=== PATIENT | male | born 1960 | race Caucasian/White ===

== ENCOUNTER 2020-10-29 08:40 | Emergency (ER) | payer OTHER, SELFPAY ==
--- NOTE | 2020-10-29 10:22 | EDPHYS ---
Physician Documentation [facility] Name: Ander Jean Age: 60 yrs Sex: Male : 1960 Arrival Date: 10/29/2020 Time: 08:46 Bed Waiting Private MD: ED Physician Pablo Velasquez HPI: 10/29 10:15 This 60 yrs old Male presents to ER via Unassigned with complaints of Foot jr8 Pain. 10:15 The patient presents with pain, tenderness. The complaints affect the right ankle. jr8 Onset: The symptoms/episode began/occurred acutely, today. Associated signs and symptoms: The patient has no apparent associated signs or symptoms. Severity of symptoms: At their worst the symptoms were mild, in the emergency department the symptoms are unchanged. The patient has not experienced similar symptoms in the past. The patient has not recently seen a physician. 10:19 This is a 60-year-old patient that presented to the emergency room with right lateral jr8 malleoli or pain. Stated that it started acutely but does not remember doing anything. Denies past trauma to the region as well.. Historical: - Allergies: 10:28 Codeine; ca1 10:28 PENICILLINS; ca1 - PMHx: 10:28 Hypertension; ca1 - Immunization history:: Client reports receiving the 2nd dose of the Covid vaccine, Client reports receiving the 1st dose of the Covid vaccine. - Social history:: Smoking status: Patient denies any tobacco usage or history of. ROS: 10:19 Eyes: Negative for injury, pain, redness, and discharge, ENT: Negative for injury, jr8 pain, and discharge, Neck: Negative for injury, pain, and swelling, Cardiovascular: Negative for chest pain, palpitations, and edema, Respiratory: Negative for shortness of breath, cough, wheezing, and pleuritic chest pain, Abdomen/GI: Negative for abdominal pain, nausea, vomiting, diarrhea, and constipation, Back: Negative for injury and pain, Skin: Negative for injury, rash, and discoloration, Neuro: Negative for headache, weakness, numbness, tingling, and seizure. 10:19 MS/extremity: Positive for pain, tenderness, of the right ankle. Exam: 10:19 Constitutional: This is a well developed, well nourished patient who is awake, alert, jr8 and in no acute distress. Cardiovascular: Regular rate and rhythm with a normal S1 and S2. No gallops, murmurs, or rubs. Normal PMI, no JVD. No pulse deficits. Respiratory: Lungs have equal breath sounds bilaterally, clear to auscultation and percussion. No rales, rhonchi or wheezes noted. No increased work of breathing, no retractions or nasal flaring. Skin: Warm, dry with normal turgor. Normal color with no rashes, no lesions, and no evidence of cellulitis. Neuro: Awake and alert, GCS 15, oriented to person, place, time, and situation. Cranial nerves II-XII grossly intact. Motor strength 5/5 in all extremities. Sensory grossly intact. Cerebellar exam normal. Normal gait. 10:19 Musculoskeletal/extremity: Extremities: grossly normal except: noted in the right ankle: pain, tenderness, Mild swelling over the right lateral malleolus. No external signs of trauma, ROM: intact in all extremities, full active range of motion, full passive range of motion, Circulation is intact in all extremities. Sensation intact. Vital Signs: 10:26 Resp 16 S; Temp 97.6(TE); Pulse Ox 100% on R/A; Weight 154.22 kg (R); Pain 6/10; ca1 10:29 Pulse 63; ca1 10:30 BP 116 / 63; ca1 MDM: 08:59 Patient medically screened. jr8 10:19 Data reviewed: vital signs, nurses notes, radiologic studies, plain films. Data jr8 interpreted: Pulse oximetry: on room air is 100 %. Interpretation: normal. Counseling: I had a detailed discussion with the patient and/or guardian regarding: the historical points, exam findings, and any diagnostic results supporting the discharge/admit diagnosis, radiology results, the need for outpatient follow up, a family practitioner. 10/29 09:34 Order name: XRAY Foot RIGHT 3 View jr8 Administered Medications: No medications were administered Disposition: 19:11 Co-signature as Attending Physician, Pablo Velasquez MD I agree with the assessment and kdr plan of care. Disposition Summary: 10/29/20 10:21 Discharge Ordered Location: Home jr8 Problem: new jr8 Symptoms: have improved jr8 Condition: Stable jr8 Diagnosis - Pain in ankle and joints of foot jr8 Followup: jr8 - With: Private Physician - When: As needed - Reason: Recheck today's complaints, Continuance of care, Re-evaluation by your physician Discharge Instructions: - Discharge Summary Sheet jr8 - Ankle Pain jr8 Forms: - Medication Reconciliation Form jr8 - Thank You Letter jr8 - Antibiotic Education jr8 - Prescription Opioid Use jr8 Signatures: Dispatcher [employer] EDPablo Gandara MD MD kdr Roszak, Josh, PA PA jr8 Radha Davila RN RN ca1
--- NOTE | 2020-10-29 10:31 | ER ---
Nurse's Notes [facility] Name: Ander Jean Age: 60 yrs Sex: Male : 1960 Arrival Date: 10/29/2020 Time: 08:46 Bed Waiting Private MD: Diagnosis: Pain in ankle and joints of foot Presentation: 10/29 10:26 Chief complaint: Patient states: R foot pain, swelling x 3 days. Coronavirus screen: ca1 Client denies travel out of the [place] in the last 14 days. At this time, the client does not indicate any symptoms associated with coronavirus-19. Ebola Screen: Patient negative for fever greater than or equal to 101.5 degrees Fahrenheit, and additional compatible Ebola Virus Disease symptoms Patient denies exposure to infectious person. Patient denies travel to an Ebola-affected area in the 21 days before illness onset. No symptoms or risks identified at this time. Initial Sepsis Screen: Does the patient meet any 2 criteria? No. Patient's initial sepsis screen is negative. Does the patient have a suspected source of infection? No. Patient's initial sepsis screen is negative. Risk Assessment: Do you want to hurt yourself or someone else? Patient reports no desire to harm self or others. Onset of symptoms was October 29, 2020. 10:26 Method Of Arrival: Wheelchair ca1 10:26 Acuity: THANG 4 ca1 Historical: - Allergies: 10:28 Codeine; ca1 10:28 PENICILLINS; ca1 - PMHx: 10:28 Hypertension; ca1 - Immunization history:: Client reports receiving the 2nd dose of the Covid vaccine, Client reports receiving the 1st dose of the Covid vaccine. - Social history:: Smoking status: Patient denies any tobacco usage or history of. Screenin:29 Abuse screen: Denies threats or abuse. Denies injuries from another. Nutritional ca1 screening: No deficits noted. Tuberculosis screening: No symptoms or risk factors identified. Fall Risk None identified. Assessment: 10:29 General: Appears in no apparent distress. comfortable, Behavior is calm, cooperative, ca1 appropriate for age. Pain: Complains of pain in right ankle and dorsum of right foot Pain currently is 6 out of 10 on a pain scale. Neuro: Level of Consciousness is awake, alert, obeys commands, Oriented to person, place, time, situation. Derm: Skin is intact, is healthy with good turgor, Skin is pink, warm \T\ dry. Musculoskeletal: Circulation, motion, and sensation intact. Capillary refill < 3 seconds, Swelling present in right foot. Vital Signs: 10:26 Resp 16 S; Temp 97.6(TE); Pulse Ox 100% on R/A; Weight 154.22 kg (R); Pain 6/10; ca1 10:29 Pulse 63; ca1 10:30 BP 116 / 63; ca1 ED Course: 08:46 Patient arrived in ED. as 08:59 Wilfrido Mcfarlane PA is PHCP. jr8 08:59 Pablo Velasquez MD is Attending Physician. jr8 10:02 XRAY Foot RIGHT 3 View In Process Unspecified. EDMS 10:28 Triage completed. ca1 10:28 Arm band placed on right wrist. ca1 10:29 Patient has correct armband on for positive identification. ca1 10:29 No provider procedures requiring assistance completed. Patient did not have IV access ca1 during this emergency room visit. 10:30 Radha Davila RN is Primary Nurse. ca1 Administered Medications: No medications were administered Outcome: 10:21 Discharge ordered by . jr8 10:31 Discharged to home via wheelchair. ca1 10:31 Condition: stable 10:31 Discharge instructions given to patient, Instructed on discharge instructions, follow up and referral plans. Demonstrated understanding of instructions, follow-up care. 10:31 Patient left the ED. ca1 Signatures: Dispatcher [employer] EDMS Ana Segovia Josh, PA PA jr8 Radha Davila, RN RN ca1
[2020-10-29 11:00] VITALS: TEMP 97.6; O2SAT 100
[2020-10-29 11:08] VITALS: BP 116/63
--- NOTE | 2020-10-29 11:14 | RAD REPORT ---
EXAM DESCRIPTION: RAD - Foot Right 3 View - 10/29/2020 10:04 am CLINICAL HISTORY: Right foot pain FINDINGS: No fracture or dislocation is seen Large calcaneal spurs. Prominent spur dorsal aspect of the talonavicular joint
== END 2020-10-29 10:31 | disposition home or self-care (01) ==
LOC: ER 08:40
DX: M25.571 Pain in right ankle and joints of right foot (principal); I10 Essential (primary) hypertension; Z88.0 Allergy status to penicillin; Z88.5 Allergy status to narcotic agent
CPT/HCPCS: 99283

== ENCOUNTER 2023-07-20 17:18 | Inpatient (IN) | payer OTHER ==
--- OUTSIDE RECORDS SUMMARY | 2023-07-20 17:25 | XMS REPORT | Continuity of Care Document ---
Author Name Unknown Address [address] [place] [address] [facility] Address [address] [place] [address] Care Team Providers Care Quality Assurance Specialist Name Role Phone Judit Parker Primary Care Physician SID PRINCE Attending Clinician Unavailable ARLIN MIKE Attending Clinician Unavailab SANDY Hussein Attending Clinician Unav ailPALOMA Brown Attending Clinician Unava ilable LIDIA HALE Attending Clinician Unava ilable MALA GREEN Attending Clinician Unavailable MD LASHELL Attending Clinician Unavailab BATSHEVA Haas Attending Clinician Unavailable HIRAM MACK Attending Clinician Unavailable KATHY LOPEZ Attending Clinician Unavailable LAB90 Attending Clinician Unavailable PL, TECH 1 Attending Clinician Unavailable AZIZA ALEMAN Attending Clinician Unavailable DARIUSZ MATTHEWS Attending Clinician Unavailab GABRIELA Amaral Attending Clinician Unavailable [id number] Attending Clinician Unavailable DIANE WELSH Attending Clinician Unavailable KIM ARANA Attending Clinician Unav ailable Payers Payer Name Policy Type Policy Number Effective Date Expirati on Date Source AETMONET MARSHALL [facility] O SPECIAL PROCEDURES TECH 94 ON 9 [id number] 2023-04-26 00:00:00 Problems Condition Name Condition Details Condition Category Status Onset Date Resolution Date Last Treatment Date Treating Clinician Comments Source Type 2 diabetes mellitus Type 2 diabetes mellitus Disease Active 07-11 00:00: 00 Jessika espinoza HTN (hypertens ion) HTN (hypertens ion) Disease Active 07-11 00:00: 00 Jessika espinoza COPD (chronic obstructiv e pulmonary disease) COPD (chronic obstructiv e pulmonary disease) Disease Active 07-11 00:00: 00 Jessika espinoza Aortic arch aneurysm Aortic arch aneurysm Disease Active 07-11 00:00: 00 Jessika espinoza Hyperlipid emia Hyperlipid emia Disease Active 07-11 00:00: 00 Jessika espinoza Allergies, Adverse Reactions, Alerts Allergy Name Allergy Type Status Severity Reaction(s) Onset Date Inactive Date Treating Clinician Comments Source Penicill ins Propensi ty to adverse reaction s Active Nausea and Vomiting 07-10 00:00: 00 Jessika espinoza Penicill ins - CLASS Propensi ty to adverse reaction to drug Active 11-05 00:00: 00 Codeine Propensi ty to adverse reaction to drug Active 06-10 00:00: 00 Social History Social Habit Start Date Stop Date Quantity Comments Source Gender identity Sarah Georges - External Sexual orientation Tina adamelai Georges - External History of Social function 2022-07-11 00:00:00 2022-07-11 00:00:00 Jessika Georges - External Sex Assigned At 1960 00:00:00 1960 00:00:00 Jessika Georges - External Smoking Status Start Date Stop Date Source Never smoked tobacco Jessika Georges - External Medications Ordered Medication Name Filled Medication Name Start Date Stop Date Current Medication? Ordering Clinician Indication Dosage Frequency Signature (SIG) Comments Components Source Albuterol Sulfate 108 (90 Base) MCG/ACT inhalation AEROSOL POWDER, BREATH ACTIVATED 11-13 11:10: 22 11-13 00:00 :00 No Inhale into the lungs Jessika espinoza Montelukast (SINGULAIR) 10 MG oral Tablet tablet 11-13 11:10: 22 11-13 00:00 :00 No 10mg Take 1 tablet (10 mg total) by mouth nightly. Jessika espinoza Ascorbic Acid (VITAMIN C OR) 11-13 11:01: 46 Yes Take by mouth Jessika espinoza Glimepiride 2 MG oral Tablet 11-13 00:00: 00 Yes [id number] TAKE 1 TABLET (2 MG) BY MOUTH EVERY MORNING BEFORE BREAKFAST. Jessika espinoza LISINOPRIL- HCTZ 20-25 MG oral Tablet 11-13 00:00: 00 Yes [id number] 2{tbl} Take 2 tablets by mouth daily. Jessika espinoza Atorvastati n Calcium 10 MG oral Tablet 11-13 00:00: 00 Yes [id number] 10mg Take 1 tablet (10 mg total) by mouth nightly. Jessika espinoza Montelukast (SINGULAIR) 10 MG oral Tablet tablet 11-13 00:00: 00 Yes [id number] 10mg Take 1 tablet (10 mg total) by mouth nightly. Jessika espinoza Albuterol Sulfate 108 (90 Base) MCG/ACT inhalation AEROSOL POWDER, BREATH ACTIVATED 11-13 00:00: 00 Yes [id number] 1{inhal ation} Inhale 1 Inhalation into the lungs every 4 to 6 hours as needed. Jessika espinoza Albuterol-I pratropium 0.5-2.5 (3) MG/3ML inhalation Solution 11-13 00:00: 00 Yes [id number] 2.5mg Inhale 3 mL (2.5 mg total) into the lungs every 6 (six) hours. Jessika espinoza Fluticasone -Salmeterol 250-50 MCG/ACT inhalation AEROSOL POWDER, BREATH ACTIVATED 11-13 00:00: 00 Yes [id number] 1{puff} Inhale 1 puff into the lungs 2 times daily. Jessika espinoza Ipratropium (ATROVENT) 0.02 % inhalation Solution 11-13 00:00: 00 Yes [id number] 500ug Take 2.5 mL (500 mcg total) by nebulizati on 3 times daily. Jessika espinoza Trulicity 0.75 MG/0.5ML subcutaneou s Solution Pen-injecto r 11-13 00:00: 00 Yes [id number] .75mg Inject 0.75 mg into the skin once a week. Jessika espinoza Atorvastati n Calcium 10 MG oral Tablet 8-11 00:00: 00 11-13 00:00 :00 No [id number] 10mg Take 1 tablet (10 mg total) by mouth nightly Jessika espinoza Glimepiride 2 MG oral Tablet 07 00:00: 00 11-13 00:00 :00 No [id number] TAKE 1 TABLET (2 MG) BY MOUTH EVERY MORNING BEFORE BREAKFAST Jessika espinoza Carvedilol 3.125 MG oral Tablet 10-18 00:00: 00 Yes 3.125mg Take 1 tablet (3.125 mg total) by mouth in the morning and 1 tablet (3.125 mg total) in the evening. Take with meals. Jessika espinzoa Albuterol-I pratropium 0.5-2.5 (3) MG/3ML inhalation Solution 10-16 00:00: 00 11-13 00:00 :00 No [id number] 2.5mg Inhale 3 mL (2.5 mg total) into the lungs every 6 (six) hours Jessika espinoza Levocetiriz ine Dihydrochlo ride 5 MG oral Tablet 15 00:00: 00 Yes [id number] 5mg Take 1 tablet (5 mg total) by mouth every day at 5:00 PM Jessika espinoza Clonidine (CATAPRES) 0.2 MG oral Tablet 07-27 09:33: 42 Yes .4mg Take 2 tablets (0.4 mg total) by mouth daily Jessika espinoza Glimepiride 2 MG oral Tablet 07-27 00:00: 00 Yes [id number] 2mg Take 1 tablet (2 mg total) by mouth every morning (before breakfast) Jessika espinoza Ipratropium (ATROVENT) 0.02 % inhalation Solution 07-18 00:00: 00 11-13 00:00 :00 No Jessika espinoza Albuterol-I pratropium 0.5-2.5 (3) MG/3ML inhalation Solution 07-14 00:00: 00 Yes [id number] 2.5mg Inhale 3 mL (2.5 mg total) into the lungs every 6 (six) hours Jessika espinoza Carvedilol 25 MG oral Tablet 07-14 00:00: 00 Yes [id number] 25mg Take 1 tablet (25 mg total) by mouth in the morning and 1 tablet (25 mg total) in the evening. Take with meals. Jessika espinoza Fenofibrate 160 MG oral Tablet 07-14 00:00: 00 Yes [id number] 160mg Take 1 tablet (160 mg total) by mouth daily Jessika espinoza Metformin HCl 500 MG oral Tablet 07-14 00:00: 00 Yes [id number] 500mg Take 1 tablet (500 mg total) by mouth in the morning and 1 tablet (500 mg total) in the evening. Take with meals. Jessika espinoza Montelukast (SINGULAIR) 10 MG oral Tablet tablet 07-14 00:00: 00 Yes [id number] 10mg Take 1 tablet (10 mg total) by mouth nightly Jessika espinoza LISINOPRIL- HCTZ 20-25 MG oral Tablet 07-14 00:00: 00 11-13 00:00 :00 No [id number] 1{tbl} Take 1 tablet by mouth 2 times daily Jessika espinoza Metformin HCl 1000 MG oral Tablet 07-13 00:00: 00 Yes [id number] 1000mg Take 1 tablet (1,000 mg total) by mouth daily (with breakfast) . Jessika espinoza Albuterol (PROVENTIL) (2.5 MG/3ML) 0.083% inhalation Inhalant Solution 07-13 00:00: 00 Yes [id number] 2.5mg Take 2.5 mg by nebulizati on once for 1 dose Jessika espinoza Atorvastati n Calcium 10 MG oral Tablet 07-13 00:00: 00 Yes [id number] Jessika espinoza Lisinopril 10 MG oral Tablet 07-13 00:00: 00 Yes Jessika espinoza LISINOPRIL- HCTZ 20-25 MG oral Tablet 07-11 10:: 07-11 00:00 :00 No 1{tbl} Take 1 tablet by mouth 2 times daily Jessika espinoza Carvedilol 25 MG oral Tablet 07-11 10:07-11 00:00 :00 No 25mg Take 1 tablet (25 mg total) by mouth in the morning and 1 tablet (25 mg total) in the evening. Take with meals. Jessika espinoza Metformin HCl 500 MG oral Tablet 07-11 10:07-11 00:00 :00 No 500mg Take 1 tablet (500 mg total) by mouth in the morning and 1 tablet (500 mg total) in the evening. Take with meals. Jessika espinoza Montelukast (SINGULAIR) 10 MG oral Tablet tablet 07-11 10:: 07-11 00:00 :00 No 10mg Take 1 tablet (10 mg total) by mouth nightly Jessika espinoza Fenofibrate 160 MG oral Tablet 07-11 10:: 07-11 00:00 :00 No 160mg Take 1 tablet (160 mg total) by mouth daily Jessika espinoza Albuterol-I pratropium 0.5-2.5 (3) MG/3ML inhalation Solution 07-11 10:: 07-11 00:00 :00 No 2.5mg Inhale 3 mL (2.5 mg total) into the lungs every 6 (six) hours Jessika espinoza Albuterol Sulfate 108 (90 Base) MCG/ACT inhalation AEROSOL POWDER, BREATH ACTIVATED 07-11 09:37: 33 Yes Inhale into the lungs Jessika espinoza Ascorbic Acid (VITAMIN C OR) 07-11 09:37: 33 Yes Take by mouth Jessika espinoza Cetirizine HCl 10 MG oral Chewable Tablet 07-11 09:37: 33 Yes 10mg Take 1 tablet (10 mg total) by mouth daily Jessika espinoza Montelukast (SINGULAIR) 10 MG oral Tablet tablet 07-11 00:00: 00 Yes [id number] 10mg Take 1 tablet (10 mg total) by mouth nightly Jessika espinoza Metformin HCl 500 MG oral Tablet 07-11 00:00: 00 Yes [id number] 500mg Take 1 tablet (500 mg total) by mouth in the morning and 1 tablet (500 mg total) in the evening. Take with meals. Jessika espinoza LISINOPRIL- HCTZ 20-25 MG oral Tablet 07-11 00:00: 00 Yes [id number] 1{tbl} Take 1 tablet by mouth 2 times daily Jessika espinoza Fenofibrate 160 MG oral Tablet 07-11 00:00: 00 Yes [id number] 160mg Take 1 tablet (160 mg total) by mouth daily Jessika espinoza Carvedilol 25 MG oral Tablet 07-11 00:00: 00 Yes [id number] 25mg Take 1 tablet (25 mg total) by mouth in the morning and 1 tablet (25 mg total) in the evening. Take with meals. Jessika espinoza Albuterol-I pratropium 0.5-2.5 (3) MG/3ML inhalation Solution 07-11 00:00: 00 Yes [id number] 2.5mg Inhale 3 mL (2.5 mg total) into the lungs every 6 (six) hours Jessika espinoza Fluticasone -Salmeterol 250-50 MCG/ACT inhalation AEROSOL POWDER, BREATH ACTIVATED 07-10 00:00: 00 11-13 00:00 :00 No Jessika Seybold - Externa l lisinopril 20 mg-hydrochl orothiazide 25 mg tablet - 00:00: 00 No 2mg doxycycline hyclate 100 mg capsule - 00:00: 00 No 1mg Dose Unknown 08-29 00:00: 00 No doxycycline hyclate 100 mg capsule 08-29 00:00: 00 No 1mg ProAir HFA 90 mcg/actuati on aerosol inhaler 08-03 00:00: 00 No 12mcg/a ctuatio n Wixela Inhub 250 mcg-50 mcg/dose powder for inhalation 08-03 00:00: 00 No 1mcg/do se lisinopril 20 mg-hydrochl orothiazide 25 mg tablet 08-03 00:00: 00 No 2mg fenofibrate 160 mg tablet 08-03 00:00: 00 No 1mg levocetiriz ine 5 mg tablet 08-03 00:00: 00 No 1mg metformin 500 mg tablet 08-03 00:00: 00 No 1mg montelukast 10 mg tablet 08-03 00:00: 00 No 1mg carvedilol 25 mg tablet 08-03 00:00: 00 No 1mg albuterol sulfate 2.5 mg/3 mL (0.083 %) solution for nebulizatio n 08-03 00:00: 00 No 3/3 mL (0.083 %) ipratropium 0.5 mg-albutero l 3 mg (2.5 mg base)/3 mL nebulizatio n soln 08-03 00:00: 00 No 3mg base)/3 mL Dose Unknown 08-03 00:00: 00 No Dose Unknown 08-03 00:00: 00 No Dose Unknown 08-03 00:00: 00 No ProAir HFA 90 mcg/actuati on aerosol inhaler 08-03 00:00: 00 No 12mcg/a ctuatio n Wixela Inhub 250 mcg-50 mcg/dose powder for inhalation 0 - 00:00: 00 No 1mcg/do se lisinopril 20 mg-hydrochl orothiazide 25 mg tablet - 00:00: 00 No 2mg fenofibrate 160 mg tablet 08-03 00:00: 00 No 1mg Dose Unknown 08-03 00:00: 00 No metformin 500 mg tablet - 00:00: 00 No 1mg montelukast 10 mg tablet 08-03 00:00: 00 No 1mg carvedilol 25 mg tablet 08-03 00:00: 00 No 1mg albuterol sulfate 2.5 mg/3 mL (0.083 %) solution for nebulizatio n 08-03 00:00: 00 No 3/3 mL (0.083 %) ipratropium 0.5 mg-albutero l 3 mg (2.5 mg base)/3 mL nebulizatio n soln 08-03 00:00: 00 No 3mg base)/3 mL Dose Unknown 08-03 00:00: 00 No Dose Unknown 08-03 00:00: 00 No Dose Unknown 08-03 00:00: 00 No lisinopril 20 mg-hydrochl orothiazide 25 mg tablet 08-01 00:00: 00 No 2mg lisinopril 20 mg-hydrochl orothiazide 25 mg tablet 08-01 00:00: 00 No 2mg fenofibrate 160 mg tablet - 00:00: 00 No 1mg fenofibrate 160 mg tablet 05-07 00:00: 00 No 1mg ProAir HFA 90 mcg/actuati on aerosol inhaler - 00:00: 00 No 12mcg/a ctuatio n Wixela Inhub 250 mcg-50 mcg/dose powder for inhalation - 00:00: 00 No 1mcg/do se erythromyci n 5 mg/gram (0.5 %) eye ointment - 00:00: 00 No 1(0.5 %) levocetiriz ine 5 mg tablet 2- 00:00: 00 No 1mg montelukast 10 mg tablet - 00:00: 00 No 1mg lisinopril 20 mg-hydrochl orothiazide 25 mg tablet - 00:00: 00 No 2mg metformin 500 mg tablet - 00:00: 00 No 1mg ProAir HFA 90 mcg/actuati on aerosol inhaler - 00:00: 00 No 12mcg/a ctuatio n Wixela Inhub 250 mcg-50 mcg/dose powder for inhalation - 00:00: 00 No 1mcg/do se erythromyci n 5 mg/gram (0.5 %) eye ointment - 00:00: 00 No 1(0.5 %) levocetiriz ine 5 mg tablet - 00:00: 00 No 1mg montelukast 10 mg tablet - 00:00: 00 No 1mg lisinopril 20 mg-hydrochl orothiazide 25 mg tablet - 00:00: 00 No 2mg metformin 500 mg tablet - 00:00: 00 No 1mg Bromfed DM 2 mg-30 mg-10 mg/5 mL oral syrup - 00:00: 00 No 10mg/5 mL albuterol sulfate 2.5 mg/3 mL (0.083 %) solution for nebulizatio n - 00:00: 00 No 3/3 mL (0.083 %) ipratropium 0.5 mg-albutero l 3 mg (2.5 mg base)/3 mL nebulizatio n soln - 00:00: 00 No 3mg base)/3 mL Bromfed DM 2 mg-30 mg-10 mg/5 mL oral syrup 1-10 00:00: 00 No 10mg/5 mL albuterol sulfate 2.5 mg/3 mL (0.083 %) solution for nebulizatio n 04-04 00:00: 00 No 3/3 mL (0.083 %) ipratropium 0.5 mg-albutero l 3 mg (2.5 mg base)/3 mL nebulizatio n soln 04-04 00:00: 00 No 3mg base)/3 mL levocetiriz ine 5 mg tablet 2020-03 00:00: 00 No 1mg levocetiriz ine 5 mg tablet 2020-03 00:00: 00 No 1mg levocetiriz ine 5 mg tablet 2020-03 00:00: 00 No 1mg levocetiriz ine 5 mg tablet 2020-03 00:00: 00 No 1mg ProAir HFA 90 mcg/actuati on aerosol inhaler 2020-03 00:00: 00 No 12mcg/a ctuatio n Wixela Inhub 250 mcg-50 mcg/dose powder for inhalation 2020-03 00:00: 00 No 1mcg/do se metformin 500 mg tablet 2020-03 00:00: 00 No 1mg lisinopril 20 mg-hydrochl orothiazide 25 mg tablet 2020-03 00:00: 00 No 2mg montelukast 10 mg tablet 2020-03 00:00: 00 No 1mg carvedilol 25 mg tablet 2020-03 00:00: 00 No 1mg simvastatin 20 mg tablet 2020-03 00:00: 00 No 1mg albuterol sulfate 2.5 mg/3 mL (0.083 %) solution for nebulizatio n 2020-03 00:00: 00 No 3/3 mL (0.083 %) ipratropium 0.5 mg-albutero l 3 mg (2.5 mg base)/3 mL nebulizatio n soln 2020-03 00:00: 00 No 3mg base)/3 mL ProAir HFA 90 mcg/actuati on aerosol inhaler 2020-03 00:00: 00 No 12mcg/a ctuatio n Wixela Inhub 250 mcg-50 mcg/dose powder for inhalation 2020-03 00:00: 00 No 1mcg/do se metformin 500 mg tablet 2020-03 00:00: 00 No 1mg lisinopril 20 mg-hydrochl orothiazide 25 mg tablet 2020-03 00:00: 00 No 2mg montelukast 10 mg tablet 2020-03 00:00: 00 No 1mg carvedilol 25 mg tablet 2020-03 00:00: 00 No 1mg simvastatin 20 mg tablet 2020-03 00:00: 00 No 1mg albuterol sulfate 2.5 mg/3 mL (0.083 %) solution for nebulizatio n 2020-03 00:00: 00 No 3/3 mL (0.083 %) ipratropium 0.5 mg-albutero l 3 mg (2.5 mg base)/3 mL nebulizatio n soln 2020-03 00:00: 00 No 3mg base)/3 mL levocetiriz ine 5 mg tablet 10-29 00:00: 00 No 1mg levocetiriz ine 5 mg tablet 10-29 00:00: 00 No 1mg ProAir HFA 90 mcg/actuati on aerosol inhaler 10-27 00:00: 00 No 12mcg/a ctuatio n Wixela Inhub 250 mcg-50 mcg/dose powder for inhalation 10-27 00:00: 00 No 1mcg/do se montelukast 10 mg tablet 10-27 00:00: 00 No 1mg lisinopril 20 mg-hydrochl orothiazide 25 mg tablet 10-27 00:00: 00 No 2mg metformin 500 mg tablet 10-27 00:00: 00 No 1mg loratadine- pseudoephed rine ER 10 mg-240 mg tablet,exte nded [id number] 10-27 00:00: 00 No 1mg carvedilol 25 mg tablet 10-27 00:00: 00 No 1mg simvastatin 20 mg tablet 10-27 00:00: 00 No 1mg albuterol sulfate 2.5 mg/3 mL (0.083 %) solution for nebulizatio n 10-27 00:00: 00 No 3/3 mL (0.083 %) ipratropium 0.5 mg-albutero l 3 mg (2.5 mg base)/3 mL nebulizatio n soln 10-27 00:00: 00 No 3mg base)/3 mL ProAir HFA 90 mcg/actuati on aerosol inhaler 10-27 00:00: 00 No 12mcg/a ctuatio n Wixela Inhub 250 mcg-50 mcg/dose powder for inhalation 10-27 00:00: 00 No 1mcg/do se montelukast 10 mg tablet 10-27 00:00: 00 No 1mg lisinopril 20 mg-hydrochl orothiazide 25 mg tablet 10-27 00:00: 00 No 2mg metformin 500 mg tablet 10-27 00:00: 00 No 1mg loratadine- pseudoephed rine ER 10 mg-240 mg tablet,exte nded [id number] 10-27 00:00: 00 No 1mg carvedilol 25 mg tablet 10-27 00:00: 00 No 1mg simvastatin 20 mg tablet 10-27 00:00: 00 No 1mg albuterol sulfate 2.5 mg/3 mL (0.083 %) solution for nebulizatio n 10-27 00:00: 00 No 3/3 mL (0.083 %) ipratropium 0.5 mg-albutero l 3 mg (2.5 mg base)/3 mL nebulizatio n soln 10-27 00:00: 00 No 3mg base)/3 mL montelukast 10 mg tablet 10-01 00:00: 00 No 1mg montelukast 10 mg tablet 10-01 00:00: 00 No 1mg polymyxin B sulfate 10,000 unit-trimet hoprim 1 mg/mL eye drops 08-19 00:00: 00 No 11 mg/mL polymyxin B sulfate 10,000 unit-trimet hoprim 1 mg/mL eye drops 08-19 00:00: 00 No 11 mg/mL ProAir HFA 90 mcg/actuati on aerosol inhaler 07-13 00:00: 00 No 12mcg/a ctuatio n Wixela Inhub 250 mcg-50 mcg/dose powder for inhalation 07-13 00:00: 00 No 1mcg/do se metformin 500 mg tablet 07-13 00:00: 00 No 1mg lisinopril 20 mg-hydrochl orothiazide 25 mg tablet 07-13 00:00: 00 No 2mg montelukast 10 mg tablet 07-13 00:00: 00 No 1mg carvedilol 25 mg tablet 07-13 00:00: 00 No 1mg simvastatin 20 mg tablet 07-13 00:00: 00 No 1mg ipratropium 0.5 mg-albutero l 3 mg (2.5 mg base)/3 mL nebulizatio n soln 07-13 00:00: 00 No 3mg base)/3 mL ProAir HFA 90 mcg/actuati on aerosol inhaler 07-13 00:00: 00 No 12mcg/a ctuatio n Wixela Inhub 250 mcg-50 mcg/dose powder for inhalation 07-13 00:00: 00 No 1mcg/do se metformin 500 mg tablet 07-13 00:00: 00 No 1mg lisinopril 20 mg-hydrochl orothiazide 25 mg tablet 07-13 00:00: 00 No 2mg montelukast 10 mg tablet 07-13 00:00: 00 No 1mg carvedilol 25 mg tablet 07-13 00:00: 00 No 1mg simvastatin 20 mg tablet 07-13 00:00: 00 No 1mg ipratropium 0.5 mg-albutero l 3 mg (2.5 mg base)/3 mL nebulizatio n soln 2021-0 4-20 00:00: 00 No 3mg base)/3 mL ProAir HFA 90 mcg/actuati on aerosol inhaler 3-16 00:00: 00 No 12mcg/a ctuatio n ProAir HFA 90 mcg/actuati on aerosol inhaler 3-16 00:00: 00 No 12mcg/a ctuatio n lisinopril 20 mg-hydrochl orothiazide 25 mg tablet 1-20 00:00: 00 No 2mg montelukast 10 mg tablet 1-20 00:00: 00 No 1mg metformin 500 mg tablet 1-20 00:00: 00 No 1mg lisinopril 20 mg-hydrochl orothiazide 25 mg tablet -20 00:00: 00 No 2mg montelukast 10 mg tablet - 00:00: 00 No 1mg metformin 500 mg tablet 1- 00:00: 00 No 1mg ProAir HFA 90 mcg/actuati on aerosol inhaler 1-15 00:00: 00 No 12mcg/a ctuatio n ProAir HFA 90 mcg/actuati on aerosol inhaler 1-15 00:00: 00 No 12mcg/a ctuatio n lisinopril 20 mg-hydrochl orothiazide 25 mg tablet 2019-03 2-30 00:00: 00 No 2mg lisinopril 20 mg-hydrochl orothiazide 25 mg tablet 2019-03 2-30 00:00: 00 No 2mg metformin 500 mg tablet 2019-03 0-09 00:00: 00 No 1mg simvastatin 20 mg tablet 2019-03 0-09 00:00: 00 No 1mg metformin 500 mg tablet 2019-03 0-09 00:00: 00 No 1mg simvastatin 20 mg tablet 2019-03 0-09 00:00: 00 No 1mg ipratropium 0.5 mg-albutero l 3 mg (2.5 mg base)/3 mL nebulizatio n soln 2019-03 0-07 00:00: 00 No 3mg base)/3 mL ipratropium 0.5 mg-albutero l 3 mg (2.5 mg base)/3 mL nebulizatio n soln 2019-03 0-07 00:00: 00 No 3mg base)/3 mL carvedilol 25 mg tablet 0 12-19 00:00: 00 No 1mg lisinopril 20 mg-hydrochl orothiazide 25 mg tablet 12-19 00:00: 00 No 2mg montelukast 10 mg tablet 0 12-19 00:00: 00 No 1mg lisinopril 20 mg-hydrochl orothiazide 25 mg tablet 12-19 00:00: 00 No 2mg montelukast 10 mg tablet 12-19 00:00: 00 No 1mg carvedilol 25 mg tablet 12-19 00:00: 00 No 1mg metformin 500 mg tablet 0 10-04 00:00: 00 No 1mg metformin 500 mg tablet 10-04 00:00: 00 No 1mg lisinopril 20 mg-hydrochl orothiazide 25 mg tablet 09-28 00:00: 00 No 2mg carvedilol 25 mg tablet 09-28 00:00: 00 No 1mg lisinopril 20 mg-hydrochl orothiazide 25 mg tablet 09-28 00:00: 00 No 2mg carvedilol 25 mg tablet 09-28 00:00: 00 No 1mg ProAir HFA 90 mcg/actuati on aerosol inhaler 08-20 00:00: 00 No 12mcg/a ctuatio n ProAir HFA 90 mcg/actuati on aerosol inhaler 08-20 00:00: 00 No 12mcg/a ctuatio n ofloxacin 0.3 % ear drops 08-12 00:00: 00 No 3% ciprofloxac in 500 mg tablet 08-12 00:00: 00 No 1mg prednisone 20 mg tablet 08-12 00:00: 00 No mg ofloxacin 0.3 % ear drops 08-12 00:00: 00 No 3% ciprofloxac in 500 mg tablet 08-12 00:00: 00 No 1mg prednisone 20 mg tablet 08-12 00:00: 00 No mg simvastatin 10 mg tablet 07-17 00:00: 00 No 1mg simvastatin 10 mg tablet 07-17 00:00: 00 No 1mg neomycin-po lymyxin-hyd rocort 3.5 mg-10,000 unit/mL-1 % ear drops,susp 07-14 00:00: 00 No 3mg/mL- unit/mL -% ProAir HFA 90 mcg/actuati on aerosol inhaler 07-14 00:00: 00 No 12mcg/a ctuatio n Advair Diskus 250 mcg-50 mcg/dose powder for inhalation 07-14 00:00: 00 No 1mcg/do se metformin 500 mg tablet 07-14 00:00: 00 No 1mg lisinopril 20 mg-hydrochl orothiazide 25 mg tablet 07-14 00:00: 00 No 2mg montelukast 10 mg tablet 07-14 00:00: 00 No 1mg carvedilol 25 mg tablet 07-14 00:00: 00 No 1mg lovastatin 20 mg tablet 07-14 00:00: 00 No 1mg azithromyci n 250 mg tablet 07-14 00:00: 00 No mg neomycin-po lymyxin-hyd rocort 3.5 mg-10,000 unit/mL-1 % ear drops,susp 07-14 00:00: 00 No 3mg/mL- unit/mL -% ProAir HFA 90 mcg/actuati on aerosol inhaler 07-14 00:00: 00 No 12mcg/a ctuatio n Advair Diskus 250 mcg-50 mcg/dose powder for inhalation 07-14 00:00: 00 No 1mcg/do se metformin 500 mg tablet 07-14 00:00: 00 No 1mg lisinopril 20 mg-hydrochl orothiazide 25 mg tablet 07-14 00:00: 00 No 2mg montelukast 10 mg tablet 07-14 00:00: 00 No 1mg carvedilol 25 mg tablet 07-14 00:00: 00 No 1mg lovastatin 20 mg tablet 07-14 00:00: 00 No 1mg azithromyci n 250 mg tablet 07-14 00:00: 00 No mg ProAir HFA 90 mcg/actuati on aerosol inhaler 04-16 00:00: 00 No 12mcg/a ctuatio n Advair Diskus 250 mcg-50 mcg/dose powder for inhalation 04-16 00:00: 00 No 1mcg/do se metformin 500 mg tablet 04-16 00:00: 00 No 1mg lisinopril 20 mg-hydrochl orothiazide 25 mg tablet 04-16 00:00: 00 No 2mg montelukast 10 mg tablet 04-16 00:00: 00 No 1mg carvedilol 25 mg tablet 04-16 00:00: 00 No 1mg lovastatin 20 mg tablet 04-16 00:00: 00 No 1mg ProAir HFA 90 mcg/actuati on aerosol inhaler 04-16 00:00: 00 No 12mcg/a ctuatio n Advair Diskus 250 mcg-50 mcg/dose powder for inhalation 04-16 00:00: 00 No 1mcg/do se metformin 500 mg tablet 04-16 00:00: 00 No 1mg lisinopril 20 mg-hydrochl orothiazide 25 mg tablet 04-16 00:00: 00 No 2mg montelukast 10 mg tablet 04-16 00:00: 00 No 1mg carvedilol 25 mg tablet 04-16 00:00: 00 No 1mg lovastatin 20 mg tablet 04-16 00:00: 00 No 1mg ProAir HFA 90 mcg/actuati on aerosol inhaler 2018-03 00:00: 00 No 12mcg/a ctuatio n lisinopril 20 mg-hydrochl orothiazide 25 mg tablet 2018-03 00:00: 00 No 2mg metformin 500 mg tablet 2018-03 015 00:00: 00 No 1mg lovastatin 20 mg tablet 2018-03 0 00:00: 00 No 1mg ProAir HFA 90 mcg/actuati on aerosol inhaler 2018-03 00:00: 00 No 12mcg/a ctuatio n lisinopril 20 mg-hydrochl orothiazide 25 mg tablet 2018-03 00:00: 00 No 2mg metformin 500 mg tablet 2018-03 00:00: 00 No 1mg lovastatin 20 mg tablet 2018-03 00:00: 00 No 1mg carvedilol 25 mg tablet 2018-03 00:00: 00 No 1mg carvedilol 25 mg tablet 2018-03 00:00: 00 No 1mg lisinopril 20 mg-hydrochl orothiazide 25 mg tablet 12-11 00:00: 00 No 2mg lisinopril 20 mg-hydrochl orothiazide 25 mg tablet 12-11 00:00: 00 No 2mg lisinopril 20 mg-hydrochl orothiazide 25 mg tablet 09-04 00:00: 00 No 2mg metformin 500 mg tablet 09-04 00:00: 00 No 1mg levocetiriz ine 5 mg tablet 09-04 00:00: 00 No 1mg carvedilol 25 mg tablet 09-04 00:00: 00 No 1mg lovastatin 20 mg tablet 09-04 00:00: 00 No 1mg ipratropium 0.5 mg-albutero l 3 mg (2.5 mg base)/3 mL nebulizatio n soln 09-04 00:00: 00 No 3mg base)/3 mL lisinopril 20 mg-hydrochl orothiazide 25 mg tablet 09-04 00:00: 00 No 2mg metformin 500 mg tablet 09-04 00:00: 00 No 1mg levocetiriz ine 5 mg tablet 09-04 00:00: 00 No 1mg carvedilol 25 mg tablet 09-04 00:00: 00 No 1mg lovastatin 20 mg tablet 09-04 00:00: 00 No 1mg ipratropium 0.5 mg-albutero l 3 mg (2.5 mg base)/3 mL nebulizatio n soln 09-04 00:00: 00 No 3mg base)/3 mL clarithromy marietta 500 mg tablet 07-04 00:00: 00 No 1mg clarithromy marietta 500 mg tablet 07-04 00:00: 00 No 1mg neomycin-po lymyxin-hyd rocort 3.5 mg-10,000 unit/mL-1 % ear drops,susp 06-27 00:00: 00 No 3mg/mL- unit/mL -% neomycin-po lymyxin-hyd rocort 3.5 mg-10,000 unit/mL-1 % ear drops,susp 06-27 00:00: 00 No 3mg/mL- unit/mL -% prednisone 20 mg tablet 06-24 00:00: 00 No mg azithromyci n 250 mg tablet 06-24 00:00: 00 No mg prednisone 20 mg tablet 06-24 00:00: 00 No mg azithromyci n 250 mg tablet 06-24 00:00: 00 No mg lisinopril 20 mg-hydrochl orothiazide 25 mg tablet 06-13 00:00: 00 No 2mg carvedilol 25 mg tablet 3 00:00: 00 No 1mg lovastatin 20 mg tablet 3 00:00: 00 No 1mg lisinopril 20 mg-hydrochl orothiazide 25 mg tablet 3 00:00: 00 No 2mg carvedilol 25 mg tablet 3 00:00: 00 No 1mg lovastatin 20 mg tablet 3 00:00: 00 No 1mg metformin 500 mg tablet 2-20 00:00: 00 No 1mg metformin 500 mg tablet 220 00:00: 00 No 1mg ipratropium -albuterol 0.5 mg-3 mg(2.5 mg base)/3 mL nebulizatio n soln 19 00:00: 00 No 3mg base)/3 mL ipratropium -albuterol 0.5 mg-3 mg(2.5 mg base)/3 mL nebulizatio n soln 05-14 00:00: 00 No 3mg base)/3 mL Loratadine- D 10 mg-240 mg tablet,exte nded release 24 hr 04-24 00:00: 00 No 1mg prednisone 20 mg tablet 04-24 00:00: 00 No mg azithromyci n 250 mg tablet 04-24 00:00: 00 No mg promethazin e-DM 6.25 mg-15 mg/5 mL oral syrup 04-24 00:00: 00 No 10mg/5 mL Loratadine- D 10 mg-240 mg tablet,exte nded release 24 hr 04-24 00:00: 00 No 1mg prednisone 20 mg tablet 04-24 00:00: 00 No mg azithromyci n 250 mg tablet 04-24 00:00: 00 No mg promethazin e-DM 6.25 mg-15 mg/5 mL oral syrup 04-24 00:00: 00 No 10mg/5 mL ProAir HFA 90 mcg/actuati on aerosol inhaler 2017-03 00:00: 00 No 12mcg/a ctuatio n lisinopril 20 mg-hydrochl orothiazide 25 mg tablet 2017-03 00:00: 00 No 2mg carvedilol 25 mg tablet 2017-03 00:00: 00 No 1mg lovastatin 20 mg tablet 2017-03 00:00: 00 No 1mg ProAir HFA 90 mcg/actuati on aerosol inhaler 2017-03 00:00: 00 No 12mcg/a ctuatio n lisinopril 20 mg-hydrochl orothiazide 25 mg tablet 2017-03 00:00: 00 No 2mg carvedilol 25 mg tablet 2017-03 00:00: 00 No 1mg lovastatin 20 mg tablet 2017-03 00:00: 00 No 1mg lisinopril 20 mg-hydrochl orothiazide 25 mg tablet 2017-03 00:00: 00 No 2mg carvedilol 25 mg tablet 2017-03 00:00: 00 No 1mg lovastatin 20 mg tablet 2017-03 00:00: 00 No 1mg lisinopril 20 mg-hydrochl orothiazide 25 mg tablet 2017-03 00:00: 00 No 2mg carvedilol 25 mg tablet 2017-03 00:00: 00 No 1mg lovastatin 20 mg tablet 2017-03 00:00: 00 No 1mg lovastatin 20 mg tablet 11-01 00:00: 00 No 1mg lovastatin 20 mg tablet 11-01 00:00: 00 No 1mg lisinopril 20 mg-hydrochl orothiazide 25 mg tablet 10-31 00:00: 00 No 2mg carvedilol 25 mg tablet 10-31 00:00: 00 No 1mg prednisone 20 mg tablet 10-31 00:00: 00 No mg promethazin e-DM 6.25 mg-15 mg/5 mL syrup 10-31 00:00: 00 No 10mg/5 mL lisinopril 20 mg-hydrochl orothiazide 25 mg tablet 10-31 00:00: 00 No 2mg carvedilol 25 mg tablet 10-31 00:00: 00 No 1mg prednisone 20 mg tablet 10-31 00:00: 00 No mg promethazin e-DM 6.25 mg-15 mg/5 mL syrup 10-31 00:00: 00 No 10mg/5 mL prednisone 20 mg tablet 10-12 00:00: 00 No 1mg Singulair 10 mg tablet 10-12 00:00: 00 No 1mg azithromyci n 250 mg tablet 10-12 00:00: 00 No 1mg prednisone 20 mg tablet 10-12 00:00: 00 No 1mg Singulair 10 mg tablet 10-12 00:00: 00 No 1mg azithromyci n 250 mg tablet 10-12 00:00: 00 No 1mg lisinopril 20 mg-hydrochl orothiazide 25 mg tablet 10-01 00:00: 00 No 2mg carvedilol 25 mg tablet 10-01 00:00: 00 No 1mg lisinopril 20 mg-hydrochl orothiazide 25 mg tablet 10-01 00:00: 00 No 2mg carvedilol 25 mg tablet 10-01 00:00: 00 No 1mg lisinopril 20 mg-hydrochl orothiazide 25 mg tablet 08-21 00:00: 00 No 2mg carvedilol 25 mg tablet 08-21 00:00: 00 No 1mg lisinopril 20 mg-hydrochl orothiazide 25 mg tablet 08-21 00:00: 00 No 2mg carvedilol 25 mg tablet 08-21 00:00: 00 No 1mg hydrochloro thiazide 25 mg tablet 2014-03 00:00: 00 No 1mg lisinopril 40 mg tablet 2014-03 00:00: 00 No 1mg clonidine HCl 0.2 mg tablet 2014-03 00:00: 00 No 1mg hydrochloro thiazide 25 mg tablet 2014-03 00:00: 00 No 1mg lisinopril 40 mg tablet 2014-03 00:00: 00 No 1mg clonidine HCl 0.2 mg tablet 2014-03 00:00: 00 No 1mg lisinopril 40 mg tablet 09-21 00:00: 00 No 1mg hydrochloro thiazide 25 mg tablet 09-21 00:00: 00 No 1mg lisinopril 40 mg tablet 09-21 00:00: 00 No 1mg hydrochloro thiazide 25 mg tablet 09-21 00:00: 00 No 1mg lisinopril 20 mg tablet 07-21 00:00: 00 No 1mg amlodipine 10 mg tablet 07-21 00:00: 00 No 1mg hydrochloro thiazide 25 mg tablet 07-21 00:00: 00 No 1mg lisinopril 20 mg tablet 07-21 00:00: 00 No 1mg amlodipine 10 mg tablet 07-21 00:00: 00 No 1mg hydrochloro thiazide 25 mg tablet 07-21 00:00: 00 No 1mg lisinopril 20 mg tablet 06-11 00:00: 00 No 1mg amlodipine 10 mg tablet 06-11 00:00: 00 No 1mg hydrochloro thiazide 25 mg tablet 06-11 00:00: 00 No 1mg clonidine HCl 0.2 mg tablet 06-11 00:00: 00 No 1mg lisinopril 20 mg tablet 06-11 00:00: 00 No 1mg amlodipine 10 mg tablet 06-11 00:00: 00 No 1mg hydrochloro thiazide 25 mg tablet 06-11 00:00: 00 No 1mg clonidine HCl 0.2 mg tablet 06-11 00:00: 00 No 1mg amlodipine 10 mg tablet 05-14 00:00: 00 No mg clonidine HCl 0.2 mg tablet 05-14 00:00: 00 No mg amlodipine 10 mg tablet 05-14 00:00: 00 No mg clonidine HCl 0.2 mg tablet 05-14 00:00: 00 No mg hydrochloro thiazide 25 mg tablet 04-16 00:00: 00 No mg clonidine HCl 0.2 mg tablet 04-16 00:00: 00 No mg hydrochloro thiazide 25 mg tablet 04-16 00:00: 00 No mg clonidine HCl 0.2 mg tablet 04-16 00:00: 00 No mg amlodipine 5 mg tablet 03-30 00:00: 00 No mg amlodipine 5 mg tablet 03-30 00:00: 00 No mg clonidine HCl 0.2 mg tablet 2013-03 00:00: 00 No mg hydrochloro thiazide 25 mg tablet 2013-03 00:00: 00 No mg amlodipine 5 mg tablet 2013-03 00:00: 00 No mg clonidine HCl 0.2 mg tablet 2013-03 00:00: 00 No mg hydrochloro thiazide 25 mg tablet 2013-03 00:00: 00 No mg amlodipine 5 mg tablet 2013-03 00:00: 00 No mg Vital Signs Vital Name Observation Time Observation Value Comments S deric Systolic blood pressure 2022-11-13 15:55:00 142 mm[Hg] Jessika lr - External Diastolic blood pressure 2022-11-13 15:55:00 80 mm[Hg] Jessika lr - External Heart rate 2022-11-13 15:55:00 57 /min Alonse y Seybold - External Body temperature 2022-11-13 15:55:00 36.11 Mela Jessika Seybold - External Respiratory rate 2022-11-13 15:55:00 18 /min Jessika Seybold - External Body height 2022-11-13 15:55:00 190.5 cm Sarah ey Seybold - External Body weight 2022-11-13 15:55:00 158.759 kg Sarah ey Seybold - External BMI 2022-11-13 15:55:00 43.75 kg/m2 Sarah ey Seybold - External Oxygen saturation in Arterial blood by Pulse oximetry 2022-11-13 15:55:00 97 /min Jessika Songybo ld - External Systolic blood pressure 2022-07-11 14:30:00 134 mm[Hg] Jessika Seybo ld - External Diastolic blood pressure 2022-07-11 14:30:00 86 mm[Hg] Jessika Seybo ld - External Heart rate 2022-07-11 14:30:00 48 /min Alonse y Seybold - External Body temperature 2022-07-11 14:30:00 35.89 Mela Jessika Seybold - External Respiratory rate 2022-07-11 14:30:00 18 /min Jessika Seybold - External Body height 2022-07-11 14:30:00 190.5 cm Sarah ey Seybold - External Body weight 2022-07-11 14:30:00 160.664 kg Sarah ey Seybold - External BMI 2022-07-11 14:30:00 44.27 kg/m2 Sarah ey Seybold - External Oxygen saturation in Arterial blood by Pulse oximetry 2022-07-11 14:30:00 95 /min Jessika Songybo ld - External BP Systolic 2021-11-05 16:38:00 175 mm[Hg] BP Diastolic 2021-11-05 16:38:00 92 mm[Hg] Weight Measured 2021-11-05 16:38:00 345.60 pounds Height Measured 2021-11-05 16:38:00 75.00 inches Body Temperature 2021-11-05 16:38:00 98.40 degrees Heart Rate 2021-11-05 16:38:00 62.00 /min Respiratory Rate 2021-11-05 16:38:00 15.00 /min BP Systolic 2021-10-29 13:39:00 160 mm[Hg] BP Diastolic 2021-10-29 13:39:00 79 mm[Hg] Weight Measured 2021-10-29 13:39:00 344.20 pounds Height Measured 2021-10-29 13:39:00 75.00 inches Body Temperature 2021-10-29 13:39:00 98.00 degrees Heart Rate 2021-10-29 13:39:00 65.00 /min Respiratory Rate 2021-10-29 13:39:00 24.00 /min BP Systolic 2021-08-29 08:05:00 BP Diastolic 2021-08-29 08:05:00 Weight Measured 2021-08-29 08:05:00 340.00 pounds Height Measured 2021-08-29 08:05:00 75.00 inches Body Temperature 2021-08-29 08:05:00 Heart Rate 2021-08-29 08:05:00 Respiratory Rate 2021-08-29 08:05:00 BP Systolic 2021-04-27 09:28:00 142 mm[Hg] BP Diastolic 2021-04-27 09:28:00 90 mm[Hg] Weight Measured 2021-04-27 09:28:00 339.20 pounds Height Measured 2021-04-27 09:28:00 75.00 inches Body Temperature 2021-04-27 09:28:00 97.70 degrees Heart Rate 2021-04-27 09:28:00 73.00 /min Respiratory Rate 2021-04-27 09:28:00 16.00 /min BP Systolic 2021-01-26 11:28:00 151 mm[Hg] BP Diastolic 2021-01-26 11:28:00 77 mm[Hg] Weight Measured 2021-01-26 11:28:00 333.80 pounds Height Measured 2021-01-26 11:28:00 75.00 inches Body Temperature 2021-01-26 11:28:00 98.70 degrees Heart Rate 2021-01-26 11:28:00 68.00 /min Respiratory Rate 2021-01-26 11:28:00 BP Systolic 2020-08-19 09:13:00 145 mm[Hg] BP Diastolic 2020-08-19 09:13:00 84 mm[Hg] Weight Measured 2020-08-19 09:13:00 341.80 pounds Height Measured 2020-08-19 09:13:00 75.00 inches Body Temperature 2020-08-19 09:13:00 97.90 degrees Heart Rate 2020-08-19 09:13:00 79.00 /min Respiratory Rate 2020-08-19 09:13:00 18.00 /min BP Systolic 2020-07-13 11:18:00 175 mm[Hg] BP Diastolic 2020-07-13 11:18:00 97 mm[Hg] Weight Measured 2020-07-13 11:18:00 339.20 pounds Height Measured 2020-07-13 11:18:00 75.00 inches Body Temperature 2020-07-13 11:18:00 98.00 degrees Heart Rate 2020-07-13 11:18:00 76.00 /min Respiratory Rate 2020-07-13 11:18:00 18.00 /min BP Systolic 2020-04-14 08:15:00 141 mm[Hg] BP Diastolic 2020-04-14 08:15:00 89 mm[Hg] Weight Measured 2020-04-14 08:15:00 337.80 pounds Height Measured 2020-04-14 08:15:00 75.00 inches Body Temperature 2020-04-14 08:15:00 98.20 degrees Heart Rate 2020-04-14 08:15:00 73.00 /min Respiratory Rate 2020-04-14 08:15:00 17.00 /min BP Systolic 2019-08-13 16:45:00 154 mm[Hg] BP Diastolic 2019-08-13 16:45:00 91 mm[Hg] Weight Measured 2019-08-13 16:45:00 342.00 pounds Height Measured 2019-08-13 16:45:00 75.00 inches Body Temperature 2019-08-13 16:45:00 97.30 degrees Heart Rate 2019-08-13 16:45:00 74.00 /min Respiratory Rate 2019-08-13 16:45:00 BP Systolic 2019-07-15 11:00:00 136 mm[Hg] BP Diastolic 2019-07-15 11:00:00 88 mm[Hg] Weight Measured 2019-07-15 11:00:00 343.04 pounds Height Measured 2019-07-15 11:00:00 75.00 inches Body Temperature 2019-07-15 11:00:00 98.00 degrees Heart Rate 2019-07-15 11:00:00 73.00 /min Respiratory Rate 2019-07-15 11:00:00 BP Systolic 2019-04-16 11:10:00 137 mm[Hg] BP Diastolic 2019-04-16 11:10:00 84 mm[Hg] Weight Measured 2019-04-16 11:10:00 336.80 pounds Height Measured 2019-04-16 11:10:00 75.00 inches Body Temperature 2019-04-16 11:10:00 97.90 degrees Heart Rate 2019-04-16 11:10:00 69.00 /min Respiratory Rate 2019-04-16 11:10:00 16.00 /min Plan of Care Planned Activity Planned Date Details Comments Source Goal Plan of Care Note [code = 49389-1] Goal Plan of Care Note [code = 65990-0] Goal Plan of Care Note [code = 36738-9] Goal Plan of Care Note [code = 81540-9] Goal Plan of Care Note [code = 57972-5] Goal Plan of Care Note [code = 08059-3] Goal Plan of Care Note [code = 82983-9] Goal Plan of Care Note [code = 21276-4] Goal Plan of Care Note [code = 14274-6] Goal Plan of Care Note [code = 92697-6] Goal Plan of Care Note [code = 95610-0] Goal Plan of Care Note [code = 81731-1] Goal Plan of Care Note [code = 65552-0] Goal Plan of Care Note [code = 16740-5] Goal Plan of Care Note [code = 24745-1] Goal Plan of Care Note [code = 40686-2] Goal Plan of Care Note [code = 39153-1] Goal Plan of Care Note [code = 24812-2] Goal Plan of Care Note [code = 48693-8] Goal Plan of Care Note [code = 02064-1] Goal Plan of Care Note [code = 64404-8] Goal Plan of Care Note [code = 24570-6] Goal Plan of Care Note [code = 00801-0] Goal Plan of Care Note [code = 92948-8] Goal Plan of Care Note [code = 82521-4] Goal Plan of Care Note [code = 78776-6] Goal Plan of Care Note [code = 02863-3] Goal Plan of Care Note [code = 80970-7] Goal Plan of Care Note [code = 92964-1] Goal Plan of Care Note [code = 64352-6] Goal Plan of Care Note [code = 39139-0] Goal Plan of Care Note [code = 28547-6] Goal Plan of Care Note [code = 53256-7] Goal Plan of Care Note [code = 34775-4] Goal Plan of Care Note [code = 25455-6] Goal Plan of Care Note [code = 15126-9] Goal Plan of Care Note [code = 19812-0] Goal Plan of Care Note [code = 46196-4] Goal Plan of Care Note [code = 82705-4] Goal Plan of Care Note [code = 62984-7] Goal Plan of Care Note [code = 39861-8] Goal Plan of Care Note [code = 57940-5] Goal Plan of Care Note [code = 39793-7] Goal Plan of Care Note [code = 41469-1] Goal Plan of Care Note [code = 25013-9] Goal Plan of Care Note [code = 45813-4] Goal Plan of Care Note [code = 73386-3] Goal Plan of Care Note [code = 66495-9] Goal Plan of Care Note [code = 54207-7] Goal Plan of Care Note [code = 23721-7] Goal Plan of Care Note [code = 04361-9] Goal Plan of Care Note [code = 56819-5] Goal Plan of Care Note [code = 17901-4] Goal Plan of Care Note [code = 77291-1] Goal Plan of Care Note [code = 75586-9] Goal Plan of Care Note [code = 39023-0] Goal Plan of Care Note [code = 95675-7] Goal Plan of Care Note [code = 24337-2] Goal Plan of Care Note [code = 84570-2] Goal Plan of Care Note [code = 40242-2] Goal Plan of Care Note [code = 78669-4] Goal Plan of Care Note [code = 35961-2] Goal Plan of Care Note [code = 93824-5] Goal Plan of Care Note [code = 85386-4] Goal Plan of Care Note [code = 74728-5] Goal Plan of Care Note [code = 51881-9] Goal Plan of Care Note [code = 52946-0] Goal Plan of Care Note [code = 65796-7] Goal Plan of Care Note [code = 78706-1] Goal Plan of Care Note [code = 55164-9] Goal Plan of Care Note [code = 63570-1] Goal Plan of Care Note [code = 67225-1] Goal Plan of Care Note [code = 66077-8] Goal Plan of Care Note [code = 31577-5] Goal Plan of Care Note [code = 97845-2] Goal Plan of Care Note [code = 03386-8] Goal Plan of Care Note [code = 80909-3] Goal Plan of Care Note [code = 82046-6] Goal Plan of Care Note [code = 57849-8] Goal Plan of Care Note [code = 44323-9] Goal Plan of Care Note [code = 40076-4] Encounters Start Date/Time End Date/Time Encounter Type Admission Type Attending [facility] Care Department Encounter ID Source 2023-08-22 10:00:00 2023-08-22 10:00:00 Outpatient SID PRINCE [id number] Jessika erika 2023-07-20 15:00:00 2023-07-20 15:00:00 Outpatient ARLIN MIKE [id number] Jessika Georges 2023-06-28 00:00:00 2023-06-28 00:00:00 Outpatient SANDY DEVINE [id number] Jessika Georges 2023-05-30 00:00:00 2023-05-30 00:00:00 Outpatient SID PRINCE [id number] Jessika Georges 2023-04-28 00:00:00 2023-04-28 00:00:00 Outpatient SID PRINCESEY JESSIKA [id number] [facility] 2023-04-26 00:00:00 2023-04-26 00:00:00 Outpatient NIKI SID GEORGE [id number] [facility] 2023-04-26 00:00:00 2023-04-26 00:00:00 Outpatient SANDY DEVINE JESSIKA GEORGE [id number] [facility] 2023-03-28 00:00:00 2023-03-28 00:00:00 Outpatient PALOMA GONZALES [id number] [facility] 2023-03-07 00:00:00 2023-03-07 00:00:00 Outpatient PALOMA GONZALES [id number] [facility] 2023-03-07 00:00:00 2023-03-07 00:00:00 [id number]-21 15:00:00 2023-02-21 15:00:00 Outpatient LIDIA HALE [id number] [facility] 2023-01-29 00:00:00 2023-01-29 00:00:00 Outpatient MALA GREEN [id number] [facility] 2022-12-20 14:15:00 2022-12-20 14:15:00 [facility] [id number] [facility] 2022-12-15 00:00:00 2022-12-15 00:00:00 Outpatient ANKITAida SID GEORGE [id number] [facility] 2022-12-15 00:00:00 2022-12-15 00:00:00 Outpatient MD JESSIKA QUIGLEY [id number] [facility] 2022-12-11 13:30:00 2022-12-11 13:30:00 Outpatient SID PRINCE [id number] [facility] 2022-12-11 10:30:00 2022-12-11 10:30:00 Outpatient BATSHEVA GRIER [id number] [facility] 2022-12-06 08:30:00 2022-12-06 08:30:00 Outpatient HIRAM MACK JESSIKA GEORGE [id number] [facility] 2022-11-29 10:30:00 2022-11-29 10:30:00 Outpatient LIDIA HALE [id number] [facility] 2022-11-24 13:20:00 2022-11-24 13:20:00 Outpatient LOPEZKATHY Burger JESSIKA GEORGE [id number] [facility] 2022-11-23 00:00:00 2022-11-23 00:00:00 Outpatient PALOMA GONZALES [id number] [facility] 2022-11-22 08:05:00 2022-11-22 08:05:00 Outpatient PRATEEK GEORGE [id number] [facility] 2022-11-13 11:00:00 2022-11-13 11:00:00 Outpatient SID PRINCE [id number] [facility] 2022-11-10 13:00:00 2022-11-10 13:00:00 Outpatient LIDIA HALE [id number] [facility] 2022-11-08 16:30:00 2022-11-08 16:30:00 Outpatient LULU VELASCO [id number] [facility] 2022-11-03 00:00:00 2022-11-03 00:00:00 Outpatient PREZASMALA [id number] Jessika [facility] 2022-11-01 00:00:00 2022-11-01 00:00:00 Outpatient HUNDLSID [id number] [facility] 2022-10-30 00:00:00 2022-10-30 00:00:00 Outpatient PREZASMALA [id number] Jessika Sey[facility] 2022-10-24 13:45:00 2022-10-24 13:45:00 Outpatient LIDIA HALE [id number] Jessika Sey[facility] 2022-10-18 14:20:00 2022-10-18 14:20:00 Outpatient AZIZA ALEMAN JESSIKA GEORGE [id number] [facility] 2022-10-13 00:00:00 2022-10-13 00:00:00 Outpatient CHRISTIAN PALOMA JESSIKA GEORGE [id number] [facility] 2022-10-12 00:00:00 2022-10-12 00:00:00 Outpatient MD JESSIKA QUIGLEY [id number] [facility] 2022 00:00:00 2022 00:00:00 Outpatient SANDY DEVINE [id number] [facility] 2022-10-10 13:00:00 2022-10-10 13:00:00 Outpatient SID PRINCE [id number] [facility] 2022-10-10 09:00:00 2022-10-10 09:00:00 Outpatient SID PRINCE [id number] [facility] 2022-10-09 10:15:00 2022-10-09 10:15:00 Outpatient JESSIKA GEORGE [id number] [facility] 2022-09-22 00:00:00 2022-09-22 00:00:00 Outpatient MD JESSIKA QUIGLEY [id number] [facility] 2022-09-21 00:00:00 2022-09-21 00:00:00 Outpatient SANDY DEVINE [id number] [facility] 2022-09-21 00:00:00 2022-09-21 00:00:00 Outpatient JESSIKA GEORGE [id number] [facility] 2022-09-18 13:45:00 2022-09-18 13:45:00 Outpatient DARIUSZ MATTHEWS [id number] [facility] 2022-09-15 12:00:00 2022-09-15 12:00:00 Outpatient JESSIKA GEORGE [id number] [facility] 2022-09-15 00:00:00 2022-09-15 00:00:00 Outpatient GABRIELA SIMPSON JESSIKA GEORGE [id number] Jessika [facility] 2022-09-14 15:00:00 2022-09-14 15:00:00 Outpatient TREMartell7 JESSIKA GEORGE [id number] Jessika [facility] 2022-09-14 13:55:00 2022-09-14 13:55:00 Outpatient NILSONSANDY JESSIKA GEORGE [id number] [facility] 2022-09-14 00:00:00 2022-09-14 00:00:00 Outpatient NILSONSANDY JESSIKA GEORGE [id number] [facility] 2022-09-11 00:00:00 2022-09-11 00:00:00 Outpatient PALOMA GONZALES [id number] [facility] 2022-08-29 00:00:00 2022-08-29 00:00:00 Outpatient PREMALA GOODE [id number] [facility] 2022-08-25 08:50:00 2022-08-25 08:50:00 Outpatient LAB90 JESSIKA GEORGE [id number] [facility] 2022-08-24 00:00:00 2022-08-24 00:00:00 Outpatient DIANE WELSH [id number] [facility] 2022-08-16 11:00:00 2022-08-16 11:00:00 Outpatient SID PRINCE [id number] [facility] 2022-08-10 00:00:00 2022-08-10 00:00:00 Outpatient PALOMA GONZALES [id number] Jessika [facility] 2022-08-07 00:00:00 2022-08-07 00:00:00 Outpatient PREMALA GOODE [id number] Jessika Sey[facility] 2022-08-07 00:00:00 2022-08-07 00:00:00 Outpatient PREMALA GOODE [id number] Jessika Sey[facility] 2022-07-27 11:30:00 2022-07-27 11:30:00 Outpatient PREZAS, MALA JESSIKA GEORGE [id number] Jess[facility] 2022-07-27 10:00:00 2022-07-27 10:00:00 Outpatient DIANE WELSH JESSIKA GEORGE [id number] [facility] 2022-07-13 00:00:00 2022-07-13 00:00:00 Outpatient PALOMA GONZALES JESSIKA GEORGE [id number] Jess[facility] 2022-07-13 00:00:00 2022-07-13 00:00:00 Outpatient PALOMA GONZALES [id number] [facility] 10:25:00 2022-07-11 10:25:00 Outpatient PRATEEK JESSIKA GEORGE [id number] [facility] 2022-07-11 09:30:00 2022-07-11 09:30:00 Outpatient PALOMA GONZALES JESSIKA GEORGE [id number] [facility] 2022-07-05 09:30:00 2022-07-05 09:30:00 Outpatient KIM ARANA JESSIKA GEORGE [id number] [facility] 2022-07-05 09:30:00 2022-07-05 09:30:00 Outpatient PALOMA GONZALES JESSIKA GEORGE [id number] [facility] 2021-12-26 10:36:32 2021-12-26 10:36:32 Outpatient [facility] [id number] Javier [facility] 2021-12-26 00:00:00 2021-12-26 00:00:00 Outpatient Visit [id number] 2021-11-05 00:00:00 2021-11-05 00:00:00 Outpatient Visit [id number]-5 [id number] 2021-10-29 00:00:00 2021-10-29 00:00:00 Outpatient Visit [id number] Results Test Description Test Time Test Comments Results Result Co mments Source CULTURE, ANAEROBIC 2021-11-14 14:23:01 SPECIMEN NUMBER: [id number] CULTURE, ANAEROBIC SPECIMEN NUMBER: [id number] SPECIMEN COMMENT: WOUND L KNEE SOURCE: KNEE REPORT STATUS: FINAL DIRECT GRAM STAIN: NO WBCs SEEN NO BACTERIA SEEN FINAL REPORT: 11/14/2021 NO ANAEROBES RECOVERED AFTER 5 DAYS PRELIMINARY REPORT #2: 11/12/2021 NO ANAEROBES ISOLATED AT 3 DAYS PRELIMINARY ANAEROBE REPORT: 11/11/2021 NO ANAEROBES RECOVERED AFTER 48 HOURS UNLESS OTHERWISE INDICATED, ALL TESTING PERFORMED ATCLINICAL PATHOLOGY [email or web address] [address] [place] [address] BILINGUAL INTERPRETER: YOLETTE GUEVARA M.D. [place] NUMBER [id number] [place]. [id number] CULTURE, [id number] 00:00:00* Test Item Value Reference Range Interpretation Comme nts CULTURE, ANAEROBIC (test code = 39009) SPECIMEN NUMBER: [id number] HEMOGLOBIN [id number] 07:55:48* Test Item Value Reference Range Interpretation Comme [facility] HEMOGLOBIN A1c (test code = 58683) 7.5 % 4.2-5.6 H [employer] GUIDELINES FOR HGB A1C: PREDIABETES/INCREASED RISK . . . . . . . 5.7-6.4% DIAGNOSIS OF DIABETES . . . . . . . . . >=6.5% WITH CONFIRMATION OR APPROPRIATE SYMPTOMS NOTE: ASSAY MAY BE AFFECTED BY HEMOGLOBINOPATHIES (SICKLE CELL ANEMIA, S-C DISEASE, OTHERS) OR ARTIFICIALLY LOWERED BY DECREASED RED CELL SURVIVAL (HEMOLYTIC ANEMIAS, BLOOD LOSS, ETC.). CONSIDER ALTERNATE TESTING OR LABORATORY CONSULTATION. HEMOGLOBIN [id number] 00:00:00* Test Item Value Reference Range Interpretation Comme nts HEMOGLOBIN A1c (test code = 80332) 7.5 % HEMOGLOBIN [id number] 00:00:00* Test Item Value Reference Range Interpretation Comme nts HEMOGLOBIN A1c (test code = 94519) 7.5 % HEMOGLOBIN [id number] 00:00:00* Test Item Value Reference Range Interpretation Comme nts HEMOGLOBIN A1c (test code = 77134) 7.5 % COMPREHENSIVE METABOLIC [id number] 05:02:43* Test Item Value Reference Range Interpretation Comme nts GLUCOSE (test code = 2216) 118 MG/DL 70-99 H BUN (test code = 2207) 13 MG/DL 8-23 CREATININE (test code = 2213) 0.82 MG/DL 0.80-1.40 eGFR (2020 CKD-EPI) (test code = 39387) 100 ML/MIN/1.73 >60 CALC BUN/CREAT (test code = 2234) 16 RATIO 6-28 SODIUM (test code = 2230) 139 MEQ/L 133-146 POTASSIUM (test code = 2227) 3.9 MEQ/L 3.5-5.4 CHLORIDE (test code = 2214) 100 MEQ/L 95-107 CARBON DIOXIDE (test code = 2205) 26 MEQ/L 19-31 CALCIUM (test code = 2208) 10.0 MG/DL 8.5-10.5 PROTEIN, TOTAL (test code = 2228) 7.2 G/DL 6.1-8.3 ALBUMIN (test code = 2200) 4.5 G/DL 3.5-5.2 CALC GLOBULIN (test code = 2240) 2.7 G/DL 1.9-3.7 CALC A/G RATIO (test code = 2233) 1.7 RATIO 1.0-2.6 BILIRUBIN, TOTAL (test code = 2206) 0.5 MG/DL See_Comment [Automated me ssage] The system which generated this result transmitted reference range: <=1.2. The reference range was not used to interpret this result as normal/abnormal. ALKALINE PHOSPHATASE (test code = 2203) 71 U/L 40-123 AST (test code = 8) 26 U/L 9-50 ALT (test code = 2218) 42 U/L 5-50 LIPID [id number] 05:02:43* Test Item Value Reference Range Interpretation Comme nts CHOLESTEROL (test code = 0) 248 MG/DL <200 H TRIGLYCERIDES (test code = 2231) 156 MG/DL <150 H HDL CHOLESTEROL (test code = 2219) 41 MG/DL >39 CALC LDL CHOL (test code = 2237) 177 MG/DL <100 H NOTE: CALCULATED LDL IS BASED ON JOHN-GOLDMAN METHOD WHICHINCLUDES ADJUSTABLE TRIGLYCERIDE:VLDL CHOLESTEROL RATIO.THIS FACTOR VARIES BY MEASURED TRIGLYCERIDE AND NON-HDLCHOLESTEROL CONCENTRATIONS WITH INCREASED CALCULATED LDL SEENIN HIGHER TRIGLYCERIDE OR LOWER NON-HDL SPECIMENS. FOR MOREINFORMATION, SEE CLIENT ANNOUNCEMENT AT [email or web address] RISK RATIO LDL/HDL (test code = 2238) 4.32 RATIO <3.55 H UNLESS OTHERW ISE INDICATED, ALL TESTING PERFORMED [email or web address] [address] [place] [address] BILINGUAL INTERPRETER: YOLETTE GUEVARA M.D. CLIA NUMBER [id number] [facility] [place]. [id number] COMPREHENSIVE METABOLIC [id number] 00:00:00* Test Item Value Reference Range Interpretation Comme nts GLUCOSE (test code = 2217) 118 MG/DL BUN (test code = 2208) 13 MG/DL CREATININE (test code = 2214) 0.82 MG/DL eGFR (2020 CKD-EPI) (test code = 75970) 100 ML/MIN/1.73 CALC BUN/CREAT (test code = 2235) 16 RATIO SODIUM (test code = 2231) 139 MEQ/L POTASSIUM (test code = 2228) 3.9 MEQ/L CHLORIDE (test code = 2215) 100 MEQ/L CARBON DIOXIDE (test code = 2206) 26 MEQ/L CALCIUM (test code = 2209) 10.0 MG/DL PROTEIN, TOTAL (test code = 2229) 7.2 G/DL ALBUMIN (test code = 2201) 4.5 G/DL CALC GLOBULIN (test code = 2240) 2.7 G/DL CALC A/G RATIO (test code = 2234) 1.7 RATIO BILIRUBIN, TOTAL (test code = 2207) 0.5 MG/DL ALKALINE PHOSPHATASE (test code = 2204) 71 U/L AST (test code = 2218) 26 U/L ALT (test code = 2219) 42 U/L COMPREHENSIVE METABOLIC [id number] 00:00:00* Test Item Value Reference Range Interpretation Comme nts GLUCOSE (test code = 2217) 118 MG/DL BUN (test code = 2208) 13 MG/DL CREATININE (test code = 2214) 0.82 MG/DL eGFR (2020 CKD-EPI) (test code = 27702) 100 ML/MIN/1.73 CALC BUN/CREAT (test code = 2235) 16 RATIO SODIUM (test code = 2231) 139 MEQ/L POTASSIUM (test code = 2228) 3.9 MEQ/L CHLORIDE (test code = 2215) 100 MEQ/L CARBON DIOXIDE (test code = 2206) 26 MEQ/L CALCIUM (test code = 2209) 10.0 MG/DL PROTEIN, TOTAL (test code = 2229) 7.2 G/DL ALBUMIN (test code = 2201) 4.5 G/DL CALC GLOBULIN (test code = 2240) 2.7 G/DL CALC A/G RATIO (test code = 2234) 1.7 RATIO BILIRUBIN, TOTAL (test code = 220) 0.5 MG/DL ALKALINE PHOSPHATASE (test code = 2204) 71 U/L AST (test code = 2218) 26 U/L ALT (test code = 2219) 42 U/L LIPID [id number] 00:00:00* Test Item Value Reference Range Interpretation Comme nts CHOLESTEROL (test code = 2210) 248 MG/DL TRIGLYCERIDES (test code = 2232) 156 MG/DL HDL CHOLESTEROL (test code = 2220) 41 MG/DL CALC LDL CHOL (test code = 2237) 177 MG/DL RISK RATIO LDL/HDL (test cod e = 2238) 4.32 RATIO LIPID [id number] 00:00:00* Test Item Value Reference Range Interpretation Comme nts CHOLESTEROL (test code = 2210) 248 MG/DL TRIGLYCERIDES (test code = 2232) 156 MG/DL HDL CHOLESTEROL (test code = 2220) 41 MG/DL CALC LDL CHOL (test code = 2237) 177 MG/DL RISK RATIO LDL/HDL (test cod e = 2238) 4.32 RATIO LIPID [id number] 03:48:15* Test Item Value Reference Range Interpretation Comme nts CHOLESTEROL (test code = 2210) 246 MG/DL <200 H TRIGLYCERIDES (test code = 2232) 118 MG/DL <150 HDL CHOLESTEROL (test code = 2220) 35 MG/DL >39 L CALC LDL CHOL (test code = 2237) 186 MG/DL <100 H NOTE: CALCULATED LDL IS BASED ON JOHN-GOLDMAN METHOD WHICHINCLUDES ADJUSTABLE TRIGLYCERIDE:VLDL CHOLESTEROL RATIO.THIS FACTOR VARIES BY MEASURED TRIGLYCERIDE AND NON-HDLCHOLESTEROL CONCENTRATIONS WITH INCREASED CALCULATED LDL SEENIN HIGHER TRIGLYCERIDE OR LOWER NON-HDL SPECIMENS. FOR MOREINFORMATION, SEE CLIENT ANNOUNCEMENT AT [email or web address] RISK RATIO LDL/HDL (test code = 2237) 5.31 RATIO <3.55 H COMPREHENSIVE METABOLIC [id number] 03:48:15* Test Item Value Reference Range Interpretation Comme nts GLUCOSE (test code = 2216) 132 MG/DL 70-99 H BUN (test code = 2207) 9 MG/DL 8-23 CREATININE (test code = 2213) 0.74 MG/DL 0.80-1.40 L eGFR (2020 CKD-EPI) (test code = 89903) 104 ML/MIN/1.73 >60 CALC BUN/CREAT (test code = 2235) 12 RATIO 6-28 SODIUM (test code = 2230) 140 MEQ/L 133-146 POTASSIUM (test code = 2228) 3.9 MEQ/L 3.5-5.4 CHLORIDE (test code = 2215) 100 MEQ/L 95-107 CARBON DIOXIDE (test code = 2206) 28 MEQ/L 19-31 CALCIUM (test code = 2209) 9.8 MG/DL 8.5-10.5 PROTEIN, TOTAL (test code = 222) 7.2 G/DL 6.1-8.3 ALBUMIN (test code = 2200) 4.4 G/DL 3.5-5.2 CALC GLOBULIN (test code = 2240) 2.8 G/DL 1.9-3.7 CALC A/G RATIO (test code = 223) 1.6 RATIO 1.0-2.6 BILIRUBIN, TOTAL (test code = 2206) 0.7 MG/DL See_Comment [Automated me ssage] The system which generated this result transmitted reference range: <=1.2. The reference range was not used to interpret this result as normal/abnormal. ALKALINE PHOSPHATASE (test code = 4) 72 U/L 40-123 AST (test code = 2218) 25 U/L 9-50 ALT (test code = 2219) 39 U/L 5-50 UNLESS OTHERWISE INDICATED, ALL TESTING PERFORMED [facility] [address] [place] [address] BILINGUAL INTERPRETER: YOLETTE GUEVARA M.D. IA NUMBER [id number] [facility] [place]. [id number] HEMOGLOBIN [id number] 03:27:52* Test Item Value Reference Range Interpretation Comme nts HEMOGLOBIN A1c (test code = 56777) 7.7 % 4.2-5.6 H [employer] GUIDELINES FOR HGB A1C: PREDIABETES/INCREASED RISK . . . . . . . 5.7-6.4% DIAGNOSIS OF DIABETES . . . . . . . . . >=6.5% WITH CONFIRMATION OR APPROPRIATE SYMPTOMS NOTE: ASSAY MAY BE AFFECTED BY HEMOGLOBINOPATHIES (SICKLE CELL ANEMIA, S-C DISEASE, OTHERS) OR ARTIFICIALLY LOWERED BY DECREASED RED CELL SURVIVAL (HEMOLYTIC ANEMIAS, BLOOD LOSS, ETC.). CONSIDER ALTERNATE TESTING OR LABORATORY CONSULTATION. LIPID [id number] 00:00:00* Test Item Value Reference Range Interpretation Comme nts CHOLESTEROL (test code = 2210) 246 MG/DL TRIGLYCERIDES (test code = 2232) 118 MG/DL HDL CHOLESTEROL (test code = 2220) 35 MG/DL CALC LDL CHOL (test code = 2237) 186 MG/DL RISK RATIO LDL/HDL (test cod e = 2238) 5.31 RATIO HEMOGLOBIN [id number] 00:00:00* Test Item Value Reference Range Interpretation Comme nts HEMOGLOBIN A1c (test code = 76312) 7.7 % HEMOGLOBIN [id number] 00:00:00* Test Item Value Reference Range Interpretation Comme nts HEMOGLOBIN A1c (test code = 89328) 7.7 % COMPREHENSIVE METABOLIC [id number] 00:00:00* Test Item Value Reference Range Interpretation Comme nts GLUCOSE (test code = 2217) 132 MG/DL BUN (test code = 2208) 9 MG/DL CREATININE (test code = 2214) 0.74 MG/DL eGFR (2020 CKD-EPI) (test code = 52081) 104 ML/MIN/1.73 CALC BUN/CREAT (test code = 2235) 12 RATIO SODIUM (test code = 2231) 140 MEQ/L POTASSIUM (test code = 2228) 3.9 MEQ/L CHLORIDE (test code = 2215) 100 MEQ/L CARBON DIOXIDE (test code = 2206) 28 MEQ/L CALCIUM (test code = 2209) 9.8 MG/DL PROTEIN, TOTAL (test code = 2229) 7.2 G/DL ALBUMIN (test code = 2201) 4.4 G/DL CALC GLOBULIN (test code = 2240) 2.8 G/DL CALC A/G RATIO (test code = 2234) 1.6 RATIO BILIRUBIN, TOTAL (test code = 2207) 0.7 MG/DL ALKALINE PHOSPHATASE (test code = 2204) 72 U/L AST (test code = 2218) 25 U/L ALT (test code = 2219) 39 U/L LIPID [id number] 00:00:00* Test Item Value Reference Range Interpretation Comme nts CHOLESTEROL (test code = 2210) 246 MG/DL TRIGLYCERIDES (test code = 2232) 118 MG/DL HDL CHOLESTEROL (test code = 2220) 35 MG/DL CALC LDL CHOL (test code = 2237) 186 MG/DL RISK RATIO LDL/HDL (test cod e = 2238) 5.31 RATIO LIPID [id number] 00:00:00* Test Item Value Reference Range Interpretation Comme nts CHOLESTEROL (test code = 2210) 246 MG/DL TRIGLYCERIDES (test code = 2232) 118 MG/DL HDL CHOLESTEROL (test code = 2220) 35 MG/DL CALC LDL CHOL (test code = 2237) 186 MG/DL RISK RATIO LDL/HDL (test cod e = 2238) 5.31 RATIO HEMOGLOBIN [id number] 00:00:00* Test Item Value Reference Range Interpretation Comme nts HEMOGLOBIN A1c (test code = 74154) 7.7 % HEMOGLOBIN [id number] 00:00:00* Test Item Value Reference Range Interpretation Comme nts HEMOGLOBIN A1c (test code = 73540) 7.7 % HEMOGLOBIN [id number] 00:00:00* Test Item Value Reference Range Interpretation Comme nts HEMOGLOBIN A1c (test code = 40677) 7.7 % COMPREHENSIVE METABOLIC [id number] 00:00:00* Test Item Value Reference Range Interpretation Comme nts GLUCOSE (test code = 7) 132 MG/DL BUN (test code = 8) 9 MG/DL CREATININE (test code = 2214) 0.74 MG/DL eGFR (2020 CKD-EPI) (test code = 15769) 104 ML/MIN/1.73 CALC BUN/CREAT (test code = 2235) 12 RATIO SODIUM (test code = 2231) 140 MEQ/L POTASSIUM (test code = 2228) 3.9 MEQ/L CHLORIDE (test code = 2215) 100 MEQ/L CARBON DIOXIDE (test code = 2206) 28 MEQ/L CALCIUM (test code = 2209) 9.8 MG/DL PROTEIN, TOTAL (test code = 2229) 7.2 G/DL ALBUMIN (test code = 2201) 4.4 G/DL CALC GLOBULIN (test code = 2240) 2.8 G/DL CALC A/G RATIO (test code = 2234) 1.6 RATIO BILIRUBIN, TOTAL (test code = 2207) 0.7 MG/DL ALKALINE PHOSPHATASE (test code = 2204) 72 U/L AST (test code = 2218) 25 U/L ALT (test code = 2219) 39 U/L COMPREHENSIVE METABOLIC [id number] 00:00:00* Test Item Value Reference Range Interpretation Comme nts GLUCOSE (test code = 2217) 132 MG/DL BUN (test code = 2208) 9 MG/DL CREATININE (test code = 2214) 0.74 MG/DL eGFR (2020 CKD-EPI) (test code = 85571) 104 ML/MIN/1.73 CALC BUN/CREAT (test code = 2235) 12 RATIO SODIUM (test code = 2231) 140 MEQ/L POTASSIUM (test code = 2228) 3.9 MEQ/L CHLORIDE (test code = 2215) 100 MEQ/L CARBON DIOXIDE (test code = 2206) 28 MEQ/L CALCIUM (test code = 2209) 9.8 MG/DL PROTEIN, TOTAL (test code = 2229) 7.2 G/DL ALBUMIN (test code = 2201) 4.4 G/DL CALC GLOBULIN (test code = 2240) 2.8 G/DL CALC A/G RATIO (test code = 2234) 1.6 RATIO BILIRUBIN, TOTAL (test code = 2207) 0.7 MG/DL ALKALINE PHOSPHATASE (test code = 2204) 72 U/L AST (test code = 2218) 25 U/L ALT (test code = 2219) 39 U/L LIPID [id number] 00:00:00* Test Item Value Reference Range Interpretation Comme nts CHOLESTEROL (test code = 2210) 246 MG/DL TRIGLYCERIDES (test code = 2232) 118 MG/DL HDL CHOLESTEROL (test code = 2220) 35 MG/DL CALC LDL CHOL (test code = 2237) 186 MG/DL RISK RATIO LDL/HDL (test cod e = 2238) 5.31 RATIO LIPID [id number] 00:00:00* Test Item Value Reference Range Interpretation Comme nts CHOLESTEROL (test code = 2210) 246 MG/DL TRIGLYCERIDES (test code = 2232) 118 MG/DL HDL CHOLESTEROL (test code = 2220) 35 MG/DL CALC LDL CHOL (test code = 2237) 186 MG/DL RISK RATIO LDL/HDL (test cod e = 2238) 5.31 RATIO HEMOGLOBIN [id number] 00:00:00* Test Item Value Reference Range Interpretation Comme nts HEMOGLOBIN A1c (test code = 10814) 7.7 % HEMOGLOBIN [id number] 00:00:00* Test Item Value Reference Range Interpretation Comme nts HEMOGLOBIN A1c (test code = 25148) 7.7 % HEMOGLOBIN [id number] 00:00:00* Test Item Value Reference Range Interpretation Comme nts HEMOGLOBIN A1c (test code = 16394) 7.7 % COMPREHENSIVE METABOLIC [id number] 00:00:00* Test Item Value Reference Range Interpretation Comme nts GLUCOSE (test code = 2217) 132 MG/DL BUN (test code = 2208) 9 MG/DL CREATININE (test code = 2214) 0.74 MG/DL eGFR (2020 CKD-EPI) (test code = 16953) 104 ML/MIN/1.73 CALC BUN/CREAT (test code = 2235) 12 RATIO SODIUM (test code = 2231) 140 MEQ/L POTASSIUM (test code = 2228) 3.9 MEQ/L CHLORIDE (test code = 2215) 100 MEQ/L CARBON DIOXIDE (test code = 2206) 28 MEQ/L CALCIUM (test code = 2209) 9.8 MG/DL PROTEIN, TOTAL (test code = 2229) 7.2 G/DL ALBUMIN (test code = 2201) 4.4 G/DL CALC GLOBULIN (test code = 2240) 2.8 G/DL CALC A/G RATIO (test code = 2234) 1.6 RATIO BILIRUBIN, TOTAL (test code = 2207) 0.7 MG/DL ALKALINE PHOSPHATASE (test code = 2204) 72 U/L AST (test code = 2218) 25 U/L ALT (test code = 2219) 39 U/L COMPREHENSIVE METABOLIC [id number] 00:00:00* Test Item Value Reference Range Interpretation Comme nts GLUCOSE (test code = 2217) 132 MG/DL BUN (test code = 2208) 9 MG/DL CREATININE (test code = 2214) 0.74 MG/DL eGFR (2020 CKD-EPI) (test code = 45570) 104 ML/MIN/1.73 CALC BUN/CREAT (test code = 2235) 12 RATIO SODIUM (test code = 2231) 140 MEQ/L POTASSIUM (test code = 2228) 3.9 MEQ/L CHLORIDE (test code = 2215) 100 MEQ/L CARBON DIOXIDE (test code = 2206) 28 MEQ/L CALCIUM (test code = 2209) 9.8 MG/DL PROTEIN, TOTAL (test code = 2229) 7.2 G/DL ALBUMIN (test code = 2201) 4.4 G/DL CALC GLOBULIN (test code = 2240) 2.8 G/DL CALC A/G RATIO (test code = 2234) 1.6 RATIO BILIRUBIN, TOTAL (test code = 2207) 0.7 MG/DL ALKALINE PHOSPHATASE (test code = 2204) 72 U/L AST (test code = 2218) 25 U/L ALT (test code = 2219) 39 U/L HEMOGLOBIN [id number] 00:00:00* Test Item Value Reference Range Interpretation Comme nts HEMOGLOBIN A1c (test code = 26095) 7.2 % HEMOGLOBIN [id number] 00:00:00* Test Item Value Reference Range Interpretation Comme nts HEMOGLOBIN A1c (test code = 68556) 7.2 % LIPID [id number] 00:00:00* Test Item Value Reference Range Interpretation Comme nts CHOLESTEROL (test code = 2210) 234 MG/DL TRIGLYCERIDES (test code = 2232) 130 MG/DL HDL CHOLESTEROL (test code = 2220) 39 MG/DL CALC LDL CHOL (test code = 2237) 168 MG/DL RISK RATIO LDL/HDL (test cod e = 2238) 4.31 RATIO COMPREHENSIVE METABOLIC [id number] 00:00:00* Test Item Value Reference Range Interpretation Comme nts GLUCOSE (test code = 2217) 152 MG/DL BUN (test code = 2208) 11 MG/DL CREATININE (test code = 2214) 0.72 MG/DL eGFR AMER. (test cod e = ) 118 ML/MIN/1.73 eGFR NON- AMER. (test code = 98615) 102 ML/MIN/1.73 CALC BUN/CREAT (test code = 2235) 15 RATIO SODIUM (test code = 2231) 136 MEQ/L POTASSIUM (test code = 2228) 4.5 MEQ/L CHLORIDE (test code = 2215) 99 MEQ/L CARBON DIOXIDE (test code = 2206) 26 MEQ/L CALCIUM (test code = 2209) 9.5 MG/DL PROTEIN, TOTAL (test code = 2229) 6.9 G/DL ALBUMIN (test code = 2201) 4.5 G/DL CALC GLOBULIN (test code = 2240) 2.4 G/DL CALC A/G RATIO (test code = 2234) 1.9 RATIO BILIRUBIN, TOTAL (test code = 2207) 0.5 MG/DL ALKALINE PHOSPHATASE (test code = 2204) 70 U/L AST (test code = 2218) 36 U/L ALT (test code = 2219) 65 U/L HEMOGLOBIN [id number] 00:00:00* Test Item Value Reference Range Interpretation Comme nts HEMOGLOBIN A1c (test code = 09211) 7.2 % HEMOGLOBIN [id number] 00:00:00* Test Item Value Reference Range Interpretation Comme nts HEMOGLOBIN A1c (test code = 74322) 7.2 % HEMOGLOBIN [id number] 00:00:00* Test Item Value Reference Range Interpretation Comme nts HEMOGLOBIN A1c (test code = 88284) 7.2 % LIPID [id number] 00:00:00* Test Item Value Reference Range Interpretation Comme nts CHOLESTEROL (test code = 2210) 234 MG/DL TRIGLYCERIDES (test code = 2232) 130 MG/DL HDL CHOLESTEROL (test code = 2220) 39 MG/DL CALC LDL CHOL (test code = 2237) 168 MG/DL RISK RATIO LDL/HDL (test cod e = 2238) 4.31 RATIO LIPID [id number] 00:00:00* Test Item Value Reference Range Interpretation Comme nts CHOLESTEROL (test code = 2210) 234 MG/DL TRIGLYCERIDES (test code = 2232) 130 MG/DL HDL CHOLESTEROL (test code = 2220) 39 MG/DL CALC LDL CHOL (test code = 2237) 168 MG/DL RISK RATIO LDL/HDL (test cod e = 2238) 4.31 RATIO COMPREHENSIVE METABOLIC [id number] 00:00:00* Test Item Value Reference Range Interpretation Comme nts GLUCOSE (test code = 2217) 152 MG/DL BUN (test code = 2208) 11 MG/DL CREATININE (test code = 2214) 0.72 MG/DL eGFR AMER. (test cod e = 49684) 118 ML/MIN/1.73 eGFR NON- AMER. (test code = 61777) 102 ML/MIN/1.73 CALC BUN/CREAT (test code = 2235) 15 RATIO SODIUM (test code = 2231) 136 MEQ/L POTASSIUM (test code = 2228) 4.5 MEQ/L CHLORIDE (test code = 2215) 99 MEQ/L CARBON DIOXIDE (test code = 2206) 26 MEQ/L CALCIUM (test code = 2209) 9.5 MG/DL PROTEIN, TOTAL (test code = 2229) 6.9 G/DL ALBUMIN (test code = 2201) 4.5 G/DL CALC GLOBULIN (test code = 2240) 2.4 G/DL CALC A/G RATIO (test code = 2234) 1.9 RATIO BILIRUBIN, TOTAL (test code = 2207) 0.5 MG/DL ALKALINE PHOSPHATASE (test code = 2204) 70 U/L AST (test code = 2218) 36 U/L ALT (test code = 2219) 65 U/L COMPREHENSIVE METABOLIC [id number] 00:00:00* Test Item Value Reference Range Interpretation Comme nts GLUCOSE (test code = 2217) 152 MG/DL BUN (test code = 2208) 11 MG/DL CREATININE (test code = 2214) 0.72 MG/DL eGFR AMER. (test cod e = 24756) 118 ML/MIN/1.73 eGFR NON- AMER. (test code = 79844) 102 ML/MIN/1.73 CALC BUN/CREAT (test code = 2235) 15 RATIO SODIUM (test code = 2231) 136 MEQ/L POTASSIUM (test code = 2228) 4.5 MEQ/L CHLORIDE (test code = 2215) 99 MEQ/L CARBON DIOXIDE (test code = 2206) 26 MEQ/L CALCIUM (test code = 2209) 9.5 MG/DL PROTEIN, TOTAL (test code = 2229) 6.9 G/DL ALBUMIN (test code = 2201) 4.5 G/DL CALC GLOBULIN (test code = 2240) 2.4 G/DL CALC A/G RATIO (test code = 2234) 1.9 RATIO BILIRUBIN, TOTAL (test code = 2207) 0.5 MG/DL ALKALINE PHOSPHATASE (test code = 2204) 70 U/L AST (test code = 221) 36 U/L ALT (test code = 2219) 65 U/L HEMOGLOBIN [id number] 00:00:00* Test Item Value Reference Range Interpretation Comme nts HEMOGLOBIN A1c (test code = 92740) 7.2 % HEMOGLOBIN [id number] 00:00:00* Test Item Value Reference Range Interpretation Comme nts HEMOGLOBIN A1c (test code = 24653) 7.2 % HEMOGLOBIN [id number] 00:00:00* Test Item Value Reference Range Interpretation Comme nts HEMOGLOBIN A1c (test code = 40846) 7.2 % LIPID [id number] 00:00:00* Test Item Value Reference Range Interpretation Comme nts CHOLESTEROL (test code = 2210) 234 MG/DL TRIGLYCERIDES (test code = 2232) 130 MG/DL HDL CHOLESTEROL (test code = 2220) 39 MG/DL CALC LDL CHOL (test code = 2237) 168 MG/DL RISK RATIO LDL/HDL (test cod e = 2238) 4.31 RATIO LIPID [id number] 00:00:00* Test Item Value Reference Range Interpretation Comme nts CHOLESTEROL (test code = 2210) 234 MG/DL TRIGLYCERIDES (test code = 2232) 130 MG/DL HDL CHOLESTEROL (test code = 2220) 39 MG/DL CALC LDL CHOL (test code = 2237) 168 MG/DL RISK RATIO LDL/HDL (test cod e = 2238) 4.31 RATIO COMPREHENSIVE METABOLIC [id number] 00:00:00* Test Item Value Reference Range Interpretation Comme nts GLUCOSE (test code = 2217) 152 MG/DL BUN (test code = 2208) 11 MG/DL CREATININE (test code = 2214) 0.72 MG/DL eGFR AMER. (test cod e = 01829) 118 ML/MIN/1.73 eGFR NON- AMER. (test code = 60211) 102 ML/MIN/1.73 CALC BUN/CREAT (test code = 2235) 15 RATIO SODIUM (test code = 2231) 136 MEQ/L POTASSIUM (test code = 2228) 4.5 MEQ/L CHLORIDE (test code = 2215) 99 MEQ/L CARBON DIOXIDE (test code = 2206) 26 MEQ/L CALCIUM (test code = 2209) 9.5 MG/DL PROTEIN, TOTAL (test code = 2229) 6.9 G/DL ALBUMIN (test code = 2201) 4.5 G/DL CALC GLOBULIN (test code = 2240) 2.4 G/DL CALC A/G RATIO (test code = 2234) 1.9 RATIO BILIRUBIN, TOTAL (test code = 2207) 0.5 MG/DL ALKALINE PHOSPHATASE (test code = 2204) 70 U/L AST (test code = 2218) 36 U/L ALT (test code = 2219) 65 U/L COMPREHENSIVE METABOLIC [id number] 00:00:00* Test Item Value Reference Range Interpretation Comme nts GLUCOSE (test code = 2217) 152 MG/DL BUN (test code = 2208) 11 MG/DL CREATININE (test code = 2214) 0.72 MG/DL eGFR AMER. (test cod e = 89737) 118 ML/MIN/1.73 eGFR NON- AMER. (test code = 24233) 102 ML/MIN/1.73 CALC BUN/CREAT (test code = 2235) 15 RATIO SODIUM (test code = 2231) 136 MEQ/L POTASSIUM (test code = 2228) 4.5 MEQ/L CHLORIDE (test code = 2215) 99 MEQ/L CARBON DIOXIDE (test code = 2206) 26 MEQ/L CALCIUM (test code = 2209) 9.5 MG/DL PROTEIN, TOTAL (test code = 2229) 6.9 G/DL ALBUMIN (test code = 2201) 4.5 G/DL CALC GLOBULIN (test code = 2240) 2.4 G/DL CALC A/G RATIO (test code = 2234) 1.9 RATIO BILIRUBIN, TOTAL (test code = 2207) 0.5 MG/DL ALKALINE PHOSPHATASE (test code = 2204) 70 U/L AST (test code = 2218) 36 U/L ALT (test code = 2219) 65 U/L HEMOGLOBIN [id number] 00:00:00* Test Item Value Reference Range Interpretation Comme nts HEMOGLOBIN A1c (test code = 86258) 7.0 % HEMOGLOBIN [id number] 00:00:00* Test Item Value Reference Range Interpretation Comme nts HEMOGLOBIN A1c (test code = 74671) 7.0 % LIPID [id number] 00:00:00* Test Item Value Reference Range Interpretation Comme nts CHOLESTEROL (test code = 2210) 228 MG/DL TRIGLYCERIDES (test code = 2232) 172 MG/DL HDL CHOLESTEROL (test code = 2220) 34 MG/DL CALC LDL CHOL (test code = 2237) 162 MG/DL RISK RATIO LDL/HDL (test cod e = 2238) 4.76 RATIO COMPREHENSIVE METABOLIC [id number] 00:00:00* Test Item Value Reference Range Interpretation Comme nts GLUCOSE (test code = 2217) 162 MG/DL BUN (test code = 2208) 16 MG/DL CREATININE (test code = 2214) 0.81 MG/DL eGFR AMER. (test cod e = 31906) 113 ML/MIN/1.73 eGFR NON- AMER. (test code = 80528) 97 ML/MIN/1.73 CALC BUN/CREAT (test code = 2235) 20 RATIO SODIUM (test code = 2231) 137 MEQ/L POTASSIUM (test code = 2228) 4.5 MEQ/L CHLORIDE (test code = 2215) 99 MEQ/L CARBON DIOXIDE (test code = 2206) 27 MEQ/L CALCIUM (test code = 2209) 9.7 MG/DL PROTEIN, TOTAL (test code = 2229) 7.3 G/DL ALBUMIN (test code = 2201) 4.4 G/DL CALC GLOBULIN (test code = 2240) 2.9 G/DL CALC A/G RATIO (test code = 2234) 1.5 RATIO BILIRUBIN, TOTAL (test code = 2207) 0.6 MG/DL ALKALINE PHOSPHATASE (test code = 2204) 67 U/L AST (test code = 2218) 32 U/L ALT (test code = 2219) 53 U/L HEMOGLOBIN [id number] 00:00:00* Test Item Value Reference Range Interpretation Comme nts HEMOGLOBIN A1c (test code = 44026) 7.0 % HEMOGLOBIN [id number] 00:00:00* Test Item Value Reference Range Interpretation Comme nts HEMOGLOBIN A1c (test code = 29263) 7.0 % HEMOGLOBIN [id number] 00:00:00* Test Item Value Reference Range Interpretation Comme nts HEMOGLOBIN A1c (test code = 82833) 7.0 % LIPID [id number] 00:00:00* Test Item Value Reference Range Interpretation Comme nts CHOLESTEROL (test code = 2210) 228 MG/DL TRIGLYCERIDES (test code = 2232) 172 MG/DL HDL CHOLESTEROL (test code = 2220) 34 MG/DL CALC LDL CHOL (test code = 2237) 162 MG/DL RISK RATIO LDL/HDL (test cod e = 2238) 4.76 RATIO LIPID [id number] 00:00:00* Test Item Value Reference Range Interpretation Comme nts CHOLESTEROL (test code = 2210) 228 MG/DL TRIGLYCERIDES (test code = 2232) 172 MG/DL HDL CHOLESTEROL (test code = 2220) 34 MG/DL CALC LDL CHOL (test code = 2237) 162 MG/DL RISK RATIO LDL/HDL (test cod e = 2238) 4.76 RATIO COMPREHENSIVE METABOLIC [id number] 00:00:00* Test Item Value Reference Range Interpretation Comme nts GLUCOSE (test code = 2217) 162 MG/DL BUN (test code = 2208) 16 MG/DL CREATININE (test code = 2214) 0.81 MG/DL eGFR AMER. (test cod e = 79663) 113 ML/MIN/1.73 eGFR NON- AMER. (test code = 33737) 97 ML/MIN/1.73 CALC BUN/CREAT (test code = 2235) 20 RATIO SODIUM (test code = 2231) 137 MEQ/L POTASSIUM (test code = 2228) 4.5 MEQ/L CHLORIDE (test code = 2215) 99 MEQ/L CARBON DIOXIDE (test code = 2206) 27 MEQ/L CALCIUM (test code = 2209) 9.7 MG/DL PROTEIN, TOTAL (test code = 2229) 7.3 G/DL ALBUMIN (test code = 2201) 4.4 G/DL CALC GLOBULIN (test code = 2240) 2.9 G/DL CALC A/G RATIO (test code = 2234) 1.5 RATIO BILIRUBIN, TOTAL (test code = 2207) 0.6 MG/DL ALKALINE PHOSPHATASE (test code = 2204) 67 U/L AST (test code = 2218) 32 U/L ALT (test code = 2219) 53 U/L COMPREHENSIVE METABOLIC [id number] 00:00:00* Test Item Value Reference Range Interpretation Comme nts GLUCOSE (test code = 2217) 162 MG/DL BUN (test code = 2208) 16 MG/DL CREATININE (test code = 2214) 0.81 MG/DL eGFR AMER. (test cod e = 53972) 113 ML/MIN/1.73 eGFR NON- AMER. (test code = 48181) 97 ML/MIN/1.73 CALC BUN/CREAT (test code = 2235) 20 RATIO SODIUM (test code = 2231) 137 MEQ/L POTASSIUM (test code = 2228) 4.5 MEQ/L CHLORIDE (test code = 2215) 99 MEQ/L CARBON DIOXIDE (test code = 2206) 27 MEQ/L CALCIUM (test code = 2209) 9.7 MG/DL PROTEIN, TOTAL (test code = 2229) 7.3 G/DL ALBUMIN (test code = 2201) 4.4 G/DL CALC GLOBULIN (test code = 2240) 2.9 G/DL CALC A/G RATIO (test code = 2234) 1.5 RATIO BILIRUBIN, TOTAL (test code = 2207) 0.6 MG/DL ALKALINE PHOSPHATASE (test code = 2204) 67 U/L AST (test code = 2218) 32 U/L ALT (test code = 2219) 53 U/L HEMOGLOBIN [id number] 00:00:00* Test Item Value Reference Range Interpretation Comme nts HEMOGLOBIN A1c (test code = 00605) 7.0 % HEMOGLOBIN [id number] 00:00:00* Test Item Value Reference Range Interpretation Comme nts HEMOGLOBIN A1c (test code = 19692) 7.0 % HEMOGLOBIN [id number] 00:00:00* Test Item Value Reference Range Interpretation Comme nts HEMOGLOBIN A1c (test code = 48423) 7.0 % LIPID [id number] 00:00:00* Test Item Value Reference Range Interpretation Comme nts CHOLESTEROL (test code = 2210) 228 MG/DL TRIGLYCERIDES (test code = 2232) 172 MG/DL HDL CHOLESTEROL (test code = 2220) 34 MG/DL CALC LDL CHOL (test code = 2237) 162 MG/DL RISK RATIO LDL/HDL (test cod e = 2238) 4.76 RATIO LIPID [id number] 00:00:00* Test Item Value Reference Range Interpretation Comme nts CHOLESTEROL (test code = 2210) 228 MG/DL TRIGLYCERIDES (test code = 2232) 172 MG/DL HDL CHOLESTEROL (test code = 2220) 34 MG/DL CALC LDL CHOL (test code = 2237) 162 MG/DL RISK RATIO LDL/HDL (test cod e = 2238) 4.76 RATIO COMPREHENSIVE METABOLIC [id number] 00:00:00* Test Item Value Reference Range Interpretation Comme nts GLUCOSE (test code = 2217) 162 MG/DL BUN (test code = 2208) 16 MG/DL CREATININE (test code = 2214) 0.81 MG/DL eGFR AMER. (test cod e = 82082) 113 ML/MIN/1.73 eGFR NON- AMER. (test code = 56980) 97 ML/MIN/1.73 CALC BUN/CREAT (test code = 2235) 20 RATIO SODIUM (test code = 2231) 137 MEQ/L POTASSIUM (test code = 2228) 4.5 MEQ/L CHLORIDE (test code = 2215) 99 MEQ/L CARBON DIOXIDE (test code = 2206) 27 MEQ/L CALCIUM (test code = 2209) 9.7 MG/DL PROTEIN, TOTAL (test code = 2229) 7.3 G/DL ALBUMIN (test code = 2201) 4.4 G/DL CALC GLOBULIN (test code = 2240) 2.9 G/DL CALC A/G RATIO (test code = 2234) 1.5 RATIO BILIRUBIN, TOTAL (test code = 2207) 0.6 MG/DL ALKALINE PHOSPHATASE (test code = 2204) 67 U/L AST (test code = 2218) 32 U/L ALT (test code = 2219) 53 U/L COMPREHENSIVE METABOLIC [id number] 00:00:00* Test Item Value Reference Range Interpretation Comme nts GLUCOSE (test code = 2217) 162 MG/DL BUN (test code = 2208) 16 MG/DL CREATININE (test code = 2214) 0.81 MG/DL eGFR AMER. (test cod e = 40117) 113 ML/MIN/1.73 eGFR NON- AMER. (test code = 04294) 97 ML/MIN/1.73 CALC BUN/CREAT (test code = 2235) 20 RATIO SODIUM (test code = 2231) 137 MEQ/L POTASSIUM (test code = 2228) 4.5 MEQ/L CHLORIDE (test code = 2215) 99 MEQ/L CARBON DIOXIDE (test code = 2206) 27 MEQ/L CALCIUM (test code = 2209) 9.7 MG/DL PROTEIN, TOTAL (test code = 2229) 7.3 G/DL ALBUMIN (test code = 2201) 4.4 G/DL CALC GLOBULIN (test code = 2240) 2.9 G/DL CALC A/G RATIO (test code = 2234) 1.5 RATIO BILIRUBIN, TOTAL (test code = 2207) 0.6 MG/DL ALKALINE PHOSPHATASE (test code = 2204) 67 U/L AST (test code = 2218) 32 U/L ALT (test code = 2219) 53 U/L LIPID [id number] 00:00:00* Test Item Value Reference Range Interpretation Comme nts CHOLESTEROL (test code = 2210) 243 MG/DL TRIGLYCERIDES (test code = 2232) 133 MG/DL HDL CHOLESTEROL (test code = 2220) 44 MG/DL CALC LDL CHOL (test code = 2237) 172 MG/DL RISK RATIO LDL/HDL (test cod e = 2238) 3.91 RATIO HEMOGLOBIN [id number] 00:00:00* Test Item Value Reference Range Interpretation Comme nts HEMOGLOBIN A1c (test code = 72828) 6.8 % HEMOGLOBIN [id number] 00:00:00* Test Item Value Reference Range Interpretation Comme nts HEMOGLOBIN A1c (test code = 84674) 6.8 % LIPID [id number] 00:00:00* Test Item Value Reference Range Interpretation Comme nts CHOLESTEROL (test code = 2210) 243 MG/DL TRIGLYCERIDES (test code = 2232) 133 MG/DL HDL CHOLESTEROL (test code = 2220) 44 MG/DL CALC LDL CHOL (test code = 2237) 172 MG/DL RISK RATIO LDL/HDL (test cod e = 2238) 3.91 RATIO LIPID [id number] 00:00:00* Test Item Value Reference Range Interpretation Comme nts CHOLESTEROL (test code = 2210) 243 MG/DL TRIGLYCERIDES (test code = 2232) 133 MG/DL HDL CHOLESTEROL (test code = 2220) 44 MG/DL CALC LDL CHOL (test code = 2237) 172 MG/DL RISK RATIO LDL/HDL (test cod e = 2238) 3.91 RATIO HEMOGLOBIN [id number] 00:00:00* Test Item Value Reference Range Interpretation Comme nts HEMOGLOBIN A1c (test code = 76276) 6.8 % HEMOGLOBIN [id number] 00:00:00* Test Item Value Reference Range Interpretation Comme nts HEMOGLOBIN A1c (test code = 48976) 6.8 % HEMOGLOBIN [id number] 00:00:00* Test Item Value Reference Range Interpretation Comme nts HEMOGLOBIN A1c (test code = 07111) 6.8 % LIPID [id number] 00:00:00* Test Item Value Reference Range Interpretation Comme nts CHOLESTEROL (test code = 2210) 243 MG/DL TRIGLYCERIDES (test code = 2232) 133 MG/DL HDL CHOLESTEROL (test code = 2220) 44 MG/DL CALC LDL CHOL (test code = 2237) 172 MG/DL RISK RATIO LDL/HDL (test cod e = 2238) 3.91 RATIO LIPID [id number] 00:00:00* Test Item Value Reference Range Interpretation Comme nts CHOLESTEROL (test code = 2210) 243 MG/DL TRIGLYCERIDES (test code = 2232) 133 MG/DL HDL CHOLESTEROL (test code = 2220) 44 MG/DL CALC LDL CHOL (test code = 2237) 172 MG/DL RISK RATIO LDL/HDL (test cod e = 2238) 3.91 RATIO HEMOGLOBIN [id number] 00:00:00* Test Item Value Reference Range Interpretation Comme nts HEMOGLOBIN A1c (test code = 54070) 6.8 % HEMOGLOBIN [id number] 00:00:00* Test Item Value Reference Range Interpretation Comme nts HEMOGLOBIN A1c (test code = 30287) 6.8 % HEMOGLOBIN [id number] 00:00:00* Test Item Value Reference Range Interpretation Comme nts HEMOGLOBIN A1c (test code = 32928) 6.8 % HEMOGLOBIN [id number] 00:00:00* Test Item Value Reference Range Interpretation Comme nts HEMOGLOBIN A1c (test code = 81916) 6.4 % HEMOGLOBIN [id number] 00:00:00* Test Item Value Reference Range Interpretation Comme nts HEMOGLOBIN A1c (test code = 49290) 6.4 % HEMOGLOBIN [id number] 00:00:00* Test Item Value Reference Range Interpretation Comme nts HEMOGLOBIN A1c (test code = 01318) 6.4 % HEMOGLOBIN [id number] 00:00:00* Test Item Value Reference Range Interpretation Comme nts HEMOGLOBIN A1c (test code = 23205) 6.4 % HEMOGLOBIN [id number] 00:00:00* Test Item Value Reference Range Interpretation Comme nts HEMOGLOBIN A1c (test code = 38985) 6.4 % HEMOGLOBIN [id number] 00:00:00* Test Item Value Reference Range Interpretation Comme nts HEMOGLOBIN A1c (test code = 52472) 6.4 % HEMOGLOBIN [id number] 00:00:00* Test Item Value Reference Range Interpretation Comme nts HEMOGLOBIN A1c (test code = 65093) 6.4 % HEMOGLOBIN [id number] 00:00:00* Test Item Value Reference Range Interpretation Comme nts HEMOGLOBIN A1c (test code = 44803) 6.4 % COMPREHENSIVE METABOLIC [id number] 00:00:00* Test Item Value Reference Range Interpretation Comme nts GLUCOSE (test code = 2217) 136 MG/DL BUN (test code = 2208) 12 MG/DL CREATININE (test code = 2214) 0.86 MG/DL eGFR AMER. (test cod e = 82077) 112 ML/MIN/1.73 eGFR NON- AMER. (test code = 92246) 96 ML/MIN/1.73 CALC BUN/CREAT (test code = 2235) 14 RATIO SODIUM (test code = 2231) 136 MEQ/L POTASSIUM (test code = 2228) 4.0 MEQ/L CHLORIDE (test code = 2215) 97 MEQ/L CARBON DIOXIDE (test code = 2206) 28 MEQ/L CALCIUM (test code = 2209) 9.6 MG/DL PROTEIN, TOTAL (test code = 2229) 6.7 G/DL ALBUMIN (test code = 2201) 4.3 G/DL CALC GLOBULIN (test code = 2240) 2.4 G/DL CALC A/G RATIO (test code = 2234) 1.8 RATIO BILIRUBIN, TOTAL (test code = 2207) 0.5 MG/DL ALKALINE PHOSPHATASE (test code = 2204) 59 U/L AST (test code = 2218) 22 U/L ALT (test code = 2219) 38 U/L LIPID [id number] 00:00:00* Test Item Value Reference Range Interpretation Comme nts CHOLESTEROL (test code = 2210) 160 MG/DL TRIGLYCERIDES (test code = 2232) 91 MG/DL HDL CHOLESTEROL (test code = 2220) 36 MG/DL CALC LDL CHOL (test code = 2237) 106 MG/DL RISK RATIO LDL/HDL (test cod e = 2238) 2.94 RATIO HEMOGLOBIN [id number] 00:00:00* Test Item Value Reference Range Interpretation Comme nts HEMOGLOBIN A1c (test code = 72266) 6.9 % HEMOGLOBIN [id number] 00:00:00* Test Item Value Reference Range Interpretation Comme nts HEMOGLOBIN A1c (test code = 99921) 6.9 % COMPREHENSIVE METABOLIC [id number] 00:00:00* Test Item Value Reference Range Interpretation Comme nts GLUCOSE (test code = 2217) 136 MG/DL BUN (test code = 8) 12 MG/DL CREATININE (test code = 2214) 0.86 MG/DL eGFR AMER. (test cod e = 28481) 112 ML/MIN/1.73 eGFR NON- AMER. (test code = 83754) 96 ML/MIN/1.73 CALC BUN/CREAT (test code = 2235) 14 RATIO SODIUM (test code = 2231) 136 MEQ/L POTASSIUM (test code = 2228) 4.0 MEQ/L CHLORIDE (test code = 2215) 97 MEQ/L CARBON DIOXIDE (test code = 2206) 28 MEQ/L CALCIUM (test code = 2209) 9.6 MG/DL PROTEIN, TOTAL (test code = 2229) 6.7 G/DL ALBUMIN (test code = 2201) 4.3 G/DL CALC GLOBULIN (test code = 2240) 2.4 G/DL CALC A/G RATIO (test code = 2234) 1.8 RATIO BILIRUBIN, TOTAL (test code = 2207) 0.5 MG/DL ALKALINE PHOSPHATASE (test code = 2204) 59 U/L AST (test code = 2218) 22 U/L ALT (test code = 2219) 38 U/L COMPREHENSIVE METABOLIC [id number] 00:00:00* Test Item Value Reference Range Interpretation Comme nts GLUCOSE (test code = 2217) 136 MG/DL BUN (test code = 2208) 12 MG/DL CREATININE (test code = 2214) 0.86 MG/DL eGFR AMER. (test cod e = 55596) 112 ML/MIN/1.73 eGFR NON- AMER. (test code = 64710) 96 ML/MIN/1.73 CALC BUN/CREAT (test code = 2235) 14 RATIO SODIUM (test code = 2231) 136 MEQ/L POTASSIUM (test code = 2228) 4.0 MEQ/L CHLORIDE (test code = 2215) 97 MEQ/L CARBON DIOXIDE (test code = 2206) 28 MEQ/L CALCIUM (test code = 2209) 9.6 MG/DL PROTEIN, TOTAL (test code = 2229) 6.7 G/DL ALBUMIN (test code = 2201) 4.3 G/DL CALC GLOBULIN (test code = 2240) 2.4 G/DL CALC A/G RATIO (test code = 2234) 1.8 RATIO BILIRUBIN, TOTAL (test code = 2207) 0.5 MG/DL ALKALINE PHOSPHATASE (test code = 2204) 59 U/L AST (test code = 2218) 22 U/L ALT (test code = 2219) 38 U/L LIPID [id number] 00:00:00* Test Item Value Reference Range Interpretation Comme nts CHOLESTEROL (test code = 2210) 160 MG/DL TRIGLYCERIDES (test code = 2232) 91 MG/DL HDL CHOLESTEROL (test code = 2220) 36 MG/DL CALC LDL CHOL (test code = 2237) 106 MG/DL RISK RATIO LDL/HDL (test cod e = 2238) 2.94 RATIO LIPID [id number] 00:00:00* Test Item Value Reference Range Interpretation Comme nts CHOLESTEROL (test code = 2210) 160 MG/DL TRIGLYCERIDES (test code = 2232) 91 MG/DL HDL CHOLESTEROL (test code = 2220) 36 MG/DL CALC LDL CHOL (test code = 2237) 106 MG/DL RISK RATIO LDL/HDL (test cod e = 2238) 2.94 RATIO HEMOGLOBIN [id number] 00:00:00* Test Item Value Reference Range Interpretation Comme nts HEMOGLOBIN A1c (test code = 45315) 6.9 % HEMOGLOBIN [id number] 00:00:00* Test Item Value Reference Range Interpretation Comme nts HEMOGLOBIN A1c (test code = 07001) 6.9 % HEMOGLOBIN [id number] 00:00:00* Test Item Value Reference Range Interpretation Comme nts HEMOGLOBIN A1c (test code = 98281) 6.9 % COMPREHENSIVE METABOLIC [id number] 00:00:00* Test Item Value Reference Range Interpretation Comme nts GLUCOSE (test code = 2216) 136 MG/DL BUN (test code = 8) 12 MG/DL CREATININE (test code = 2214) 0.86 MG/DL eGFR AMER. (test cod e = 76387) 112 ML/MIN/1.73 eGFR NON- AMER. (test code = 36126) 96 ML/MIN/1.73 CALC BUN/CREAT (test code = 2235) 14 RATIO SODIUM (test code = 2231) 136 MEQ/L POTASSIUM (test code = 2228) 4.0 MEQ/L CHLORIDE (test code = 2215) 97 MEQ/L CARBON DIOXIDE (test code = 2206) 28 MEQ/L CALCIUM (test code = 2209) 9.6 MG/DL PROTEIN, TOTAL (test code = 2229) 6.7 G/DL ALBUMIN (test code = 2201) 4.3 G/DL CALC GLOBULIN (test code = 2240) 2.4 G/DL CALC A/G RATIO (test code = 2234) 1.8 RATIO BILIRUBIN, TOTAL (test code = 2207) 0.5 MG/DL ALKALINE PHOSPHATASE (test code = 2204) 59 U/L AST (test code = 2218) 22 U/L ALT (test code = 2219) 38 U/L COMPREHENSIVE METABOLIC [id number] 00:00:00* Test Item Value Reference Range Interpretation Comme nts GLUCOSE (test code = 2217) 136 MG/DL BUN (test code = 2208) 12 MG/DL CREATININE (test code = 2214) 0.86 MG/DL eGFR AMER. (test cod e = 94695) 112 ML/MIN/1.73 eGFR NON- AMER. (test code = 91076) 96 ML/MIN/1.73 CALC BUN/CREAT (test code = 2235) 14 RATIO SODIUM (test code = 2231) 136 MEQ/L POTASSIUM (test code = 2228) 4.0 MEQ/L CHLORIDE (test code = 2215) 97 MEQ/L CARBON DIOXIDE (test code = 2206) 28 MEQ/L CALCIUM (test code = 2209) 9.6 MG/DL PROTEIN, TOTAL (test code = 222) 6.7 G/DL ALBUMIN (test code = 2201) 4.3 G/DL CALC GLOBULIN (test code = 2240) 2.4 G/DL CALC A/G RATIO (test code = 2234) 1.8 RATIO BILIRUBIN, TOTAL (test code = 2207) 0.5 MG/DL ALKALINE PHOSPHATASE (test code = 2204) 59 U/L AST (test code = 2218) 22 U/L ALT (test code = 2219) 38 U/L LIPID [id number] 00:00:00* Test Item Value Reference Range Interpretation Comme nts CHOLESTEROL (test code = 2210) 160 MG/DL TRIGLYCERIDES (test code = 2232) 91 MG/DL HDL CHOLESTEROL (test code = 2220) 36 MG/DL CALC LDL CHOL (test code = 2237) 106 MG/DL RISK RATIO LDL/HDL (test cod e = 2238) 2.94 RATIO LIPID [id number] 00:00:00* Test Item Value Reference Range Interpretation Comme nts CHOLESTEROL (test code = 2210) 160 MG/DL TRIGLYCERIDES (test code = 2232) 91 MG/DL HDL CHOLESTEROL (test code = 2220) 36 MG/DL CALC LDL CHOL (test code = 2237) 106 MG/DL RISK RATIO LDL/HDL (test cod e = 2238) 2.94 RATIO HEMOGLOBIN [id number] 00:00:00* Test Item Value Reference Range Interpretation Comme nts HEMOGLOBIN A1c (test code = 77332) 6.9 % HEMOGLOBIN [id number] 00:00:00* Test Item Value Reference Range Interpretation Comme nts HEMOGLOBIN A1c (test code = 97680) 6.9 % HEMOGLOBIN [id number] 00:00:00* Test Item Value Reference Range Interpretation Comme nts HEMOGLOBIN A1c (test code = 77464) 6.9 % HEMOGLOBIN [id number] 00:00:00* Test Item Value Reference Range Interpretation Comme nts HEMOGLOBIN A1c (test code = 19857) 6.4 % HEMOGLOBIN [id number] 00:00:00* Test Item Value Reference Range Interpretation Comme nts HEMOGLOBIN A1c (test code = 51660) 6.4 % CBC W/AUTO [id number] 00:00:00* Test Item Value Reference Range Interpretation Comme nts WBC (test code = 1001) 8.2 K/UL RBC (test code = 1002) 4.94 M/UL HEMOGLOBIN (test code = 1003) 15.7 G/DL HEMATOCRIT (test code = 1004) 45.1 % MCV (test code = 1005) 91.3 fL MCH (test code = 1006) 31.8 PG MCHC (test code = 1007) 34.8 G/DL RDW (test code = 1038) 12.3 % NEUTROPHILS (test code = 1008) 61.0 % LYMPHOCYTES (test code = 1010) 27.3 % MONOCYTES (test code = 1011) 7.9 % EOSINOPHILS (test code = 1012) 2.9 % BASOPHILS (test code = 1013) 0.9 % PLATELET COUNT (test code = 1015) 217 K/UL CBC W/AUTO [id number] 00:00:00* Test Item Value Reference Range Interpretation Comme nts WBC (test code = 1001) 8.2 K/UL RBC (test code = 1002) 4.94 M/UL HEMOGLOBIN (test code = 1003) 15.7 G/DL HEMATOCRIT (test code = 1004) 45.1 % MCV (test code = 1005) 91.3 fL MCH (test code = 1006) 31.8 PG MCHC (test code = 1007) 34.8 G/DL RDW (test code = 1038) 12.3 % NEUTROPHILS (test code = 1008) 61.0 % LYMPHOCYTES (test code = 1010) 27.3 % MONOCYTES (test code = 1011) 7.9 % EOSINOPHILS (test code = 1012) 2.9 % BASOPHILS (test code = 1013) 0.9 % PLATELET COUNT (test code = 1015) 217 K/UL COMPREHENSIVE METABOLIC [id number] 00:00:00* Test Item Value Reference Range Interpretation Comme nts GLUCOSE (test code = 2217) 142 MG/DL BUN (test code = 2208) 15 MG/DL CREATININE (test code = 2214) 0.83 MG/DL eGFR AMER. (test cod e = 83827) 113 ML/MIN/1.73 eGFR NON- AMER. (test code = 68256) 98 ML/MIN/1.73 CALC BUN/CREAT (test code = 2235) 18 RATIO SODIUM (test code = 2231) 140 MEQ/L POTASSIUM (test code = 2228) 4.5 MEQ/L CHLORIDE (test code = 2215) 101 MEQ/L CARBON DIOXIDE (test code = 2206) 28 MEQ/L CALCIUM (test code = 2209) 9.6 MG/DL PROTEIN, TOTAL (test code = 2229) 7.5 G/DL ALBUMIN (test code = 2201) 4.7 G/DL CALC GLOBULIN (test code = 2240) 2.8 G/DL CALC A/G RATIO (test code = 2234) 1.7 RATIO BILIRUBIN, TOTAL (test code = 2207) 0.5 MG/DL ALKALINE PHOSPHATASE (test code = 2204) 61 U/L AST (test code = 2218) 26 U/L ALT (test code = 2219) 45 U/L LIPID [id number] 00:00:00* Test Item Value Reference Range Interpretation Comme nts CHOLESTEROL (test code = 2210) 224 MG/DL TRIGLYCERIDES (test code = 2232) 104 MG/DL HDL CHOLESTEROL (test code = 2220) 40 MG/DL CALC LDL CHOL (test code = 2237) 163 MG/DL RISK RATIO LDL/HDL (test cod e = 2238) 4.08 RATIO PSA, [id number] 00:00:00* Test Item Value Reference Range Interpretation Comme nts PSA, TOTAL (test code = 2606) 0.51 NG/ML PSA, [id number] 00:00:00* Test Item Value Reference Range Interpretation Comme nts PSA, TOTAL (test code = 2606) 0.51 NG/ML [id number] 00:00:00* Test Item Value Reference Range Interpretation Comme nts TSH, THIRD GENERATION (test code = 2821) 1.250 UIU/ML [id number] 00:00:00* Test Item Value Reference Range Interpretation Comme nts TSH, THIRD GENERATION (test code = 2821) 1.250 UIU/ML HEMOGLOBIN [id number] 00:00:00* Test Item Value Reference Range Interpretation Comme nts HEMOGLOBIN A1c (test code = 60722) 6.4 % HEMOGLOBIN [id number] 00:00:00* Test Item Value Reference Range Interpretation Comme nts HEMOGLOBIN A1c (test code = 75573) 6.4 % HEMOGLOBIN [id number] 00:00:00* Test Item Value Reference Range Interpretation Comme nts HEMOGLOBIN A1c (test code = 91766) 6.4 % CBC W/AUTO [id number] 00:00:00* Test Item Value Reference Range Interpretation Comme nts WBC (test code = 1001) 8.2 K/UL RBC (test code = 1002) 4.94 M/UL HEMOGLOBIN (test code = 1003) 15.7 G/DL HEMATOCRIT (test code = 1004) 45.1 % MCV (test code = 1005) 91.3 fL MCH (test code = 1006) 31.8 PG MCHC (test code = 1007) 34.8 G/DL RDW (test code = 1038) 12.3 % NEUTROPHILS (test code = 1008) 61.0 % LYMPHOCYTES (test code = 1010) 27.3 % MONOCYTES (test code = 1011) 7.9 % EOSINOPHILS (test code = 1012) 2.9 % BASOPHILS (test code = 1013) 0.9 % PLATELET COUNT (test code = 1015) 217 K/UL CBC W/AUTO [id number] 00:00:00* Test Item Value Reference Range Interpretation Comme nts WBC (test code = 1001) 8.2 K/UL RBC (test code = 1002) 4.94 M/UL HEMOGLOBIN (test code = 1003) 15.7 G/DL HEMATOCRIT (test code = 1004) 45.1 % MCV (test code = 1005) 91.3 fL MCH (test code = 1006) 31.8 PG MCHC (test code = 1007) 34.8 G/DL RDW (test code = 1038) 12.3 % NEUTROPHILS (test code = 1008) 61.0 % LYMPHOCYTES (test code = 1010) 27.3 % MONOCYTES (test code = 1011) 7.9 % EOSINOPHILS (test code = 1012) 2.9 % BASOPHILS (test code = 1013) 0.9 % PLATELET COUNT (test code = 1015) 217 K/UL CBC W/AUTO [id number] 00:00:00* Test Item Value Reference Range Interpretation Comme nts WBC (test code = 1001) 8.2 K/UL RBC (test code = 1002) 4.94 M/UL HEMOGLOBIN (test code = 1003) 15.7 G/DL HEMATOCRIT (test code = 1004) 45.1 % MCV (test code = 1005) 91.3 fL MCH (test code = 1006) 31.8 PG MCHC (test code = 1007) 34.8 G/DL RDW (test code = 1038) 12.3 % NEUTROPHILS (test code = 1008) 61.0 % LYMPHOCYTES (test code = 1010) 27.3 % MONOCYTES (test code = 1011) 7.9 % EOSINOPHILS (test code = 1012) 2.9 % BASOPHILS (test code = 1013) 0.9 % PLATELET COUNT (test code = 1015) 217 K/UL COMPREHENSIVE METABOLIC [id number] 00:00:00* Test Item Value Reference Range Interpretation Comme nts GLUCOSE (test code = 2217) 142 MG/DL BUN (test code = 2208) 15 MG/DL CREATININE (test code = 2214) 0.83 MG/DL eGFR AMER. (test cod e = 01808) 113 ML/MIN/1.73 eGFR NON- AMER. (test code = 29856) 98 ML/MIN/1.73 CALC BUN/CREAT (test code = 2235) 18 RATIO SODIUM (test code = 2231) 140 MEQ/L POTASSIUM (test code = 2228) 4.5 MEQ/L CHLORIDE (test code = 2215) 101 MEQ/L CARBON DIOXIDE (test code = 2206) 28 MEQ/L CALCIUM (test code = 2209) 9.6 MG/DL PROTEIN, TOTAL (test code = 2229) 7.5 G/DL ALBUMIN (test code = 2201) 4.7 G/DL CALC GLOBULIN (test code = 2240) 2.8 G/DL CALC A/G RATIO (test code = 2234) 1.7 RATIO BILIRUBIN, TOTAL (test code = 2207) 0.5 MG/DL ALKALINE PHOSPHATASE (test code = 2204) 61 U/L AST (test code = 2218) 26 U/L ALT (test code = 2219) 45 U/L COMPREHENSIVE METABOLIC [id number] 00:00:00* Test Item Value Reference Range Interpretation Comme nts GLUCOSE (test code = 2217) 142 MG/DL BUN (test code = 2208) 15 MG/DL CREATININE (test code = 2214) 0.83 MG/DL eGFR AMER. (test cod e = 71605) 113 ML/MIN/1.73 eGFR NON- AMER. (test code = 86806) 98 ML/MIN/1.73 CALC BUN/CREAT (test code = 2235) 18 RATIO SODIUM (test code = 2231) 140 MEQ/L POTASSIUM (test code = 2228) 4.5 MEQ/L CHLORIDE (test code = 2215) 101 MEQ/L CARBON DIOXIDE (test code = 2206) 28 MEQ/L CALCIUM (test code = 2209) 9.6 MG/DL PROTEIN, TOTAL (test code = 2229) 7.5 G/DL ALBUMIN (test code = 2201) 4.7 G/DL CALC GLOBULIN (test code = 2240) 2.8 G/DL CALC A/G RATIO (test code = 2234) 1.7 RATIO BILIRUBIN, TOTAL (test code = 2207) 0.5 MG/DL ALKALINE PHOSPHATASE (test code = 2204) 61 U/L AST (test code = 2218) 26 U/L ALT (test code = 2219) 45 U/L LIPID [id number] 00:00:00* Test Item Value Reference Range Interpretation Comme nts CHOLESTEROL (test code = 2210) 224 MG/DL TRIGLYCERIDES (test code = 2232) 104 MG/DL HDL CHOLESTEROL (test code = 2220) 40 MG/DL CALC LDL CHOL (test code = 2237) 163 MG/DL RISK RATIO LDL/HDL (test cod e = 2238) 4.08 RATIO LIPID [id number] 00:00:00* Test Item Value Reference Range Interpretation Comme nts CHOLESTEROL (test code = 2210) 224 MG/DL TRIGLYCERIDES (test code = 2232) 104 MG/DL HDL CHOLESTEROL (test code = 2220) 40 MG/DL CALC LDL CHOL (test code = 2237) 163 MG/DL RISK RATIO LDL/HDL (test cod e = 2238) 4.08 RATIO PSA, [id number] 00:00:00* Test Item Value Reference Range Interpretation Comme nts PSA, TOTAL (test code = 2606) 0.51 NG/ML PSA, [id number] 00:00:00* Test Item Value Reference Range Interpretation Comme nts PSA, TOTAL (test code = 2606) 0.51 NG/ML PSA, [id number] 00:00:00* Test Item Value Reference Range Interpretation Comme nts PSA, TOTAL (test code = 2606) 0.51 NG/ML [id number] 00:00:00* Test Item Value Reference Range Interpretation Comme nts TSH, THIRD GENERATION (test code = 2821) 1.250 UIU/ML [id number] 00:00:00* Test Item Value Reference Range Interpretation Comme nts TSH, THIRD GENERATION (test code = 2821) 1.250 UIU/ML [id number] 00:00:00* Test Item Value Reference Range Interpretation Comme nts TSH, THIRD GENERATION (test code = 2821) 1.250 UIU/ML HEMOGLOBIN [id number] 00:00:00* Test Item Value Reference Range Interpretation Comme nts HEMOGLOBIN A1c (test code = 87635) 6.4 % HEMOGLOBIN [id number] 00:00:00* Test Item Value Reference Range Interpretation Comme nts HEMOGLOBIN A1c (test code = 16063) 6.4 % HEMOGLOBIN [id number] 00:00:00* Test Item Value Reference Range Interpretation Comme nts HEMOGLOBIN A1c (test code = 24378) 6.4 % CBC W/AUTO [id number] 00:00:00* Test Item Value Reference Range Interpretation Comme nts WBC (test code = 1001) 8.2 K/UL RBC (test code = 1002) 4.94 M/UL HEMOGLOBIN (test code = 1003) 15.7 G/DL HEMATOCRIT (test code = 1004) 45.1 % MCV (test code = 1005) 91.3 fL MCH (test code = 1006) 31.8 PG MCHC (test code = 1007) 34.8 G/DL RDW (test code = 1038) 12.3 % NEUTROPHILS (test code = 1008) 61.0 % LYMPHOCYTES (test code = 1010) 27.3 % MONOCYTES (test code = 1011) 7.9 % EOSINOPHILS (test code = 1012) 2.9 % BASOPHILS (test code = 1013) 0.9 % PLATELET COUNT (test code = 1015) 217 K/UL CBC W/AUTO [id number] 00:00:00* Test Item Value Reference Range Interpretation Comme nts WBC (test code = 1001) 8.2 K/UL RBC (test code = 1002) 4.94 M/UL HEMOGLOBIN (test code = 1003) 15.7 G/DL HEMATOCRIT (test code = 1004) 45.1 % MCV (test code = 1005) 91.3 fL MCH (test code = 1006) 31.8 PG MCHC (test code = 1007) 34.8 G/DL RDW (test code = 1038) 12.3 % NEUTROPHILS (test code = 1008) 61.0 % LYMPHOCYTES (test code = 1010) 27.3 % MONOCYTES (test code = 1011) 7.9 % EOSINOPHILS (test code = 1012) 2.9 % BASOPHILS (test code = 1013) 0.9 % PLATELET COUNT (test code = 1015) 217 K/UL CBC W/AUTO [id number] 00:00:00* Test Item Value Reference Range Interpretation Comme nts WBC (test code = 1001) 8.2 K/UL RBC (test code = 1002) 4.94 M/UL HEMOGLOBIN (test code = 1003) 15.7 G/DL HEMATOCRIT (test code = 1004) 45.1 % MCV (test code = 1005) 91.3 fL MCH (test code = 1006) 31.8 PG MCHC (test code = 1007) 34.8 G/DL RDW (test code = 1038) 12.3 % NEUTROPHILS (test code = 1008) 61.0 % LYMPHOCYTES (test code = 1010) 27.3 % MONOCYTES (test code = 1011) 7.9 % EOSINOPHILS (test code = 1012) 2.9 % BASOPHILS (test code = 1013) 0.9 % PLATELET COUNT (test code = 1015) 217 K/UL COMPREHENSIVE METABOLIC [id number] 00:00:00* Test Item Value Reference Range Interpretation Comme nts GLUCOSE (test code = 2217) 142 MG/DL BUN (test code = 2208) 15 MG/DL CREATININE (test code = 2214) 0.83 MG/DL eGFR AMER. (test cod e = 44435) 113 ML/MIN/1.73 eGFR NON- AMER. (test code = 11206) 98 ML/MIN/1.73 CALC BUN/CREAT (test code = 2235) 18 RATIO SODIUM (test code = 2231) 140 MEQ/L POTASSIUM (test code = 2228) 4.5 MEQ/L CHLORIDE (test code = 2215) 101 MEQ/L CARBON DIOXIDE (test code = 2206) 28 MEQ/L CALCIUM (test code = 2209) 9.6 MG/DL PROTEIN, TOTAL (test code = 2229) 7.5 G/DL ALBUMIN (test code = 2201) 4.7 G/DL CALC GLOBULIN (test code = 2240) 2.8 G/DL CALC A/G RATIO (test code = 2234) 1.7 RATIO BILIRUBIN, TOTAL (test code = 2207) 0.5 MG/DL ALKALINE PHOSPHATASE (test code = 2204) 61 U/L AST (test code = 2218) 26 U/L ALT (test code = 2219) 45 U/L COMPREHENSIVE METABOLIC [id number] 00:00:00* Test Item Value Reference Range Interpretation Comme nts GLUCOSE (test code = 2217) 142 MG/DL BUN (test code = 2208) 15 MG/DL CREATININE (test code = 2214) 0.83 MG/DL eGFR AMER. (test cod e = 28066) 113 ML/MIN/1.73 eGFR NON- AMER. (test code = 04958) 98 ML/MIN/1.73 CALC BUN/CREAT (test code = 2235) 18 RATIO SODIUM (test code = 2231) 140 MEQ/L POTASSIUM (test code = 2228) 4.5 MEQ/L CHLORIDE (test code = 2215) 101 MEQ/L CARBON DIOXIDE (test code = 2206) 28 MEQ/L CALCIUM (test code = 2209) 9.6 MG/DL PROTEIN, TOTAL (test code = 2229) 7.5 G/DL ALBUMIN (test code = 2201) 4.7 G/DL CALC GLOBULIN (test code = 2240) 2.8 G/DL CALC A/G RATIO (test code = 2234) 1.7 RATIO BILIRUBIN, TOTAL (test code = 2207) 0.5 MG/DL ALKALINE PHOSPHATASE (test code = 2204) 61 U/L AST (test code = 2218) 26 U/L ALT (test code = 2219) 45 U/L LIPID [id number] 00:00:00* Test Item Value Reference Range Interpretation Comme nts CHOLESTEROL (test code = 2210) 224 MG/DL TRIGLYCERIDES (test code = 2232) 104 MG/DL HDL CHOLESTEROL (test code = 2220) 40 MG/DL CALC LDL CHOL (test code = 2237) 163 MG/DL RISK RATIO LDL/HDL (test cod e = 2238) 4.08 RATIO LIPID [id number] 00:00:00* Test Item Value Reference Range Interpretation Comme nts CHOLESTEROL (test code = 2210) 224 MG/DL TRIGLYCERIDES (test code = 2232) 104 MG/DL HDL CHOLESTEROL (test code = 2220) 40 MG/DL CALC LDL CHOL (test code = 2237) 163 MG/DL RISK RATIO LDL/HDL (test cod e = 2238) 4.08 RATIO PSA, [id number] 00:00:00* Test Item Value Reference Range Interpretation Comme nts PSA, TOTAL (test code = 2606) 0.51 NG/ML PSA, [id number] 00:00:00* Test Item Value Reference Range Interpretation Comme nts PSA, TOTAL (test code = 2606) 0.51 NG/ML PSA, [id number] 00:00:00* Test Item Value Reference Range Interpretation Comme nts PSA, TOTAL (test code = 2606) 0.51 NG/ML [id number] 00:00:00* Test Item Value Reference Range Interpretation Comme nts TSH, THIRD GENERATION (test code = 2821) 1.250 UIU/ML [id number] 00:00:00* Test Item Value Reference Range Interpretation Comme nts TSH, THIRD GENERATION (test code = 2821) 1.250 UIU/ML [id number] 00:00:00* Test Item Value Reference Range Interpretation Comme nts TSH, THIRD GENERATION (test code = 2821) 1.250 UIU/ML THYROID II PROFILE (T3U, T4, T7, TSH)2014-07-22 00:00:00* Test Item Value Reference Range Interpretation Comme nts T3 UPTAKE (test code = 2817) 27.8 % T4 (THYROXINE) (test code = 2819) 5.6 UG/DL CALCULATED T7 (FTI) (test co de = 2820) 1.56 TSH (test code = 2821) 1.1 UIU/ML LIPID [id number] 00:00:00* Test Item Value Reference Range Interpretation Comme nts CHOLESTEROL (test code = 2210) 234 MG/DL TRIGLYCERIDES (test code = 2232) 92 MG/DL HDL CHOLESTEROL (test code = 2220) 42 MG/DL CALCULATED LDL CHOL (test co de = 2237) 174 MG/DL RISK RATIO LDL/HDL (test cod e = 2238) 4.13 RATIO CBC W/AUTO [id number] 00:00:00* Test Item Value Reference Range Interpretation Comme nts WBC (test code = 1001) 7.7 K/UL RBC (test code = 1002) 4.90 M/UL HEMOGLOBIN (test code = 1003) 15.3 G/DL HEMATOCRIT (test code = 1004) 44.9 % MCV (test code = 1005) 91.6 fL MCH (test code = 1006) 31.2 PG MCHC (test code = 1007) 34.1 G/DL RDW (test code = 1038) 13.4 % NEUTROPHILS (test code = 1008) 69 % LYMPHOCYTES (test code = 1010) 23 % MONOCYTES (test code = 1011) 5 % EOSINOPHILS (test code = 1012) 2 % BASOPHILS (test code = 1013) 1 % PLATELET COUNT (test code = 1015) 206 K/UL CBC W/AUTO [id number] 00:00:00* Test Item Value Reference Range Interpretation Comme nts WBC (test code = 1001) 7.7 K/UL RBC (test code = 1002) 4.90 M/UL HEMOGLOBIN (test code = 1003) 15.3 G/DL HEMATOCRIT (test code = 1004) 44.9 % MCV (test code = 1005) 91.6 fL MCH (test code = 1006) 31.2 PG MCHC (test code = 1007) 34.1 G/DL RDW (test code = 1038) 13.4 % NEUTROPHILS (test code = 1008) 69 % LYMPHOCYTES (test code = 1010) 23 % MONOCYTES (test code = 1011) 5 % EOSINOPHILS (test code = 1012) 2 % BASOPHILS (test code = 1013) 1 % PLATELET COUNT (test code = 1015) 206 K/UL COMPREHENSIVE METABOLIC [id number] 00:00:00* Test Item Value Reference Range Interpretation Comme nts GLUCOSE (test code = 2217) 100 MG/DL BUN (test code = 2208) 12 MG/DL CREATININE (test code = 2214) 0.8 MG/DL eGFR AMER. (test cod e = 31272) 122 ML/MIN/1.73 eGFR NON- AMER. (test code = 35674) 101 ML/MIN/1.73 CALCULATED BUN/CREAT (test code = 2235) 15 RATIO SODIUM (test code = 2231) 137 MEQ/L POTASSIUM (test code = 2228) 4.4 MEQ/L CHLORIDE (test code = 2215) 103 MEQ/L CARBON DIOXIDE (test code = 2206) 25 MEQ/L CALCIUM (test code = 2209) 10.1 MG/DL PROTEIN, TOTAL (test code = 2229) 7.1 G/DL ALBUMIN (test code = 2201) 4.5 G/DL CALCULATED GLOBULIN (test code = 2240) 2.6 G/DL CALCULATED A/G RATIO (test code = 2234) 1.7 RATIO BILIRUBIN, TOTAL (test code = 2207) 0.4 MG/DL ALKALINE PHOSPHATASE (test code = 2204) 57 U/L SGOT (AST) (test code = 2218) 18 U/L SGPT (ALT) (test code = 2219) 23 U/L HEMOGLOBIN [id number] 00:00:00* Test Item Value Reference Range Interpretation Comme [facility] HEMOGLOBIN A1c (test code = 14569) 5.9 % HEMOGLOBIN [id number] 00:00:00* Test Item Value Reference Range Interpretation Comme [facility] HEMOGLOBIN A1c (test code = 10839) 5.9 % THYROID II PROFILE (T3U, T4, T7, TSH)2014-07-22 00:00:00* Test Item Value Reference Range Interpretation Comme nts T3 UPTAKE (test code = 2817) 27.8 % T4 (THYROXINE) (test code = 2819) 5.6 UG/DL CALCULATED T7 (FTI) (test co de = 2820) 1.56 TSH (test code = 2821) 1.1 UIU/ML THYROID II PROFILE (T3U, T4, T7, TSH)2014-07-22 00:00:00* Test Item Value Reference Range Interpretation Comme nts T3 UPTAKE (test code = 2817) 27.8 % T4 (THYROXINE) (test code = 2819) 5.6 UG/DL CALCULATED T7 (FTI) (test co de = 2820) 1.56 TSH (test code = 2821) 1.1 UIU/ML LIPID [id number] 00:00:00* Test Item Value Reference Range Interpretation Comme nts CHOLESTEROL (test code = 2210) 234 MG/DL TRIGLYCERIDES (test code = 2232) 92 MG/DL HDL CHOLESTEROL (test code = 2220) 42 MG/DL CALCULATED LDL CHOL (test co de = 2237) 174 MG/DL RISK RATIO LDL/HDL (test cod e = 2238) 4.13 RATIO LIPID [id number] 00:00:00* Test Item Value Reference Range Interpretation Comme nts CHOLESTEROL (test code = 2210) 234 MG/DL TRIGLYCERIDES (test code = 2232) 92 MG/DL HDL CHOLESTEROL (test code = 2220) 42 MG/DL CALCULATED LDL CHOL (test co de = 2237) 174 MG/DL RISK RATIO LDL/HDL (test cod e = 2238) 4.13 RATIO CBC W/AUTO [id number] 00:00:00* Test Item Value Reference Range Interpretation Comme nts WBC (test code = 1001) 7.7 K/UL RBC (test code = 1002) 4.90 M/UL HEMOGLOBIN (test code = 1003) 15.3 G/DL HEMATOCRIT (test code = 1004) 44.9 % MCV (test code = 1005) 91.6 fL MCH (test code = 1006) 31.2 PG MCHC (test code = 1007) 34.1 G/DL RDW (test code = 1038) 13.4 % NEUTROPHILS (test code = 1008) 69 % LYMPHOCYTES (test code = 1010) 23 % MONOCYTES (test code = 1011) 5 % EOSINOPHILS (test code = 1012) 2 % BASOPHILS (test code = 1013) 1 % PLATELET COUNT (test code = 1015) 206 K/UL CBC W/AUTO [id number] 00:00:00* Test Item Value Reference Range Interpretation Comme nts WBC (test code = 1001) 7.7 K/UL RBC (test code = 1002) 4.90 M/UL HEMOGLOBIN (test code = 1003) 15.3 G/DL HEMATOCRIT (test code = 1004) 44.9 % MCV (test code = 1005) 91.6 fL MCH (test code = 1006) 31.2 PG MCHC (test code = 1007) 34.1 G/DL RDW (test code = 1038) 13.4 % NEUTROPHILS (test code = 1008) 69 % LYMPHOCYTES (test code = 1010) 23 % MONOCYTES (test code = 1011) 5 % EOSINOPHILS (test code = 1012) 2 % BASOPHILS (test code = 1013) 1 % PLATELET COUNT (test code = 1015) 206 K/UL CBC W/AUTO [id number] 00:00:00* Test Item Value Reference Range Interpretation Comme nts WBC (test code = 1001) 7.7 K/UL RBC (test code = 1002) 4.90 M/UL HEMOGLOBIN (test code = 1003) 15.3 G/DL HEMATOCRIT (test code = 1004) 44.9 % MCV (test code = 1005) 91.6 fL MCH (test code = 1006) 31.2 PG MCHC (test code = 1007) 34.1 G/DL RDW (test code = 1038) 13.4 % NEUTROPHILS (test code = 1008) 69 % LYMPHOCYTES (test code = 1010) 23 % MONOCYTES (test code = 1011) 5 % EOSINOPHILS (test code = 1012) 2 % BASOPHILS (test code = 1013) 1 % PLATELET COUNT (test code = 1015) 206 K/UL COMPREHENSIVE METABOLIC [id number] 00:00:00* Test Item Value Reference Range Interpretation Comme nts GLUCOSE (test code = 2217) 100 MG/DL BUN (test code = 2208) 12 MG/DL CREATININE (test code = 2214) 0.8 MG/DL eGFR AMER. (test cod e = 51141) 122 ML/MIN/1.73 eGFR NON- AMER. (test code = 64467) 101 ML/MIN/1.73 CALCULATED BUN/CREAT (test code = 2235) 15 RATIO SODIUM (test code = 2231) 137 MEQ/L POTASSIUM (test code = 2228) 4.4 MEQ/L CHLORIDE (test code = 2215) 103 MEQ/L CARBON DIOXIDE (test code = 2206) 25 MEQ/L CALCIUM (test code = 2209) 10.1 MG/DL PROTEIN, TOTAL (test code = 2229) 7.1 G/DL ALBUMIN (test code = 2201) 4.5 G/DL CALCULATED GLOBULIN (test code = 2240) 2.6 G/DL CALCULATED A/G RATIO (test code = 2234) 1.7 RATIO BILIRUBIN, TOTAL (test code = 2207) 0.4 MG/DL ALKALINE PHOSPHATASE (test code = 2204) 57 U/L SGOT (AST) (test code = 2218) 18 U/L SGPT (ALT) (test code = 2219) 23 U/L COMPREHENSIVE METABOLIC [id number] 00:00:00* Test Item Value Reference Range Interpretation Comme nts GLUCOSE (test code = 2217) 100 MG/DL BUN (test code = 2208) 12 MG/DL CREATININE (test code = 2214) 0.8 MG/DL eGFR AMER. (test cod e = 28564) 122 ML/MIN/1.73 eGFR NON- AMER. (test code = 20996) 101 ML/MIN/1.73 CALCULATED BUN/CREAT (test code = 2235) 15 RATIO SODIUM (test code = 2231) 137 MEQ/L POTASSIUM (test code = 2228) 4.4 MEQ/L CHLORIDE (test code = 2215) 103 MEQ/L CARBON DIOXIDE (test code = 2206) 25 MEQ/L CALCIUM (test code = 2209) 10.1 MG/DL PROTEIN, TOTAL (test code = 2229) 7.1 G/DL ALBUMIN (test code = 2201) 4.5 G/DL CALCULATED GLOBULIN (test code = 2240) 2.6 G/DL CALCULATED A/G RATIO (test code = 2234) 1.7 RATIO BILIRUBIN, TOTAL (test code = 2207) 0.4 MG/DL ALKALINE PHOSPHATASE (test code = 2204) 57 U/L SGOT (AST) (test code = 2218) 18 U/L SGPT (ALT) (test code = 2219) 23 U/L HEMOGLOBIN [id number] 00:00:00* Test Item Value Reference Range Interpretation Comme nts HEMOGLOBIN A1c (test code = 18826) 5.9 % HEMOGLOBIN [id number] 00:00:00* Test Item Value Reference Range Interpretation Comme nts HEMOGLOBIN A1c (test code = 89258) 5.9 % HEMOGLOBIN [id number] 00:00:00* Test Item Value Reference Range Interpretation Comme nts HEMOGLOBIN A1c (test code = 00544) 5.9 % THYROID II PROFILE (T3U, T4, T7, TSH)2014-07-22 00:00:00* Test Item Value Reference Range Interpretation Comme nts T3 UPTAKE (test code = 2817) 27.8 % T4 (THYROXINE) (test code = 2819) 5.6 UG/DL CALCULATED T7 (FTI) (test co de = 2820) 1.56 TSH (test code = 2821) 1.1 UIU/ML THYROID II PROFILE (T3U, T4, T7, TSH)2014-07-22 00:00:00* Test Item Value Reference Range Interpretation Comme nts T3 UPTAKE (test code = 2817) 27.8 % T4 (THYROXINE) (test code = 2819) 5.6 UG/DL CALCULATED T7 (FTI) (test co de = 2820) 1.56 TSH (test code = 2821) 1.1 UIU/ML LIPID [id number] 00:00:00* Test Item Value Reference Range Interpretation Comme nts CHOLESTEROL (test code = 2210) 234 MG/DL TRIGLYCERIDES (test code = 2232) 92 MG/DL HDL CHOLESTEROL (test code = 2220) 42 MG/DL CALCULATED LDL CHOL (test co de = 2237) 174 MG/DL RISK RATIO LDL/HDL (test cod e = 2238) 4.13 RATIO LIPID [id number] 00:00:00* Test Item Value Reference Range Interpretation Comme nts CHOLESTEROL (test code = 2210) 234 MG/DL TRIGLYCERIDES (test code = 2232) 92 MG/DL HDL CHOLESTEROL (test code = 2220) 42 MG/DL CALCULATED LDL CHOL (test co de = 2237) 174 MG/DL RISK RATIO LDL/HDL (test cod e = 2238) 4.13 RATIO CBC W/AUTO [id number] 00:00:00* Test Item Value Reference Range Interpretation Comme nts WBC (test code = 1001) 7.7 K/UL RBC (test code = 1002) 4.90 M/UL HEMOGLOBIN (test code = 1003) 15.3 G/DL HEMATOCRIT (test code = 1004) 44.9 % MCV (test code = 1005) 91.6 fL MCH (test code = 1006) 31.2 PG MCHC (test code = 1007) 34.1 G/DL RDW (test code = 1038) 13.4 % NEUTROPHILS (test code = 1008) 69 % LYMPHOCYTES (test code = 1010) 23 % MONOCYTES (test code = 1011) 5 % EOSINOPHILS (test code = 1012) 2 % BASOPHILS (test code = 1013) 1 % PLATELET COUNT (test code = 1015) 206 K/UL CBC W/AUTO [id number] 00:00:00* Test Item Value Reference Range Interpretation Comme nts WBC (test code = 1001) 7.7 K/UL RBC (test code = 1002) 4.90 M/UL HEMOGLOBIN (test code = 1003) 15.3 G/DL HEMATOCRIT (test code = 1004) 44.9 % MCV (test code = 1005) 91.6 fL MCH (test code = 1006) 31.2 PG MCHC (test code = 1007) 34.1 G/DL RDW (test code = 1038) 13.4 % NEUTROPHILS (test code = 1008) 69 % LYMPHOCYTES (test code = 1010) 23 % MONOCYTES (test code = 1011) 5 % EOSINOPHILS (test code = 1012) 2 % BASOPHILS (test code = 1013) 1 % PLATELET COUNT (test code = 1015) 206 K/UL CBC W/AUTO [id number] 00:00:00* Test Item Value Reference Range Interpretation Comme nts WBC (test code = 1001) 7.7 K/UL RBC (test code = 1002) 4.90 M/UL HEMOGLOBIN (test code = 1003) 15.3 G/DL HEMATOCRIT (test code = 1004) 44.9 % MCV (test code = 1005) 91.6 fL MCH (test code = 1006) 31.2 PG MCHC (test code = 1007) 34.1 G/DL RDW (test code = 1038) 13.4 % NEUTROPHILS (test code = 1008) 69 % LYMPHOCYTES (test code = 1010) 23 % MONOCYTES (test code = 1011) 5 % EOSINOPHILS (test code = 1012) 2 % BASOPHILS (test code = 1013) 1 % PLATELET COUNT (test code = 1015) 206 K/UL COMPREHENSIVE METABOLIC [id number] 00:00:00* Test Item Value Reference Range Interpretation Comme nts GLUCOSE (test code = 2217) 100 MG/DL BUN (test code = 2208) 12 MG/DL CREATININE (test code = 2214) 0.8 MG/DL eGFR AMER. (test cod e = 43652) 122 ML/MIN/1.73 eGFR NON- AMER. (test code = 80404) 101 ML/MIN/1.73 CALCULATED BUN/CREAT (test code = 2235) 15 RATIO SODIUM (test code = 2231) 137 MEQ/L POTASSIUM (test code = 2228) 4.4 MEQ/L CHLORIDE (test code = 2215) 103 MEQ/L CARBON DIOXIDE (test code = 2206) 25 MEQ/L CALCIUM (test code = 2209) 10.1 MG/DL PROTEIN, TOTAL (test code = 2229) 7.1 G/DL ALBUMIN (test code = 2201) 4.5 G/DL CALCULATED GLOBULIN (test code = 2240) 2.6 G/DL CALCULATED A/G RATIO (test code = 2234) 1.7 RATIO BILIRUBIN, TOTAL (test code = 2207) 0.4 MG/DL ALKALINE PHOSPHATASE (test code = 2204) 57 U/L SGOT (AST) (test code = 2218) 18 U/L SGPT (ALT) (test code = 2219) 23 U/L COMPREHENSIVE METABOLIC [id number] 00:00:00* Test Item Value Reference Range Interpretation Comme nts GLUCOSE (test code = 2217) 100 MG/DL BUN (test code = 2208) 12 MG/DL CREATININE (test code = 2214) 0.8 MG/DL eGFR AMER. (test cod e = 36821) 122 ML/MIN/1.73 eGFR NON- AMER. (test code = 66544) 101 ML/MIN/1.73 CALCULATED BUN/CREAT (test code = 2235) 15 RATIO SODIUM (test code = 2231) 137 MEQ/L POTASSIUM (test code = 2228) 4.4 MEQ/L CHLORIDE (test code = 2215) 103 MEQ/L CARBON DIOXIDE (test code = 2206) 25 MEQ/L CALCIUM (test code = 2209) 10.1 MG/DL PROTEIN, TOTAL (test code = 2229) 7.1 G/DL ALBUMIN (test code = 2201) 4.5 G/DL CALCULATED GLOBULIN (test code = 2240) 2.6 G/DL CALCULATED A/G RATIO (test code = 2234) 1.7 RATIO BILIRUBIN, TOTAL (test code = 2207) 0.4 MG/DL ALKALINE PHOSPHATASE (test code = 2203) 57 U/L SGOT (AST) (test code = 221) 18 U/L SGPT (ALT) (test code = 2218) 23 U/L HEMOGLOBIN [id number] 00:00:00* Test Item Value Reference Range Interpretation Comme nts HEMOGLOBIN A1c (test code = 26804) 5.9 % HEMOGLOBIN [id number] 00:00:00* Test Item Value Reference Range Interpretation Comme nts HEMOGLOBIN A1c (test code = 34090) 5.9 % HEMOGLOBIN [id number] 00:00:00* Test Item Value Reference Range Interpretation Comme nts HEMOGLOBIN A1c (test code = 28358) 5.9 % Notes Date/Time Note Provider Source 2022-11-13 11:01:48 [id number] [id number] 1fnoQ3yDQinXq/RJFwrBKdJCiYDlAE [id number]:01:48Formatt ing of this note might be different from the original.Patient is here for 3 month f/u for diabetes and requesting medication refills, BP 140/80, Hr 57, medications reconciled. 71096-9Atkdi AnadYE3704-61-36R75:02:31Nurse [id number] .[id number] [facility] [id number] [id number] [facility] [place].[id number]:02:311.2. [id number]|1.2.840.1 [id number] Mala Pagan [facility]"
[2023-07-20 18:02] LABS: Absolute Eosinophils 0.3 K/uL (0-0.5); Absolute Lymphocytes (CBC) 2.7 K/uL (0.7-4.9); Absolute Monocytes 0.9 K/uL (0.1-1.3); Absolute Neutrophil 6.6 K/uL (1.8-8.0); Basophils % 0.3 % (0-1.3); Eosinophils % 3.2 % (0-4.4); Hematocrit 43.2 % (39.6-49.0); Lymphocytes % 25.4 % (15.3-44.8); MCH 33.1 pg (27.0-35.0); MCHC 34.6 g/dL (32.0-36.0); MCV 95.5 fL (80-100); MPV 6.9 fL (7.6-11.3); Monocytes % 8.3 % (3.3-12.3); Neutrophils % 62.8 % (41.7-73.7); Nucleated Red Blood Cells % 0.1 % (0-0); Platelets 194 thou/uL (152-406); RBC Red Blood Cell Count 4.52 M/uL (4.33-5.43); Red Cell Distribution Width 13.5 % (12.1-15.2)
[2023-07-20 18:08] LABS: PT Prothrombin Time 12.8 SECONDS (9.5-12.5); Protime INR 1.17
[2023-07-20 18:21] LABS: Anion Gap 6.9 mEq/L (5.0-15.0); Magnesium 1.9 mg/dL (1.6-2.4); Potassium 3.9 mEq/L (3.5-5.1)
--- NOTE | 2023-07-20 19:11 | RAD REPORT ---
EXAM DESCRIPTION: CT - Angio Aorta For Dissection - 07/20/2023 6:43 pm CLINICAL HISTORY: . Chest and abd pain COMPARISON: 2017 CT chest TECHNIQUE: Computed tomography angiography of the chest, abdomen pelvis were obtained. 100 cc Isovue 370 was administered intravenously. Coronal and sagittal reconstruction were performed. MIP 3D reconstruction was performed All CT scans are performed using dose optimization technique as appropriate and may include automated exposure control or mA/KV adjustment according to patient size. FINDINGS: An aortic dissection is not seen. 4.5 centimeter ascending thoracic aortic aneurysm uncha nged The celiac, SMA, renal arteries and ANTON are patent . 3.7 centimeter ground-glass opacity right middle lobe. . A pericardial effusion is not seen. A pleura l effusion is not noted. Fatty liver The spleen, pancreas,adrenals and kidneys demonstrate no significant abnormality. There no evidence diverticulitis. Small inguinal hernias IMPRESSION: Negative for an aortic dissection. Stable 4.5 centimeter ascending thoracic aortic aneurysm 3.7 centimeter ground-glass opacity right lung may be inflammatory
--- NOTE | 2023-07-20 19:12 | RAD REPORT ---
EXAM DESCRIPTION: [facility] Single View07/20/2023 6:13 pm CLINICAL HISTORY: Chest pain COMPARISON: 2021 FINDINGS: Mid right lung is mildly hazy. The heart is mildly to moderately enlarged IMPRESSION: Mid right lung is mildly hazy which may indicate inflammation or pneumonia
--- NOTE | 2023-07-20 20:22 | P.HP ---
Certification for Inpatient Patient admitted to: Inpatient With expected LOS: <2 Midnights Patient will require the following post-hospital care: None Practitioner: I am a practitioner with admitting privileges, knowledge of patient current condition, hospital course, and medical plan of care. Services: Services provided to patient in accordance with Admission requirements found in Title 42 Section 412.3 of the Code of Federal Regulations Patient History Date of Service: 07/20/23 Reason for admission: Chest pain History of Present Illness: 62-year-old male with past medical history of Hypertension, DM, aortic aneurysm, Atrial fibrillation , never previously on anticoagulation, COPD, Aortic aneurysm previously followed with cardiology at [place], reports not adherent with follow-up since the last several months due to financial issues; developed substernal chest pain radiating to both sides of the chest since earlier this morning(over 10 hours), aching, not associated with palpitation. Patient admitted to shortness of breath worse on exertion. He denies any history of cardiac arrest event. He states he has been unable to follow-up with his splunk architect but has been compliant with his medication. He states he is taking his lisinopril HCTZ religiously. He has gained a lot of weight in the last 3 months due to some job-related stress. His blood pressure at home has been running in the 160s systolic breath over the last 3 days blood pressure has been mainly in the 190s to 200s. He was previously on Coreg but was taken off due to his intermittent bradycardia. He states his splunk architect has previously talked about anticoagulation but decided to hold off He came to the emergency room today because of uncontrolled blood pressure as well as new chest pain and exertional dyspnea labs work shows normal troponin , EKG shows atrial fib with HR 40-60s . CT shows 3.7cm right patchy pneumonia as well as 4.5 cm thoracic aortic aneurysm , wbc is normal with no shoft , BMP was unremarkable . He has been admitted for complicated right pneumonia Allergies codeine Allergy (Verified 03/16/17 15:37) vomiting morphine Allergy (Verified 03/16/17 15:37) vomiting Penicillins Allergy (Verified 11/29/13 02:02) unknown sour cream Allergy (Uncoded 11/29/13 02:02) unknown Home Medications: Lisinopril/Hydrochlorothiazide [Zestoretic 20-25 mg Tablet] 2 tab PO DAILY 03/15/17 carvediloL [Coreg*] 6.25 mg PO BID 03/16/17 Albuterol Neb [Proventil 0.083% Neb Soln] 2.5 mg NEB Q4HP PRN #60 amp 03/17/17 Arformoterol Tartrate [Brovana] 15 mcg NEB BIDRESP #60 vial.neb 03/17/17 Azithromycin Tab [Zithromax*] 250 mg PO DAILY #4 tab 03/17/17 Cefuroxime Axetil [Cefuroxime] 500 mg PO BID #14 tab 03/17/17 Nicotine [Nicoderm*] 21 mg TD DAILY #30 patch.td24 03/17/17 predniSONE [Deltasone] 40 mg PO DAILY #5 tab 03/17/17 - Past Medical/Surgical History Diabetic: No -: HTN -: Cirrhosis -: Hepatitis C -: Inguinal Hernia -: Anxiety -: Sinus Problems -: COPD -: sinus sx -: hernia repair - Social History Smoking Status: Former smoker Alcohol use: No CD- Drugs: No Caffeine use: Yes Place of Residence: Home Review of Systems 10-point ROS is otherwise unremarkable Respiratory: SOB with Excertion Cardiovascular: Chest Pain Physical Examination - Physical Exam General: Alert, In no apparent distress, Oriented x3, Obese HEENT: Atraumatic, Normocephalic, PERRLA Neck: 2+ carotid pulse no bruit, JVD not distended Respiratory: Clear to auscultation bilaterally, Normal air movement Cardiovascular: Normal pulses, Regular rate/rhythm, Normal S1 S2 Gastrointestinal: Normal bowel sounds, Soft and benign, Non-distended Musculoskeletal: No clubbing, No swelling Integumentary: No rashes, No breakdown Neurological: Normal speech, Normal strength at 5/5 x4 extr, Normal tone, Sensation intact - Studies Laboratory Data (last 24 hrs) 07/20/23 07/20/23 07/20/23 17:53 17:53 17:53 WBC 10.60 Hgb 15.0 Hct 43.2 Plt Count 194 PT 12.8 H INR 1.17 Sodium 136 Potassium 3.9 BUN 14 Creatinine 0.89 Glucose 83 Magnesium 1.9 Assessment and Plan - Plan Impression Atypical chest pain Right pneumoniacommunity-acquired History of atrial fibrillation with intermittent bradycardia Hypertensionuncontrolled History of COPD History of hepatitis C Thoracic aortic aneurysmstable Plan Will admit patient to inpatient status Start empirical antibiotics with cefepime Blood culture x 2 Start guaifenesin/as needed nebulizer/Tessalon as needed for cough Continue lisinopril-HCTZ, add isosorbide for BP control Place in telemetry Cardiology consult in a.m. Need for anticoagulation discussed with him Follow serial sets of cardiac enzymes x 3 Lovenox therapeutic dose every 12 hour for now may need start Eliquis if able to afford Case management to help with outpatient medications - Advance Directives Does patient have a Living Will: No Does patient have a Durable POA for Healthcare: No
--- NOTE | 2023-07-20 20:26 | EDPHYS ---
Physician Documentation [facility] Name: Ander Jean Age: 62 yrs Sex: Male : 1960 Arrival Date: 07/20/2023 Time: 17:18 Bed 17 Private MD: ED Physician Jonah Falk HPI: 07/19 17:27 This 62 yrs old Male presents to ER via Unassigned with complaints of Chest Pressure, kb Shortness Of Breath, High Blood Pressure. 17:27 Pt is a 62 year old male who presents for hypertension that started 2-3 weeks ago. kb States he has an aneurysm so his BP is not supposed to be high. Reports chest tightness and shortness of breath that has been worse than normal and he woke up with stabbing pain to the chest last night. . Historical: - Allergies: 17:29 Codeine; aa5 17:29 PENICILLINS; aa5 - PMHx: 17:29 Aneurysm; COPD; diabetes mellitus; Hypertension; aa5 - Immunization history:: Adult Immunizations unknown. - Infectious Disease History:: Denies. - Social history:: Smoking status: Patient denies any tobacco usage or history of. ROS: 19:01 Constitutional: As per HPI kb Exam: 19:01 Constitutional: This is a well developed, well nourished patient who is awake, alert, kb and in no acute distress. Head/Face: Normocephalic, atraumatic. ENT: Moist Mucous membranes Cardiovascular: Regular rate Respiratory: Respirations even and unlabored. No increased work of breathing. Talking in full sentences Abdomen/GI: Soft, non-tender. No distention Skin: Warm, dry with normal turgor. Normal color. MS/ Extremity: Pulses equal, no cyanosis. Neurovascular intact. Full, normal range of motion. Neuro: Awake and alert, GCS 15, oriented to person, place, time, and situation. Moves all extremities. Normal gait. 20:29 ECG was reviewed by the Attending Physician. Vital Signs: 17:29 BP 191 / 88; Pulse 58; Resp 20 S; Temp 97.9(TE); Pulse Ox 96% on R/A; Weight 154.22 kg aa5 (R); Height 6 ft. 3 in. (R); 18:00 BP 151 / 85; Pulse 56; Resp 18; Pulse Ox 100% ; cp4 19:00 BP 169 / 82; Pulse 56; Resp 18; Pulse Ox 97% ; cp4 20:00 BP 156 / 80; Pulse 60; Resp 18; Pulse Ox 97% ; cp4 23:06 BP 162 / 84; Pulse 65; Resp 17 S; Temp 97.4; Pulse Ox 98% on R/A; lg3 17:29 Body Mass Index 42.50 (154.22 kg, 190.5 cm) aa5 MDM: 17:24 Patient medically screened. kb 19:25 Data reviewed: vital signs, nurses notes. kb 20:28 Differential diagnosis: abnormal EKG, acute myocardial infarction, coronary artery kb disease congestive heart failure pneumonia. Consideration of Admission/Observation Patient was admitted/placed on observation. Escalation of care including admission/observation considered. Management of patient was discussed with the following: Hospitalist: Dr Alicia accepts pt for admission. Counseling: I had a detailed discussion with the patient and/or guardian regarding the historical points, exam findings, and any diagnostic results supporting the discharge/admit diagnosis, lab results, radiology results, the need for further work-up and treatment in the hospital. 07/19 17:34 Order name: Basic Metabolic Panel; Complete Time: 18:35 kb 07/19 17:34 Order name: CBC with Diff; Complete Time: 18:05 kb 07/19 17:34 Order name: Magnesium; Complete Time: 18:35 kb 07/19 17:34 Order name: NT PRO-BNP; Complete Time: 18:35 kb 07/19 17:34 Order name: PT-INR; Complete Time: 18:16 kb 07/19 17:34 Order name: Troponin HS; Complete Time: 18:35 kb 07/19 20:33 Order name: CBC with Automated Diff EDMS 07/19 20:33 Order name: CBC with Automated Diff EDMS 07/19 20:33 Order name: Comprehensive Metabolic Panel EDMS 07/19 20:33 Order name: Comprehensive Metabolic Panel EDWY 07/19 20:33 Order name: Lipid Profile EDMS 07/19 20:33 Order name: Lipid Profile EDMS 07/19 20:33 Order name: Troponin High Sensitivity EDMS 07/19 20:33 Order name: Troponin High Sensitivity EDMS 07/19 20:33 Order name: Troponin High Sensitivity EDMS 07/19 20:33 Order name: Troponin High Sensitivity EDMS 07/19 17:34 Order name: XRAY Chest (1 view); Complete Time: 19:24 kb 07/19 17:35 Order name: CT Aorta for Dissection; Complete Time: 19:12 kb 07/19 17:34 Order name: Cardiac monitoring; Complete Time: 17:35 kb 07/19 17:34 Order name: EKG - Nurse/Tech; Complete Time: 17:42 kb 07/19 17:34 Order name: IV Saline Lock; Complete Time: 17:58 kb 07/19 17:34 Order name: Labs collected and sent; Complete Time: 17:36 kb 07/19 17:34 Order name: O2 Per Protocol; Complete Time: 17:36 kb 07/19 17:34 Order name: O2 Sat Monitoring; Complete Time: 17:36 kb EC:29 Rate is 62 beats/min. Rhythm is irregularly irregular. QRS [place] is Normal. QRS interval kb is normal at 82 msec. QT interval is normal at 375 msec. Administered Medications: 20:44 Drug: Zithromax IVPB 500 mg IVPB once over 1 hrs; mix in 250 mL NS Route: IVPB; Infused cp4 Over: 1 hrs; Site: right antecubital; Disposition Summary: 07/20/23 20:26 Hospitalization Ordered Notes: Hospitalization Status: Observation kb Provider: Claudy Alicia [facility] kb Condition: Stable kb Problem: new kb Symptoms: are unchanged kb Bed/Room Type: [facility] Room Assignment: [facility](07/20/23 22:29) Diagnosis - Chest pain, unspecified kb - Pneumonia, unspecified organism kb Forms: - Medication Reconciliation Form kb - SBAR form kb - Leadership Thank You Letter kb Signatures: Dispatcher [employer] EDRowan Donnelly, PAPER AND PULP MILL WORKER-C PAPER AND PULP MILL WORKER-Alondra Garcia RN RN aa5 Lorrie Dukes RN RN Becka Quezada cp4 Corrections: (The following items were deleted from the chart) 17:35 17:35 BASIC METABOLIC PANEL+C.LAB.BRZ ordered. EDMS EDMS 17:35 17:35 CBC+H.LAB.BRZ ordered. EDMS EDMS 17:35 17:35 MAGNESIUM+C.LAB.BRZ ordered. EDMS EDMS 17:35 17:35 PROBNP+C.LAB.BRZ ordered. EDMS EDMS 17:35 17:35 PROTIME (+INR)+COAG.LAB.BRZ ordered. EDMS EDMS 17:35 17:35 Troponin High Sensitivity+C.LAB.BRZ ordered. EDMS EDMS 17:35 17:35 Chest Single View+RAD.RAD.BRZ ordered. EDMS EDMS 22:29 20:26 kb cg
--- NOTE | 2023-07-20 20:26 | ER ---
Nurse's Notes [facility] Name: Ander Jean Age: 62 yrs Sex: Male : 1960 Arrival Date: 07/20/2023 Time: 17:18 Bed 17 Private MD: Diagnosis: Chest pain, unspecified;Pneumonia, unspecified organism Presentation: 07/19 17:29 Chief complaint: Patient states: high blood pressure x 3 weeks, pt states "I am only aa5 taking lisinopril, they took me off carvedilol because my heart rate was low". Reports chest tightness and SOB. 17:29 Acuity: THANG 2 aa5 17:29 Coronavirus screen: At this time, the client does not indicate any symptoms associated aa5 with coronavirus-19. Ebola Screen: Patient denies travel to an Ebola-affected area in the 21 days before illness onset. Initial Sepsis Screen: Does the patient meet any 2 criteria? No. Patient's initial sepsis screen is negative. Does the patient have a suspected source of infection? No. Patient's initial sepsis screen is negative. Risk Assessment: Do you want to hurt yourself or someone else? Patient reports no desire to harm self or others. 17:29 Method Of Arrival: Ambulatory aa5 17:29 Onset of symptoms was June 2023. aa5 Triage Assessment: 19:38 General: Appears uncomfortable, Behavior is calm, cooperative, appropriate for age. cp4 Pain: Complains of pain in chest. Cardiovascular: Reports chest pain. Historical: - Allergies: 17:29 Codeine; aa5 17:29 PENICILLINS; aa5 - PMHx: 17:29 Aneurysm; COPD; diabetes mellitus; Hypertension; aa5 - Immunization history:: Adult Immunizations unknown. - Infectious Disease History:: Denies. - Social history:: Smoking status: Patient denies any tobacco usage or history of. Screenin:00 [facility] ED Fall Risk Assessment (Adult) History of falling in the last 3 months, cp4 including since admission No falls in past 3 months (0 pts) Confusion or Disorientation No (0 pts) Intoxicated or Sedated No (0 pts) Impaired Gait No (0 pts) Mobility Assist Device Used No (0 pt) Altered Elimination No (0 pt) Score/Fall Risk Level 0 - 2 = Low Risk Oriented to surroundings, Maintained a safe environment, Assessed \\T\\ reinforced patient's understanding of fall precautions, Hourly rounding (assess needs \\T\\ fall precautionary measures) done. Abuse screen: Denies threats or abuse. Nutritional screening: No deficits noted. Tuberculosis screening: No symptoms or risk factors identified. Assessment: 18:00 General: Appears uncomfortable, Behavior is calm, cooperative, appropriate for age. cp4 Pain: Pain does not radiate. Pain began gradually. Cardiovascular: Reports chest pain. 20:53 Cardiovascular: Rhythm is atrial fibrillation. cp4 23:07 Reassessment: Patient appears in no apparent distress at this time. No changes from 3 previously documented assessment. Patient and/or family updated on plan of care and expected duration. Pain level reassessed. Patient is alert, oriented x 3, equal unlabored respirations, skin warm/dry/pink. 23:07 General: Pt refusing gown at this time. PT states he will put one on once in his room. lg3 nurse notified. . Vital Signs: 17:29 BP 191 / 88; Pulse 58; Resp 20 S; Temp 97.9(TE); Pulse Ox 96% on R/A; Weight 154.22 kg aa5 (R); Height 6 ft. 3 in. (R); 18:00 BP 151 / 85; Pulse 56; Resp 18; Pulse Ox 100% ; cp4 19:00 BP 169 / 82; Pulse 56; Resp 18; Pulse Ox 97% ; cp4 20:00 BP 156 / 80; Pulse 60; Resp 18; Pulse Ox 97% ; cp4 23:06 BP 162 / 84; Pulse 65; Resp 17 S; Temp 97.4; Pulse Ox 98% on R/A; lg3 17:29 Body Mass Index 42.50 (154.22 kg, 190.5 cm) aa5 ED Course: 17:21 Patient arrived in ED. im 17:24 Rowan [facility]anez [facility]-C [facility] kb 17:24 Jonah Falk MD is Attending Physician. kb 17:29 Arm band placed on. aa5 17:30 Triage completed. aa5 17:35 Becka Koenig is Primary Nurse. cp4 18:00 Bed in low position. Call light in reach. Side rails up X 1. Provided Education on:. cp4 Client placed on continuous cardiac and pulse oximetry monitoring. NIBP monitoring applied. playground monitor on. 18:00 No provider procedures requiring assistance completed. cp4 18:04 Initial lab(s) drawn, by me, sent to lab. EKG done. Inserted saline lock: 20 gauge in jg11 right antecubital area, using aseptic technique. Blood collected. Missed attempt(s): 20 gauge in left antecubital area. 18:15 XRAY Chest (1 view) In Process Unspecified. EDMS 18:45 CT Aorta for Dissection In Process Unspecified. EDMS 19:55 O2 via room air. cp4 20:26 Claudy Alicia MD is Hospitalizing Provider. kb 23:07 Patient admitted, IV remains in place. lg3 Administered Medications: 20:44 Drug: Zithromax IVPB 500 mg IVPB once over 1 hrs; mix in 250 mL NS Route: IVPB; Infused cp4 Over: 1 hrs; Site: right antecubital; Medication: 18:00 VIS not applicable for this client. cp4 Outcome: 20:26 Decision to Hospitalize by Provider. kb 23:06 Admitted to Med/surg accompanied by tech, via wheelchair, room 231, lg3 23:06 Condition: stable 23:06 Instructed on the need for admit, 23:08 Patient left the ED. lg3 Signatures: Dispatcher [employer] EDMS Rowan Yanez, IMAGING SCHEDULERKory IMAGING SCHEDULER-Alondra Garcia, RN RN aa5 Karen Alatorre RN RN lg3 Richa Vitale Christina cp4 Luis Alfredo Hayward jg11 Corrections: (The following items were deleted from the chart) 17:31 17:29 Acuity: THANG 3 aa5 aa5
[2023-07-20] MEDS: FUROSEMIDE 40 MG/4 ML VIAL IV ONE (20:28)
[2023-07-20] MEDS ORDERED: NA CHLORIDE 0.9% 250 ML ONE (20:38)
[2023-07-20] MEDS ORDERED: AZITHROMYCIN 500 MG INJ IVPB ONE (20:38)
[2023-07-20] MEDS: GLUCAGON 1 MG/VIAL IM SCH (21:26)
[2023-07-20] MEDS ORDERED: D50W 25 GM/50 ML SYRINGE IV PRN (21:26)
[2023-07-20] MEDS ORDERED: D10W 125 ML IV PRN (21:33)
[2023-07-20 23:33] VITALS: BMI 42.3
[2023-07-21] MEDS: ENOXAPARIN 60 MG/0.6 ML SQ SCH (00:05)
[2023-07-21] MEDS: GUAIFENESIN 600 MG SA TAB PO SCH (00:06)
[2023-07-21] MEDS: CEFEPIME 1 GM in NA CHLORIDE 0.9% 100 ML IV SCH (00:06)
[2023-07-21] MEDS: FAMOTIDINE 20 MG TAB PO SCH (00:06)
[2023-07-21] MEDS: MORPHINE 2 MG/ML SYR IV PRN (00:07)
[2023-07-21] MEDS: HYDRALAZINE HCL 20 MG/ML VIAL IV PRN (00:08)
[2023-07-21] MEDS: ISOSORBIDE MONO SR 60 MG TAB PO SCH ×2 (00:17→12:48)
[2023-07-21] MEDS: INSULIN REGULAR (HUMAN) 100 UNIT/ML SQ SCH (00:26)
[2023-07-21] MEDS: ALBUTEROL 2.5 MG/3 ML NEB SOL NEB SCH (00:41)
[2023-07-21] MEDS: IPRATROPIUM BROM 0.5MG/2.5ML NEB SCH (00:41)
[2023-07-21] MEDS: LORAZEPAM 0.5 MG TABLET PO PRN (02:27)
[2023-07-21 04:46] LABS: Absolute Eosinophils 0.3 K/uL (0-0.5); Absolute Monocytes 0.8 K/uL (0.1-1.3); Absolute Neutrophil 7.6 K/uL (1.8-8.0); Basophils % 0.4 % (0-1.3); Eosinophils % 2.6 % (0-4.4); Hematocrit 42.6 % (39.6-49.0); Hemoglobin 14.3 g/dL (13.6-17.9); Lymphocytes % 25.6 % (15.3-44.8); MCH 32.4 pg (27.0-35.0); MCHC 33.5 g/dL (32.0-36.0); MCV 96.6 fL (80-100); MPV 7.6 fL (7.6-11.3); Neutrophils % 64.4 % (41.7-73.7); Nucleated RBC Absolute Count 0.1 (0-0); Nucleated Red Blood Cells % 1.2 % (0-0); Platelets 209 thou/uL (152-406); RBC Red Blood Cell Count 4.41 M/uL (4.33-5.43); Red Cell Distribution Width 13.4 % (12.1-15.2)
[2023-07-21 05:11] LABS: Albumin/Globulin Ratio 0.9 (1.1-1.8); Anion Gap 7.2 mEq/L (5.0-15.0); Bilirubin Total 0.6 mg/dL (0.2-1.0); Globulin 3.4 g/dL (2.3-3.5); Potassium 3.2 mEq/L (3.5-5.1); Protein, Total 6.4 g/dL (6.4-8.2); Troponin High Sensitivity 11.7 pg/mL (<58.9)
[2023-07-21] MEDS: AMLODIPINE 5 MG TAB PO ONE (05:19)
[2023-07-21] MEDS ORDERED: ALBUTEROL 2.5 MG/3 ML NEB SOL IH SCH (06:00)
[2023-07-21] MEDS ORDERED: HYDROCHLOROTHIAZIDE PO SCH (09:00)
[2023-07-21] MEDS ORDERED: LISINOPRIL PO SCH (09:00)
[2023-07-21] MEDS: lisinopriL 20 MG TAB PO SCH (09:32)
[2023-07-21] MEDS: hydroCHLOROthiazide 25 MG TAB PO SCH (09:32)
[2023-07-21] MEDS: ASPIRIN EC 81 MG TAB PO SCH (09:33)
[2023-07-21] MEDS: METFORMIN HCL 500 MG TAB PO SCH (09:33)
[2023-07-21] MEDS: GLIMEPIRIDE 2 MG TABLET PO SCH (09:33)
[2023-07-21] MEDS: ACETAMINOPHEN 500 MG TAB PO PRN (09:33)
--- NOTE | 2023-07-21 12:14 | P.PN ---
Subjective Date of Service: 07/21/23 Chief Complaint: Chest pain Pt is resting comfortably in bed. He complains of cough and SOB. CT chest shows a 4.5 centimeter ascending thoracic aortic aneurysm and a 3.7 centimeter ground-glass opacity right lung may be inflammatory. No other complaints. Review of Systems General: Unremarkable Eyes: Unremarkable ENT: Unremarkable Respiratory: Cough, SOB with Excertion Cardiovascular: Unremarkable Gastrointestinal: Unremarkable Genitourinary: Unremarkable Musculoskeletal: Unremarkable Neurological: Unremarkable Lymphatics: Unremarkable Physical Examination - Vital Signs Temperature: 97.3 F Blood Pressure: 146/73 Pulse: 67 Respirations: 18 Pulse Ox (%): 95 - Physical Exam General: Alert, In no apparent distress, Oriented x2 HEENT: Atraumatic, Normocephalic, PERRLA Neck: Supple, 2+ carotid pulse no bruit Respiratory: Clear to auscultation bilaterally, Normal air movement, Diminished Cardiovascular: No edema, Normal pulses, Regular rate/rhythm, Normal S1 S2 Capillary refill: <2 Seconds Gastrointestinal: Normal bowel sounds, Soft and benign, Non-distended Musculoskeletal: No clubbing, No swelling Integumentary: No rashes, No breakdown, No significant lesion Neurological: Normal speech, Normal strength at 5/5 x4 extr, Normal tone Lymphatics: No axilla or inguinal lymphadenopathy - Studies Laboratory Data (last 24 hrs) 07/20/23 07/20/23 07/20/23 17:53 17:53 17:53 WBC 10.60 Hgb 15.0 Hct 43.2 Plt Count 194 PT 12.8 H INR 1.17 Sodium 136 Potassium 3.9 BUN 14 Creatinine 0.89 Glucose 83 Magnesium 1.9 Assessment And Plan - Plan Atypical chest pain: Will r/o ACS. troponin is 8 -> 8.6 -> 11.7. Will trend troponin Q6h. Likely pleuritic. Will f/u Echo Right lower lobe pneumonia: Per CT chest. Will continue cefepime and f/u blood cx. History of atrial fibrillation with intermittent bradycardia: Will continue telemetry. No Eliquis due to thoracic aneurysm. Hypokalemia: k is 3.2. Will replete and monitor. Hypertension: Will continue home meds. History of COPD: Stable. Will continue prn duoneb and oxygen History of hepatitis C: Thoracic aortic aneurysm: CT chest shows 4.5cm thoracic aortic aneurysm. It is stable DVT ppx: SCD Dispo: Pending hospital course.
--- NOTE | 2023-07-21 13:05 | P.CNS ---
Date of Consult: 07/21/23 Chief Complaint: Chest pain History of Present Illness: Patient with PMH of AF, HTN, AAA presented with worsening Chest pain for the last week, pressure in nature assocaited with SOB, no palpitation, no syncope. Allergies codeine Allergy (Verified 03/16/17 15:37) vomiting Penicillins Allergy (Verified 11/29/13 02:02) unknown sour cream Allergy (Uncoded 11/29/13 02:02) unknown Home Medications: Lisinopril/Hydrochlorothiazide [Zestoretic 20-25 mg Tablet] 2 tab PO DAILY 03/15/17 Albuterol Sulfate [Albuterol Sulfate Hfa] 2 puff IH Q6HP PRN 07/21/23 Atorvastatin Calcium [Lipitor] 10 mg PO BEDTIME 07/21/23 Glimepiride 2 mg PO ACB 07/21/23 Ipratropium [place] 2.5 ml NEB TID 07/21/23 Ipratropium/Albuterol Sulfate [Iprat-Albut 0.5-3(2.5) mg/3 ml] 3 ml IH Q6HR 07/21/23 Metformin HCl 1,000 mg PO BREAKFAST 07/21/23 Montelukast [Singulair] 10 mg PO BEDTIME 07/21/23 - Past Medical/Surgical History Diabetic: No -: HTN -: Cirrhosis -: Hepatitis C -: Inguinal Hernia -: Anxiety -: Sinus Problems -: COPD -: sinus sx -: hernia repair - Social History Smoking Status: Current every day smoker Alcohol use: No CD- Drugs: No Caffeine use: Yes Place of Residence: Home Review of Systems 10-point ROS is otherwise unremarkable Physical Examination Temp Pulse Resp BP Pulse Ox 97.3 F 67 18 146/73 H 95 07/21/23 12:41 07/21/23 12:41 07/21/23 12:41 07/21/23 12:41 07/21/23 12:41 General: Alert, Oriented x3 HEENT: Atraumatic Neck: Supple Respiratory: Clear to auscultation bilaterally Cardiovascular: No edema, Normal S1 S2 Gastrointestinal: Normal bowel sounds Laboratory Data (last 24 hrs) 07/20/23 07/20/23 07/20/23 17:53 17:53 17:53 WBC 10.60 Hgb 15.0 Hct 43.2 Plt Count 194 PT 12.8 H INR 1.17 Sodium 136 Potassium 3.9 BUN 14 Creatinine 0.89 Glucose 83 Magnesium 1.9 - Problems (1) Chest pain Current Visit: Yes Status: Acute Plan: patient with multiple risk factors and angina will schedule for coronary angiogram sunday. (2) HTN (hypertension) Current Visit: Yes Status: Acute Plan: better controlled now Continue Lisinopril 40 mg daily Continue HCTZ 50 mg daily Continue Imdur 30 mg daily Patient can not take Coreg due to reported bradycardia. get renal Artery duplex US. (3) Ascending aortic aneurysm Current Visit: Yes Status: Acute Plan: CT done and it is 4.5 cm in size. Control BP and HR.
[2023-07-21] MEDS: MONTELUKAST 10 MG TAB PO SCH (20:27)
[2023-07-21] MEDS: ATORVASTATIN 10 MG TAB PO SCH (20:27)
--- NOTE | 2023-07-22 09:34 | P.PN ---
Subjective Date of Service: 07/22/23 Chief Complaint: Chest pain Subjective: Tolerating diet (c/o leg pain bilaterally, headache) <Chloe Bergmanlai Anton - Last Filed: 07/22/23 09:34> Date of Service: 07/22/23 <Elizabeth Velasco C - Last Filed: 07/22/23 11:57> Review of Systems 10-point ROS is otherwise unremarkable General: As per HPI Respiratory: As per HPI Cardiovascular: As per HPI Neurological: As per HPI <Chloe Bergmanlai Anton - Last Filed: 07/22/23 09:34> Physical Examination - Vital Signs Temperature: 97.3 F Blood Pressure: 140/84 Pulse: 76 Respirations: 18 Pulse Ox (%): 95 - Physical Exam General: Alert, In no apparent distress, Oriented x3, Obese HEENT: Atraumatic, Normocephalic Neck: 2+ carotid pulse no bruit Respiratory: Normal air movement Cardiovascular: No edema, Normal pulses, Irregular heart rate/rhythm Capillary refill: <2 Seconds Gastrointestinal: Soft and benign Musculoskeletal: No clubbing Integumentary: No rashes Neurological: Normal speech, Normal tone Lymphatics: No axilla or inguinal lymphadenopathy External genitalia: Deferred Rectal: Deferred <PachecoShruthilai Anton - Last Filed: 07/22/23 09:34> Assessment And Plan - Plan Assessment And Plan - Plan Atypical chest pain: Will r/o ACS. troponin is 8 -> 8.6 -> 11.7. Will trend troponin Q6h. Dr. Jose doan following, will take to dental laboratory worker Saturday 07/22 Right lower lobe pneumonia: Per CT chest. Will continue cefepime and f/u blood cx. History of atrial fibrillation with intermittent bradycardia: Will continue telemetry. No Eliquis due to thoracic aneurysm. Hypokalemia: k is 3.2. Will replete and monitor. Hypertension: Lisinopril 40mg po daily HCTZ 50mg po daily Imdur 30mg po daily Renal artery US per cards rec. History of COPD: Will continue prn duoneb and oxygen History of hepatitis C: Thoracic aortic aneurysm: CT chest shows 4.5cm thoracic aortic aneurysm. It is stable DVT ppx: SCD Dispo: Pending hospital course. <Shruthi Bergman - Last Filed: 07/22/23 09:34> - Plan Pt seen and examined. I agree with the note by the CONTROL VALVE MECHANIC. Cardiology will do cardiac cath tomorrow. Will f/u Echo. Continue HCTZ, imdur and lisinopril. No coreg. Will give colchicine for gout pain. Will check uric acid level. <Elizabeth Velasco C - Last Filed: 07/22/23 11:57>
[2023-07-22 09:41] LABS: Absolute Basophils 0.1 K/uL (0-0.5); Absolute Eosinophils 0.3 K/uL (0-0.5); Absolute Lymphocytes (CBC) 1.9 K/uL (0.7-4.9); Absolute Monocytes 0.6 K/uL (0.1-1.3); Absolute Neutrophil 4.7 K/uL (1.8-8.0); Basophils % 1.3 % (0-1.3); Eosinophils % 4.1 % (0-4.4); Hematocrit 41.1 % (39.6-49.0); Hemoglobin 14.2 g/dL (13.6-17.9); Lymphocytes % 24.9 % (15.3-44.8); MCHC 34.4 g/dL (32.0-36.0); MPV 6.8 fL (7.6-11.3); Monocytes % 7.8 % (3.3-12.3); Neutrophils % 61.9 % (41.7-73.7); Nucleated Red Blood Cells % 0.1 % (0-0); Platelets 195 thou/uL (152-406); RBC Red Blood Cell Count 4.29 M/uL (4.33-5.43); Red Cell Distribution Width 13.5 % (12.1-15.2)
[2023-07-22 09:54] LABS: Anion Gap 6.5 mEq/L (5.0-15.0); Potassium 3.5 mEq/L (3.5-5.1)
[2023-07-22] MEDS: MAGNESIUM OXIDE 400 MG TAB PO ONE (09:55)
[2023-07-22] MEDS: COLCHICINE 0.6 MG TAB PO SCH (12:12)
--- NOTE | 2023-07-22 12:25 | P.PN ---
Subjective Date of Service: 07/22/23 Chief Complaint: Chest pain Subjective: No new changes Review of Systems 10-point ROS is otherwise unremarkable Physical Examination - Vital Signs Temperature: 97.3 F Blood Pressure: 140/84 Pulse: 76 Respirations: 18 Pulse Ox (%): 95 - Physical Exam General: Alert, Oriented x3 HEENT: Atraumatic Neck: Supple Respiratory: Clear to auscultation bilaterally Cardiovascular: No edema, Normal S1 S2 Gastrointestinal: Normal bowel sounds Assessment And Plan - Current Problems (Diagnosis) (1) Chest pain Current Visit: Yes Status: Acute Plan: patient with multiple risk factors and angina NPO after midnight for coronary angiogram sunday. (2) HTN (hypertension) Current Visit: Yes Status: Acute Plan: better controlled now Continue Lisinopril 40 mg daily Continue HCTZ 50 mg daily Continue Imdur 30 mg daily Patient can not take Coreg due to reported bradycardia. get renal Artery duplex US. (3) Ascending aortic aneurysm Current Visit: Yes Status: Acute Plan: CT done and it is 4.5 cm in size. Control BP and HR.
--- NOTE | 2023-07-22 13:10 | RAD REPORT ---
EXAM DESCRIPTION: US - Renal Ultrasound-Complete - 07/22/2023 12:05 pm CLINICAL HISTORY: Hypertension organs and COMPARISON: None FINDINGS: The right kidney measures 13 cm with a normal echotexture. The left kidney measures 13 cm with a normal echotexture. Hydronephrosis is not seen. No gross abnormality of bladder IMPRESSION: Unremarkable renal ultrasound.
[2023-07-23 06:43] LABS: Absolute Basophils 0.1 K/uL (0-0.5); Absolute Eosinophils 0.3 K/uL (0-0.5); Absolute Lymphocytes (CBC) 2.3 K/uL (0.7-4.9); Absolute Monocytes 0.7 K/uL (0.1-1.3); Absolute Neutrophil 5.6 K/uL (1.8-8.0); Basophils % 0.7 % (0-1.3); Eosinophils % 3.4 % (0-4.4); Hematocrit 45.7 % (39.6-49.0); Hemoglobin 15.7 g/dL (13.6-17.9); Lymphocytes % 25.3 % (15.3-44.8); MCHC 34.4 g/dL (32.0-36.0); MPV 7.1 fL (7.6-11.3); Monocytes % 7.9 % (3.3-12.3); Neutrophils % 62.7 % (41.7-73.7); Nucleated Red Blood Cells % 0.3 % (0-0); Platelets 215 thou/uL (152-406); RBC Red Blood Cell Count 4.76 M/uL (4.33-5.43); Red Cell Distribution Width 13.4 % (12.1-15.2)
[2023-07-23 06:53] LABS: Albumin 3.7 g/dL (3.4-5.0); Albumin/Globulin Ratio 0.9 (1.1-1.8); Anion Gap 6.5 mEq/L (5.0-15.0); Bilirubin Total 0.8 mg/dL (0.2-1.0); Globulin 3.9 g/dL (2.3-3.5); Potassium 3.5 mEq/L (3.5-5.1); Protein, Total 7.6 g/dL (6.4-8.2)
[2023-07-23] MEDS ORDERED: HEPA 1000U/500MLS 1,000 UNIT/500 ML BAG IV ONE (06:53)
[2023-07-23] MEDS ORDERED: LIDOCAINE 1% 20 ML MDV ONE ×2 (06:53→11:06)
[2023-07-23] MEDS ORDERED: NITROGLYCERIN/D5W 50 MG/250 ML BTL IV ONE (06:54)
[2023-07-23] MEDS ORDERED: ATROPINE SULF 1 MG/10 ML SYR IV ONE ×2 (06:54→11:43)
[2023-07-23] MEDS ORDERED: VERAPAMIL HCL 10 MG/4 ML VIAL IV ONE ×2 (06:54→11:42)
[2023-07-23] MEDS ORDERED: FENTANYL CITR 100 MCG/2 ML ONE ×2 (06:54→11:43)
[2023-07-23] MEDS ORDERED: MIDAZOLAM HCL 2 MG/2 ML INJ ONE ×3 (06:54→12:35)
[2023-07-23] MEDS ORDERED: TICAGRELOR 90 MG TABLET PO ONE ×2 (06:55→11:43)
[2023-07-23] MEDS ORDERED: CLOPIDOGREL 75 MG TABLET ONE ×2 (06:55→11:44)
[2023-07-23] MEDS ORDERED: ASPIRIN 325 MG TAB ONE (06:55)
[2023-07-23] MEDS ORDERED: HEPARIN 5000 UNIT/ML 1 ML VIAL ONE ×2 (06:55→11:43)
[2023-07-23] MEDS ORDERED: HEPARIN 10,000 UNIT/10 ML VIAL IV ONE ×2 (06:56→11:43)
[2023-07-23] MEDS ORDERED: NA CHLORIDE 0.9% 500 ML ONE (07:14)
--- NOTE | 2023-07-23 07:44 | P.PN ---
Subjective Date of Service: 07/24/23 Chief Complaint: Chest pain Presented with chest pain, serial troponins negative, cardiology following Plan for cardiac cath 07/22 - Physical Exam General: Alert, In no apparent distress, Oriented x3, Obese HEENT: Atraumatic, Normocephalic Neck: 2+ carotid pulse no bruit Respiratory: Normal air movement Cardiovascular: No edema, Normal pulses, Irregular heart rate/rhythm Capillary refill: <2 Seconds Gastrointestinal: Soft and benign Musculoskeletal: No clubbing Integumentary: No rashes Neurological: Normal speech, Normal tone Lymphatics: No axilla or inguinal lymphadenopathy Review of Systems Per HPI Physical Examination - Vital Signs Temperature: 97.9 F Blood Pressure: 133/74 Pulse: 65 Respirations: 18 Pulse Ox (%): 96 Assessment And Plan - Plan Assessment And Plan Atypical chest pain: Will r/o ACS. troponin is 8 -> 8.6 -> 11.7. Will trend troponin Q6h. Dr. Jose doan following, will take to medical lab technologist Saturday 07/22 Right lower lobe pneumonia: Per CT chest. Will continue cefepime and f/u blood cx. Blood cultures negative, urine cultures negative History of atrial fibrillation with intermittent bradycardia: Will continue telemetry. No Eliquis due to thoracic aneurysm. Hypokalemia: k is 3.2. Will replete and monitor. Hypertension: Lisinopril 40mg po daily HCTZ 50mg po daily Imdur 30mg po daily Renal artery US per cards rec. History of COPD: Will continue prn duoneb and oxygen History of hepatitis C: Thoracic aortic aneurysm: CT chest shows 4.5cm thoracic aortic aneurysm. It is stable DVT ppx: SCD Dispo: Pending hospital course. Discharge Plan: Home Critical Care: No Time Spent Managing PTS Care (In Minutes): 35
[2023-07-23] MEDS ORDERED: HEPA 1000U/500MLS 2,000 UNIT/1,000 ML BAG IV ONE (11:06)
[2023-07-23] MEDS ORDERED: NALOXONE 0.4 MG/ML VIAL ONE (11:44)
[2023-07-23] MEDS ORDERED: FLUMAZENIL 0.1 MG/ML (5 mL VIAL) IV ONE (11:44)
[2023-07-23] MEDS ORDERED: ONDANSETRON 4 MG/2 ML VIAL ONE (12:20)
[2023-07-23] MEDS: MORPHINE 4 MG/ML SYR IV PRN (22:25)
[2023-07-24] MEDS: KETOROLAC 30 MG/ML INJ IV ONE (00:32)
--- NOTE | 2023-07-24 00:36 | OP ---
Date of Procedure: 07/23/2023 Surgeon: Jorge Garcia Indication For Procedure: Unstable angina. Procedures Performed: 1.Left heart catheterization. 2.Selective coronary angiogram. Complications: None. Estimated Blood Loss: Less than 50 cc. Sedation Time: 40 minutes. Description Of Procedure: After risks, benefits, and alternatives were explained to the patient, the patient agreed to proceed with the procedure and signed informed consent. The patient was brought b [facility] to the laboratory miller, prepped and draped in sterile fashion. Time-out was performed. Sedation was ad ministered. The right radial artery access was obtained using ultrasound-guided micropuncture techni que. 6-[place]aced[place] sheath was advanced. [place] 4 catheter was advanced to the LV. LVEDP was obtained. P ullback did not show any gradient. The same catheter was used for selective coronary angiogram of th e left coronary system. Next, we tried to selectively engage the right coronary artery with [place] 4 catheter, was unable to do so, so that was exchanged with an AL1 catheter. The patient started havin g spasm, so right common femoral artery access was obtained using ultrasound-guided micropuncture raulito hnique. Next, we advanced an AL1 catheter to the aortic root, unable to engage the RCA. That was ex changed to an AR mod, which was unable also to selectively engage the RCA. At the end, the pigtail c atheter was advanced to the aortic root. Aortic root angiogram was done, which shows an RCA ostial C TO. Angio-Seal was used to close the right common femoral artery access and a TR band was used to cl ose the right radial access. Findings: 1.Left main is normal. 2.LAD is normal, gives a big septal with [id number] collaterals into the RCA. 3.Diagonal medium-size artery got an ostial 70% to 80% disease, then mild LI. 4.Left circumflex, mild LI. 5.RCA, ostial stump unable to engage against large septal collaterals with [id number] flow. Assessment And Plan: 1.Ostial right coronary artery chronic total occlusion with very good [id number] collaterals, not amenable to percutaneous coronary intervention. 2.Ostial diagonal disease that should be left for medical management as any intervention can jeopard ize left anterior descending. Plan will be to continue aggressive medical management for coronary ar magaly disease. DOMINGUEZ/MODL Voice ID: [id number] Report ID: [id number]
[2023-07-24 05:22] LABS: Absolute Basophils 0.1 K/uL (0-0.5); Absolute Eosinophils 0.3 K/uL (0-0.5); Absolute Lymphocytes (CBC) 2.2 K/uL (0.7-4.9); Absolute Monocytes 0.8 K/uL (0.1-1.3); Absolute Neutrophil 5.7 K/uL (1.8-8.0); Basophils % 1.1 % (0-1.3); Eosinophils % 3.4 % (0-4.4); Hematocrit 41.3 % (39.6-49.0); Hemoglobin 14.1 g/dL (13.6-17.9); Lymphocytes % 24.4 % (15.3-44.8); MCH 32.9 pg (27.0-35.0); MCHC 34.1 g/dL (32.0-36.0); MCV 96.4 fL (80-100); MPV 7.2 fL (7.6-11.3); Monocytes % 8.4 % (3.3-12.3); Neutrophils % 62.7 % (41.7-73.7); Platelets 186 thou/uL (152-406); RBC Red Blood Cell Count 4.29 M/uL (4.33-5.43); Red Cell Distribution Width 13.1 % (12.1-15.2)
[2023-07-24 07:29] LABS: Albumin 3.3 g/dL (3.4-5.0); Anion Gap 6.5 mEq/L (5.0-15.0); Phosphorus 4.1 mg/dL (2.5-4.9); Potassium 3.5 mEq/L (3.5-5.1)
--- NOTE | 2023-07-24 08:52 | P.DS ---
Admission Date: 07/20/23 Discharge Date: 07/24/23 Disposition: ROUTINE DISCHARGE Discharge Condition: FAIR Reason for Admission: Chest pain Brief History of Present Illness: 62-year-old male with past medical history of Hypertension, DM, aortic aneurysm, Atrial fibrillation , never previously on anticoagulation, COPD, Aortic aneurysm previously followed with cardiology at [facility], reports not adherent with follow-up since the last several months due to financial issues; developed substernal chest pain radiating to both sides of the chest since earlier this morning(over 10 hours), aching, not associated with palpitation. Patient admitted to shortness of breath worse on exertion. He denies any history of cardiac arrest event. 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 He states he is taking his lisinopril HCTZ religiously. He has gained a lot of weight in the last 3 months due to some job-related stress. His blood pressure at home has been running in the 160s systolic breath over the last 3 days blood pressure has been mainly in the 190s to 200s. He was previously on Coreg but was taken off due to his intermittent bradycardia. He states his jet handler has previously talked about anticoagulation but decided to hold off He came to the emergency room today because of uncontrolled blood pressure as well as new chest pain and exertional dyspnea labs work shows normal troponin , EKG shows atrial fib with HR 40-60s . CT shows 3.7cm right patchy pneumonia as well as 4.5 cm thoracic aortic aneurysm , wbc is normal with no shoft , BMP was unremarkable . He has been admitted for complicated right pneumonia - Physical Exam General: Alert, In no apparent distress, Oriented x3, Obese HEENT: Atraumatic, Normocephalic, PERRLA Neck: 2+ carotid pulse no bruit, JVD not distended Respiratory: Clear to auscultation bilaterally, Normal air movement Cardiovascular: Normal pulses, Regular rate/rhythm, Normal S1 S2 Gastrointestinal: Normal bowel sounds, Soft and benign, Non-distended Musculoskeletal: No clubbing, No swelling Integumentary: No rashes, No breakdown Neurological: Normal speech, Normal strength at 5/5 x4 extr, Normal tone, Sensation intact Hospital Course: 62-year-old male presented with atypical chest pain, was evaluated by cardiology. Serial troponins were negative. Was noted to have pneumonia and treated with IV antibiotics, nebs, oxygen. Improved, plan to follow-up with primary care outpatient for pneumonia. Follow-up with cardiology for atypical chest pain, severe CAD with medical management. Assessment Atypical chest pain evaluated by cardiology recommended medical management Pneumonia treated with antibiotics, nebulizers, finished antibiotics while inpatient History of COPD resume home medication-continue with previous home nebulizers, inhalers History of hepatitis C Hypokalemia treated with replenished electrolyte History of A-fib ablation, with intermittent bradycardia no Eliquis due to thoracic aneurysm thoracic aneurysm Left heart cath 07/22 Dr Garcia Assessment And Plan: 1. 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 2. Ostial diagonal disease that should be left for medical management as any intervention can jeopardize left anterior descending. Plan will be to continue aggressive medical management for coronary artery disease. Follow-up with Dr. Garcia, cardiology in 1-2 weeks Continue home medicines as previously prescribed GOAL: Clear understanding of disease process INSTRUCTIONS: Physician Discharge Instructions: -DC IV and DC home -Follow-up with PCP in 1 to 2 weeks -Please call Dr. Suarez at [phone] if any questions regarding hospital stay -Please call nursing station at [phone] if any nursing or medication questions -Return to the emergency room if symptoms worsen Diet: ADA, low sodium Activity: Fall precautions Vital Signs/Physical Exam: Temp Pulse Resp BP Pulse Ox 98.2 F 56 16 129/69 97 07/24/23 08:00 07/24/23 08:00 07/24/23 08:00 07/24/23 08:00 07/24/23 08:00 Laboratory Data at Discharge: WBC 9.10 thou/uL (4.3-10.9) 07/24/23 05:02 Hgb 14.1 g/dL (13.6-17.9) D 07/24/23 05:02 Hct 41.3 % (39.6-49.0) 07/24/23 05:02 Plt Count 186 thou/uL (152-406) 07/24/23 05:02 PT 12.8 SECONDS (9.5-12.5) H 07/20/23 17:53 INR 1.17 07/20/23 17:53 Sodium 135 mEq/L (136-145) L 07/24/23 06:58 Potassium 3.5 mEq/L (3.5-5.1) 07/24/23 06:58 BUN 14 mg/dL (7-18) 07/24/23 06:58 Creatinine 0.99 mg/dL (0.70-1.30) 07/24/23 06:58 Glucose 99 mg/dL (74-106) 07/24/23 06:58 Uric Acid 5.8 mg/dL (3.5-7.2) 07/22/23 09:32 Phosphorus 4.1 mg/dL (2.5-4.9) 07/24/23 06:58 Magnesium 2.0 mg/dL (1.6-2.4) 07/24/23 06:58 Total Bilirubin 0.8 mg/dL (0.2-1.0) 07/23/23 06:16 AST 33 U/L (15-37) 07/23/23 06:16 ALT 53 U/L (16-61) 07/23/23 06:16 Alkaline Phosphatase 72 U/L (45-117) 07/23/23 06:16 Triglycerides 166 mg/dL (<150) H 07/21/23 03:37 Cholesterol 137 mg/dL (<200) 07/21/23 03:37 HDL Cholesterol 34 mg/dL (40-60) L 07/21/23 03:37 Cholesterol/HDL Ratio 4.03 07/21/23 03:37 Home Medications: Albuterol Sulfate [Albuterol Sulfate Hfa] 2 puff IH Q6HP PRN 07/21/23 Glimepiride 2 mg PO ACB 07/21/23 Ipratropium [place] 2.5 ml NEB TID 07/21/23 Ipratropium/Albuterol Sulfate [Iprat-Albut 0.5-3(2.5) mg/3 ml] 3 ml IH Q6HR 07/21/23 Metformin HCl 1,000 mg PO BREAKFAST 07/21/23 Montelukast [Singulair*] 10 mg PO BEDTIME 07/21/23 Aspirin [Aspirin EC 81 MG] 81 mg PO DAILY #30 tab 07/24/23 Atorvastatin Calcium [Lipitor*] 10 mg PO BEDTIME 30 Days #30 tab 07/24/23 Colchicine [Colcrys *] 0.6 mg PO DAILY #7 tab 07/24/23 Isosorbide Mononitrate [Isosorbide Mononitrate ER] 30 mg PO DAILY 30 Days #30 tab 07/24/23 allopurinoL [Allopurinol] 100 mg PO DAILY #30 tab 07/24/23 lisinopriL [Prinivil*] 20 mg PO DAILY #30 tab 07/24/23 New Medications: allopurinoL [Allopurinol] 100 mg PO DAILY #30 tab Aspirin [Aspirin EC 81 MG] 81 mg PO DAILY #30 tab Colchicine [Colcrys *] 0.6 mg PO DAILY #7 tab Isosorbide Mononitrate [Isosorbide Mononitrate ER] 30 mg PO DAILY 30 Days #30 tab Atorvastatin Calcium [Lipitor*] 10 mg PO BEDTIME 30 Days #30 tab lisinopriL [Prinivil*] 20 mg PO DAILY #30 tab Physician Discharge Instructions: 62-year-old male presented with atypical chest pain, was evaluated by ca rdiology. Serial troponins were negative. Was noted to have pneumonia and treated with IV antibiotics, nebs, oxygen. Improved, plan to follow-up with primary care outpatient for pneumonia. Follow-up with cardiology for atypical chest pain, severe CAD with medical management. Assessment Atypical chest pain evaluated by cardiology recommended medical management Pneumonia treated with antibiotics, nebulizers, History of COPD resume home medication History of hepatitis C Hypokalemia treated with replenished electrolyte History of A-fib ablation, with intermittent bradycardia no Eliquis due to thoracic aneurysm thoracic aneurysm Left heart cath 07/22 Dr Garcia Assessment And Plan: 1. 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 2. Ostial diagonal disease that should be left for medical management as any intervention can jeopardize left anterior descending. Plan will be to continue aggressive medical management for coronary artery disease. Renal US IMPRESSION: Unremarkable renal ultrasound. Follow-up with Dr. Garcia, cardiology in 1-2 weeks Continue home medicines as previously prescribed GOAL: Clear understanding of disease process INSTRUCTIONS: Physician Discharge Instructions: -DC IV and DC home -Follow-up with PCP in 1 to 2 weeks -Please call Dr. Suarez at [phone] if any questions regarding hospital stay -Please call nursing station at [phone] if any nursing or medication questions -Return to the emergency room if symptoms worsen Followup: Jorge Garcia MD [ACTIVE - CAN ADMIT] - Ida Du FNP [Primary Care Provider] - Time spent managing pt's care (in minutes): 55
[2023-07-24 09:50] VITALS: O2SAT 95
[2023-07-24 17:16] VITALS: BP 133/74; TEMP 97.9
--- NOTE | 2023-07-25 13:47 | ECHO ---
HEIGHT: 6 ft 3 in WEIGHT: 338 lb 11.2 oz DATE OF STUDY: 07/24/[address]: Theo Suarez MD 2-DIMENSIONAL: YES M.MODE: YES DOPPLER: YES COLOR FLOW: YES TDS: PORTABLE: YES DEFINITY: BUBBLE STUDY: DIAGNOSIS: NON ST ELEVATION MYOCARDIAL INFARCTION CARDIAC HISTORY: CATHERIZATION: SURGERY: PROSTHETIC VALVE: PACEMAKER: MEASUREMENTS (cm) DIASTOLIC (NORMALS) SYSTOLIC (NORMALS) IVSd 1.2 (0.6-1.2) LA Diam 4.5 (1.9-4.0) LVEF 78% LVIDd 3.8 (3.5-5.7) LVIDs 2.1 (2.0-3.5) %FS 46% LVPWd 1.6 (0.6-1.2) Ao Diam 3.5 (2.0-3.7) 2 DIMENSIONAL ASSESSMENT: RIGHT ATRIUM: NORMAL LEFT ATRIUM: ENLARGED RIGHT VENTRICLE: NORMAL LEFT VENTRICLE: MILD LEFT VENTRICULAR HYPERTROPHY TRICUSPID VALVE: MILD TRICUSPID REGURGITATION MITRAL VALVE: MILD MITRAL REGURGITATION PULMONIC VALVE: NORMAL AORTIC VALVE: CALCIFIED AORTIC VALVE, NO AORTIC STENOSIS PERICARDIAL EFFUSION: NONE AORTIC ROOT: NORMAL LEFT VENTRICULAR WALL MOTION: NORMAL DOPPLER/COLOR FLOW: SEE BELOW COMMENTS: 1. NORMAL LEFT VENTRICULAR EJECTION FRACTION 60-65% 2. NORMAL WALL MOTION 3. LEFT ATRIAL ENLARGEMENT 4. MILD CONCENTRIC LEFT VENTRICULAR HYPERTROPHY 5. MILD MITRAL REGURGITATION 6. MILD TRICUSPID REGURGITATION TECHNOLOGIST: JESSICA GONZALEZ
== END 2023-07-24 14:15 | disposition home or self-care (01) | DRG 194 ==
LOC: ER 17:18 → ERHOLD 20:24 → 2ND 23:01
PROVIDERS: ADMIT Internal Medicine; ATTEND Hospitalist
PROC: 4A023N7 Measurement of Cardiac Sampling and Pressure, Left Heart, Percutaneous Approach (ICD-10-PCS; principal; 2023-07-23)
PROC: B2111ZZ Fluoroscopy of Multiple Coronary Arteries using Low Osmolar Contrast (ICD-10-PCS; 2023-07-23)
DX: J18.9 Pneumonia, unspecified organism (principal); J44.0 Chronic obstructive pulmonary disease with (acute) lower respiratory infection; Z68.41 Body mass index [BMI] 40.0-44.9, adult; E66.9 Obesity, unspecified; I10 Essential (primary) hypertension; E87.6 Hypokalemia; E11.9 Type 2 diabetes mellitus without complications; I48.91 Unspecified atrial fibrillation; I71.21 Aneurysm of the ascending aorta, without rupture; I25.10 Atherosclerotic heart disease of native coronary artery without angina pectoris; F17.200 Nicotine dependence, unspecified, uncomplicated; R00.1 Bradycardia, unspecified; Z88.5 Allergy status to narcotic agent; Z88.0 Allergy status to penicillin; Z79.82 Long term (current) use of aspirin; Z79.52 Long term (current) use of systemic steroids; Z79.84 Long term (current) use of oral hypoglycemic drugs; Z79.02 Long term (current) use of antithrombotics/antiplatelets; Z91.018 Allergy to other foods; Z79.899 Other long term (current) drug therapy; Z91.190 Patient's noncompliance with other medical treatment and regimen due to financial hardship
CPT/HCPCS: 36415; 71045; 71275; 74175; 76770; 76937; 80048; 80053; 80061; 80069; 82947; 83735; 83880; 84484; 84550; 85025; 85610; 93306; 93458; 94640; 96374; 99152; 99153; 99285; C1760; C1893; G0269; J0360; J0461; J0692; J1644; J1650; J1815; J2001; J2250; J2270; J2310; J2405; J3010; J7040; J7050; J7613; J7644; Q9967

== ENCOUNTER 2023-08-26 03:26 | Inpatient (IN) | payer OTHER ==
--- OUTSIDE RECORDS SUMMARY | 2023-08-26 03:35 | XMS REPORT | Continuity of Care Document ---
Author Name Unknown Address [address] [facility] [address] [place] [address] [facility] Address [address] [facility] [address] [place] [address] Care Team Providers Care Fringe Maker Name Role Phone Judit Parker Primary Care Physician SANDY DEVINE Attending Clinician Unav ailable SID PRINCE Attending Clinician Unavailable TWIN ROBLES Attending Clinician Unavail able MELINA CONTRERAS Attending Clinician Unavailable PL, TECH 1 Attending Clinician Unavailable LAB90 Attending Clinician Unavailable EAGLE WHITE [place] Attending Clinician UnavailMALA Justice Attending Clinician Unavailable KRISTINE ESTEVEZ Attending Clinician Unavail able DAMIEN HUNTER Attending Clinician Unavailable PALOMA GONZALES Attending Clinician Unava ilable ARLIN MIKE Attending Clinician Unavailab LIDIA Fay Attending Clinician Unava ilable MD LASHELL Attending Clinician Unavailab BATSHEVA Haas Attending Clinician Unavailable HIRAM MACK Attending Clinician Unavailable KATHY LOPEZ Attending Clinician Unavailable AZIZA ALEMAN Attending Clinician Unavailable DARIUSZ MATTHEWS Attending Clinician Unavailab GABRIELA Amaral Attending Clinician Unavailable [id number] Attending Clinician Unavailable DIANE WELSH Attending Clinician Unavailable KIM ARANA Attending Clinician Unav ailable Payers Payer Name Policy Type Policy Number Effective Date Expirati on Date Source [employer] MP [employer] [employer] 5 O [employer]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 94 ON 9 [id number] 2023 00:00:00 Problems Condition Name Condition Details Condition Category Status Onset Date Resolution Date Last Treatment Date Treating Clinician Comments Source Type 2 diabetes mellitus with diabetic neuropathy , without long-term current use of insulin (multi HCC) Type 2 diabetes mellitus with diabetic neuropathy , without long-term current use of insulin (multi HCC) Disease Active 11-13 00:00: 00 Jessika Georges - Externa alexis Atrial fibrillati on (multi HCC) Atrial fibrillati on (multi HCC) Disease Active 09-14 00:00: 00 Jessika Georges - Externa alexis 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 (multi HCC) 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 (multi HCC) Disease Active 09-14 00:00: 00 Jessika Georges - Externa alexis Type 2 diabetes mellitus Type 2 diabetes mellitus Disease Active 07-11 00:00: 00 Jessika Georges - Externa alexis HTN (hypertens ion) HTN (hypertens ion) Disease Active 07-11 00:00: 00 Jessika Georges - Externa alexis COPD (chronic obstructiv e pulmonary disease) (multi HCC) COPD (chronic obstructiv e pulmonary disease) (multi HCC) Disease Active 07-11 00:00: 00 Jessika Georges - Externa alexis Aortic arch aneurysm Aortic arch aneurysm Disease Active 07-11 00:00: 00 Jessika Georges - Externa l Hyperlipid emia Hyperlipid emia Disease Active 07-11 00:00: 00 Jessika Georges - Externa l 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, COPD (multi HCC) 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, COPD (multi HCC) Disease Active 07-11 00:00: 00 Jessika Georges - Externa l Allergies, Adverse Reactions, Alerts Allergy Name Allergy Type Status Severity Reaction(s) Onset Date Inactive Date Treating Clinician Comments Source Penicill ins Propensi ty to adverse reaction s Active Nausea and Vomiting 17 00:00: 00 Jessika Georges - Externa alexis Penicill ins - CLASS Propensi ty to adverse reaction to drug Active 11-05 00:00: 00 Morphine Propensi ty to adverse reaction s Active 2016-03 00:00: 00 Other Reaction( s): vomiting Jessika espinoza Codeine Propensi ty to adverse reaction to drug Active 06-10 00:00: 00 Codeine Propensi ty to adverse reaction s Active Nausea and Vomiting 06-30 00:00: 00 Other Reaction( s): Unknown - See comments Jessika espinoza Penicill ins Propensi ty to adverse reaction s Active Nausea and Vomiting 06-30 00:00: 00 Other Reaction( s): unknown, Unknown - See comments Jessika espinoza Social History Social Habit Start Date Stop Date Quantity Comments Source Gender identity Sarah Georges - External Sexual orientation Tina amarilis Georges - External History of Social function 2022-11-13 00:00:00 2022-11-13 00:00:00 Jessika Georges - External Sex assigned at 1960 00:00:00 1960 00:00:00 Jessika Georges - External Smoking Status Start Date Stop Date Source Never smoked tobacco Jessika Georges - External Medications Ordered Medication Name Filled Medication Name Start Date Stop Date Current Medication? Ordering Clinician Indication Dosage Frequency Signature (SIG) Comments Components Source Isosorbide Mononitrate CR 60 MG oral TABLET SR 24 HR 08-10 00:00: 00 Yes [id number] 60mg Take 1 tablet (60 mg total) by mouth daily. Jessika espinoza Doxycycline Hyclate 100 MG oral Tablet 08-10 00:00: 00 Yes [id number] 100mg Take 1 tablet (100 mg total) by mouth 2 times daily. Jessika espinoza Dulaglutide (Trulicity) 0.75 MG/0.5ML subcutaneou s Solution Pen-injecto r 08-07 00:00: 00 Yes [id number] .75mg Inject 0.75 mg into the skin once a week. Jessika espinoza Lisinopril 40 MG oral Tablet 08-07 00:00: 00 Yes [id number] 40mg Take 1 tablet (40 mg total) by mouth daily. Jessika espinoza Apixaban (Eliquis) 5 MG oral Tablet 08-07 00:00: 00 Yes [id number] 5mg Take 1 tablet (5 mg total) by mouth 2 times daily. Jessika espinoza Glimepiride 2 MG oral Tablet -09 00:00: 00 Yes [id number] TAKE 1 TABLET (2 MG) BY MOUTH EVERY MORNING BEFORE BREAKFAST. Jessika espinoza Atorvastati n Calcium 10 MG oral Tablet 07-25 00:00: 00 Yes [id number] 10mg Take 1 tablet (10 mg total) by mouth nightly. Jessika espinoza Furosemide 40 MG oral Tablet 07-25 00:00: 00 Yes [id number] TAKE 1 TABLET ON SUNDAY, SUNDAY AND SUNDAY Jessika espinoza Potassium chloride 10 MEQ oral Tab CR 07-25 00:00: 00 Yes [id number] TAKE 1 TABLET BY MOUTH ON SUNDAY, SUNDAY AND SUNDAY Jessika espinoza Allopurinol 100 MG oral Tablet 07-23 00:00: 00 Yes 100mg Take 1 tablet (100 mg total) by mouth daily. Jessika espinoza Aspirin Low Dose 81 MG oral Chewable Tablet 07-23 00:00: 00 Yes [id number] 81mg Take 1 tablet (81 mg total) by mouth daily. Jessika espinoza Colchicine 0.6 MG oral Tablet 07-23 00:00: 00 Yes .6mg Take 1 tablet (0.6 mg total) by mouth daily. Jessika espinoza Isosorbide Mononitrate CR 30 MG oral TABLET SR 24 HR 07-23 00:00: 00 08-10 00:00 :00 No [id number] 30mg Take 1 tablet (30 mg total) by mouth daily. Jessika espinoza Lisinopril 20 MG oral Tablet 07-23 00:00: 00 08-07 00:00 :00 No 20mg Take 1 tablet (20 mg total) by mouth daily. Jessika espinoza ASPIRIN 81 OR 07-23 00:00: 00 08-07 00:00 :00 No 81mg 81 mg. Jessika espinoza Levocetiriz ine Dihydrochlo ride 5 MG oral Tablet 07-22 00:00: 00 Yes [id number] 5mg Take 1 tablet (5 mg total) by mouth every day at 5:00 PM. Jessika espinoza Metformin HCl 500 MG oral Tablet 07-22 00:00: 00 Yes [id number] 500mg Take 1 tablet (500 mg total) by mouth in the morning and 1 tablet (500 mg total) in the evening. Take with meals. Jessika espinoza Montelukast (SINGULAIR) 10 MG oral Tablet tablet 07-20 00:00: 00 Yes 10mg 1 tablet (10 mg total). Jessika espinoza Ipratropium (ATROVENT) 0.02 % inhalation Solution 3-07 00:00: 00 Yes [id number] 500ug Take 2.5 mL (500 mcg total) by nebulizati on 3 times daily. Jessika espinoza Atorvastati n Calcium 10 MG oral Tablet 2-06 00:00: 00 Yes [id number] 10mg TAKE 1 TABLET BY MOUTH EVERY DAY AT NIGHT Jessika espinoza Carvedilol 3.125 MG oral Tablet 2- 00:00: 00 08-07 00:00 :00 No TAKE 1 TABLET (3.125 MG TOTAL) BY MOUTH IN THE MORNING AND IN THE EVENING WITH MEALS Jessika espinoza Glimepiride 2 MG oral Tablet 2- 00:00: 00 Yes [id number] TAKE 1 TABLET (2 MG) BY MOUTH EVERY MORNING BEFORE BREAKFAST. Jessika espinoza Fluticasone -Salmeterol 250-50 MCG/ACT inhalation AEROSOL POWDER, BREATH ACTIVATED 2022-03 2-18 00:00: 00 08-07 00:00 :00 No [id number] 1{puff} Inhale 1 puff into the lungs 2 times daily. Jessika espinoza Albuterol HFA 108 (90 Base) MCG/ACT IN AERS 2022-03 2-16 00:00: 00 Yes [id number] 2{puff} Q.25D Inhale 2 puffs into the lungs every 6 hours as needed for wheezing. Jessika espinoza Levocetiriz ine Dihydrochlo ride 5 MG oral Tablet 2022-03 1-06 00:00: 00 Yes [id number] 5mg Take 1 tablet (5 mg total) by mouth every day at 5:00 PM. Jessika espinoza Albuterol Sulfate 108 (90 Base) MCG/ACT inhalation AEROSOL POWDER, BREATH ACTIVATED 11-13 11:10: 11-13 00:00 :00 No Inhale into the lungs Jessika espinoza Montelukast (SINGULAIR) 10 MG oral Tablet tablet 11-13 11:10: 11-13 00:00 :00 No 10mg Take 1 tablet (10 mg total) by mouth nightly. Jessika espinoza Ascorbic Acid (VITAMIN C OR) 11-13 11:01: 46 Yes Take by mouth Jessika espinoza Glimepiride 2 MG oral Tablet 11-13 00:00: 00 Yes [id number] TAKE 1 TABLET (2 MG) BY MOUTH EVERY MORNING BEFORE BREAKFAST. Jessika espinoza Atorvastati n Calcium 10 MG oral Tablet 11-13 00:00: 00 Yes [id number] 10mg Take 1 tablet (10 mg total) by mouth nightly. Jessika espinoza Albuterol Sulfate 108 (90 Base) MCG/ACT inhalation AEROSOL POWDER, BREATH ACTIVATED 11-13 00:00: 00 Yes [id number] 1{inhal ation} Inhale 1 Inhalation into the lungs every 4 to 6 hours as needed. Jessika espinoza Albuterol-I pratropium 0.5-2.5 (3) MG/3ML inhalation Solution 11-13 00:00: 00 Yes [id number] 2.5mg Inhale 3 mL (2.5 mg total) into the lungs every 6 (six) hours. Jessika espinoza Fluticasone -Salmeterol 250-50 MCG/ACT inhalation AEROSOL POWDER, BREATH ACTIVATED 11-13 00:00: 00 Yes [id number] 1{puff} Inhale 1 puff into the lungs 2 times daily. Jessika espinoza Ipratropium (ATROVENT) 0.02 % inhalation Solution 11-13 00:00: 00 Yes [id number] 500ug Take 2.5 mL (500 mcg total) by nebulizati on 3 times daily. Jessika espinoza LISINOPRIL- HCTZ 20-25 MG oral Tablet 11-13 00:00: 00 08-07 00:00 :00 No [id number] 2{tbl} Take 2 tablets by mouth daily. Jessika espinoza Montelukast (SINGULAIR) 10 MG oral Tablet tablet 11-13 00:00: 00 08-07 00:00 :00 No [id number] 10mg Take 1 tablet (10 mg total) by mouth nightly. Jessika espinoza Trulicity 0.75 MG/0.5ML subcutaneou s Solution Pen-injecto r 11-13 00:00: 00 08-07 00:00 :00 No [id number] .75mg Inject 0.75 mg into the skin once a week. Jessika espinoza Atorvastati n Calcium 10 MG oral Tablet 11-03 00:00: 00 11-13 00:00 :00 No [id number] 10mg Take 1 tablet (10 mg total) by mouth nightly Jessika espinoza Glimepiride 2 MG oral Tablet 10-30 00:00: 00 11-13 00:00 :00 No [id number] TAKE 1 TABLET (2 MG) BY MOUTH EVERY MORNING BEFORE BREAKFAST Jessika espinoza Carvedilol 3.125 MG oral Tablet - 00:00: 00 Yes 3.125mg Take 1 tablet (3.125 mg total) by mouth in the morning and 1 tablet (3.125 mg total) in the evening. Take with meals. Jessika espinoza Albuterol-I pratropium 0.5-2.5 (3) MG/3ML inhalation Solution 10-16 00:00: 00 11-13 00:00 :00 No [id number] 2.5mg Inhale 3 mL (2.5 mg total) into the lungs every 6 (six) hours Jessika espinoza Metformin HCl 500 MG oral Tablet 10-12 00:00: 00 Yes TAKE 1 TABLET (500MG TOTAL) BY MOUTH IN THE MORNING AND TAKE 1 TABLET IN THE EVENING WITH MEALS Jessika espinoza Carvedilol 25 MG oral Tablet 10-12 00:00: 00 08-07 00:00 :00 No TAKE 1 TABLET BY MOUTH EVERY DAY IN THE MORNING AND IN THE EVENING WITH MEALS Jessika espinoza Fenofibrate 160 MG oral Tablet 10-02 00:00: 00 08-07 00:00 :00 No 160mg Take 1 tablet (160 mg total) by mouth daily. Jessika espinoza Levocetiriz ine Dihydrochlo ride 5 MG oral Tablet 08-07 00:00: 00 Yes [id number] 5mg Take 1 tablet (5 mg total) by mouth every day at 5:00 PM Jessika espinoza Clonidine (CATAPRES) 0.2 MG oral Tablet 07-27 09:33: 42 Yes .4mg Take 2 tablets (0.4 mg total) by mouth daily Jessika espinoza Glimepiride 2 MG oral Tablet 07-27 00:00: 00 Yes [id number] 2mg Take 1 tablet (2 mg total) by mouth every morning (before breakfast) Jessika espinoza Ipratropium (ATROVENT) 0.02 % inhalation Solution 07-18 00:00: 00 11-13 00:00 :00 No Jessika espinoza Albuterol-I pratropium 0.5-2.5 (3) MG/3ML inhalation Solution 07-14 00:00: 00 Yes [id number] 2.5mg Inhale 3 mL (2.5 mg total) into the lungs every 6 (six) hours Jessika espinoza Carvedilol 25 MG oral Tablet 07-14 00:00: 00 Yes [id number] 25mg Take 1 tablet (25 mg total) by mouth in the morning and 1 tablet (25 mg total) in the evening. Take with meals. Jessika espinoza Fenofibrate 160 MG oral Tablet 07-14 00:00: 00 Yes [id number] 160mg Take 1 tablet (160 mg total) by mouth daily Jessika espinoza Metformin HCl 500 MG oral Tablet 07-14 00:00: 00 Yes [id number] 500mg Take 1 tablet (500 mg total) by mouth in the morning and 1 tablet (500 mg total) in the evening. Take with meals. Jessika espinoza Montelukast (SINGULAIR) 10 MG oral Tablet tablet 07-14 00:00: 00 Yes [id number] 10mg Take 1 tablet (10 mg total) by mouth nightly Jessika espinoza LISINOPRIL- HCTZ 20-25 MG oral Tablet 07-14 00:00: 00 11-13 00:00 :00 No [id number] 1{tbl} Take 1 tablet by mouth 2 times daily Jessika espinoza Metformin HCl 1000 MG oral Tablet 07-13 00:00: 00 Yes [id number] 1000mg Take 1 tablet (1,000 mg total) by mouth daily (with breakfast) . Jessika espinoza Albuterol (PROVENTIL) (2.5 MG/3ML) 0.083% inhalation Inhalant Solution 07-13 00:00: 00 Yes [id number] 2.5mg Take 2.5 mg by nebulizati on once for 1 dose Jessika espinoza Atorvastati n Calcium 10 MG oral Tablet 07-13 00:00: 00 Yes [id number] Jessika espinzoa Lisinopril 10 MG oral Tablet 07-13 00:00: 00 Yes Jessika espinoza LISINOPRIL- HCTZ 20-25 MG oral Tablet 07-11 10:07-11 00:00 :00 No 1{tbl} Take 1 tablet [...] (SINGULAIR) 10 MG oral Tablet tablet 07-11 10:07-11 00:00 :00 No 10mg Take 1 tablet (10 mg total) by mouth nightly Jessika espinoza Fenofibrate 160 MG oral Tablet 07-11 10:07-11 00:00 :00 No 160mg Take 1 tablet (160 mg total) by mouth daily Jessika espinoza Albuterol-I pratropium 0.5-2.5 (3) MG/3ML inhalation Solution 07-11 10:07-11 00:00 :00 No 2.5mg Inhale 3 mL [...] oral Tablet tablet 07-11 00:00: 00 Yes [id number] 10mg Take 1 tablet (10 mg total) by mouth nightly Jessika espinoza Metformin HCl 500 MG oral Tablet 07-11 00:00: 00 Yes [id number] 500mg Take 1 tablet (500 mg total) by mouth in the morning and 1 tablet (500 mg total) in the evening. Take with meals. Jessika espinoza LISINOPRIL- HCTZ 20-25 MG oral Tablet 07-11 00:00: 00 Yes [id number] 1{tbl} Take 1 tablet by mouth 2 times daily Jessika espinoza Fenofibrate 160 MG oral Tablet 07-11 00:00: 00 Yes [id number] 160mg Take 1 tablet (160 mg total) by mouth daily Jessika espinoza Carvedilol 25 MG oral Tablet 07-11 00:00: 00 Yes [id number] 25mg Take 1 tablet (25 mg total) by mouth in the morning and 1 tablet (25 mg total) in the evening. Take with meals. Jessika espinoza Albuterol-I pratropium 0.5-2.5 (3) MG/3ML inhalation Solution 07-11 00:00: 00 Yes [id number] 2.5mg Inhale 3 mL (2.5 mg total) into the lungs every 6 (six) hours Jessika espinoza Fluticasone -Salmeterol 250-50 MCG/ACT inhalation AEROSOL POWDER, BREATH ACTIVATED 07-10 00:00: 00 11-13 00:00 :00 No Jessika espinoza lisinopril 20 mg-hydrochl orothiazide 25 mg tablet 08-29 00:00: 00 No 2mg doxycycline hyclate 100 mg capsule 08-29 00:00: 00 No 1mg Dose Unknown 08-29 00:00: 00 No doxycycline hyclate 100 mg capsule 06 00:00: 00 No 1mg ProAir HFA 90 [...] 00:00: 00 No metformin 500 mg tablet 08-03 00:00: 00 [...] 00 No 1mg montelukast 10 mg tablet 2- 00:00: 00 No 1mg lisinopril 20 mg-hydrochl orothiazide 25 mg tablet 04-27 00:00: 00 No 2mg metformin 500 mg tablet 04-27 00:00: 00 No 1mg ProAir HFA 90 mcg/actuati on aerosol inhaler 04-27 00:00: 00 No 12mcg/a ctuatio n Wixela Inhub 250 mcg-50 mcg/dose powder for inhalation 04-27 00:00: 00 No 1mcg/do se erythromyci n 5 mg/gram (0.5 %) eye ointment 04-27 00:00: 00 No 1(0.5 %) levocetiriz ine 5 mg tablet 04-27 00:00: 00 No 1mg montelukast 10 mg tablet 04-27 00:00: 00 No 1mg lisinopril 20 mg-hydrochl orothiazide 25 mg tablet 04-27 00:00: 00 No 2mg metformin 500 mg tablet 04-27 00:00: 00 No 1mg Bromfed DM 2 [...] - 00:00: 00 No 3mg base)/3 mL levocetiriz [...] rine ER 10 mg-240 mg tablet,exte nded [id number] 10-27 00:00: 00 No 1mg carvedilol 25 [...] rine ER 10 mg-240 mg tablet,exte nded [id number] 10-27 00:00: 00 No 1mg carvedilol 25 [...] ProAir HFA 90 mcg/actuati on aerosol inhaler 20 00:00: 00 No 12mcg/a ctuatio n Wixela Inhub 250 mcg-50 mcg/dose powder for inhalation 20 00:00: 00 No 1mcg/do se metformin 500 mg tablet 20 00:00: 00 No 1mg lisinopril 20 mg-hydrochl [...] (2.5 mg base)/3 mL nebulizatio n soln 20 00:00: 00 No 3mg base)/3 mL ProAir HFA 90 mcg/actuati on aerosol inhaler -16 00:00: 00 No 12mcg/a ctuatio n ProAir HFA 90 mcg/actuati on aerosol inhaler 2021-0 3-16 00:00: 00 No 12mcg/a ctuatio n lisinopril 20 mg-hydrochl orothiazide 25 mg tablet 1-20 00:00: 00 No 2mg montelukast 10 mg tablet 1-20 00:00: 00 No 1mg metformin 500 mg tablet 1-20 00:00: 00 No 1mg lisinopril 20 mg-hydrochl orothiazide 25 mg tablet 1- 00:00: 00 No 2mg montelukast 10 mg tablet - 00:00: 00 No 1mg metformin 500 mg tablet 1- 00:00: 00 No 1mg ProAir HFA 90 mcg/actuati on aerosol inhaler 1- 00:00: 00 No 12mcg/a ctuatio n ProAir HFA 90 mcg/actuati on aerosol inhaler 04-09 00:00: 00 No 12mcg/a ctuatio n lisinopril 20 mg-hydrochl orothiazide 25 mg tablet 2019-03 2- 00:00: 00 No 2mg lisinopril 20 mg-hydrochl orothiazide 25 mg tablet 2019-03 2 00:00: 00 No 2mg metformin 500 mg tablet 2019-03 0- 00:00: 00 No 1mg simvastatin 20 mg tablet 2019-03 0- 00:00: 00 No 1mg metformin 500 mg tablet 2019-03 0- 00:00: 00 No 1mg simvastatin 20 mg tablet 2019-03 0- 00:00: 00 No 1mg ipratropium 0.5 mg-albutero l 3 mg (2.5 mg base)/3 mL nebulizatio n soln 2019-03 0-07 00:00: 00 No 3mg base)/3 mL ipratropium 0.5 mg-albutero l 3 mg (2.5 mg base)/3 mL nebulizatio n soln 2019-03 007 00:00: 00 No 3mg base)/3 mL carvedilol 25 mg tablet - 00:00: 00 No 1mg lisinopril 20 mg-hydrochl orothiazide 25 mg tablet 12-19 00:00: 00 No 2mg montelukast 10 mg tablet 12-19 00:00: 00 No 1mg lisinopril 20 mg-hydrochl orothiazide 25 mg tablet 12-19 00:00: 00 No 2mg montelukast 10 mg tablet 12-19 00:00: 00 No 1mg carvedilol 25 mg tablet 12-19 00:00: 00 No 1mg metformin 500 mg tablet 10-04 00:00: 00 No 1mg metformin 500 [...] HFA 90 mcg/actuati on aerosol inhaler 2018-03 0 00:00: 00 No 12mcg/a ctuatio n lisinopril 20 mg-hydrochl orothiazide 25 mg tablet 2018-03 0 00:00: 00 No 2mg metformin 500 mg tablet 2018-03 0 00:00: 00 No 1mg lovastatin 20 mg tablet 2018-03 015 00:00: 00 No 1mg ProAir HFA 90 mcg/actuati on aerosol inhaler 2018-03 0 00:00: 00 No 12mcg/a ctuatio n lisinopril 20 mg-hydrochl orothiazide 25 mg tablet 2018-03 015 00:00: 00 No 2mg metformin 500 mg tablet 2018-03 015 00:00: 00 No 1mg lovastatin 20 mg tablet 2018-03 0-15 00:00: 00 No 1mg carvedilol 25 mg tablet 2018-03 0 00:00: 00 No 1mg carvedilol 25 mg tablet 2018-03 0 00:00: 00 No 1mg lisinopril 20 mg-hydrochl [...] 00 No 2mg carvedilol 25 mg tablet 06-13 00:00: 00 No 1mg lovastatin 20 mg tablet 06-13 00:00: 00 No 1mg lisinopril 20 mg-hydrochl orothiazide 25 mg tablet 06-13 00:00: 00 No 2mg carvedilol 25 mg tablet 06-13 00:00: 00 No 1mg lovastatin 20 mg tablet 06-13 00:00: 00 No 1mg metformin 500 mg tablet 2 00:00: 00 No 1mg metformin 500 mg tablet 220 00:00: 00 No 1mg ipratropium -albuterol 0.5 mg-3 mg(2.5 mg base)/3 mL nebulizatio n soln 05-14 00:00: 00 No 3mg base)/3 mL ipratropium [...] No 2mg carvedilol 25 mg tablet 2017-03 2 00:00: 00 No 1mg lovastatin 20 mg tablet 2017-03 2 00:00: 00 No 1mg lovastatin 20 mg [...] mg tablet 2013-03 00:00: 00 No mg Immunizations Ordered Immunization Name Filled Immunization Name Date Status Comments Source Covid-19 Vaccine Moderna (Spikevax), Mrna-lnp, Cecil Protein, Pf 2020-12-02 00:00:00 Dennis Nolasco Moderna COVID-19 Vaccine 2020-12-02 00:00:00 Completed Moderna COVID-19 Vaccine 2020-12-02 00:00:00 Completed Moderna COVID-19 Vaccine 2020-12-02 00:00:00 Completed Covid-19 Vaccine Moderna (Spikevax), Mrna-lnp, Cecil Protein, Pf 2020-06-05 00:00:00 Completed Jessika Seybold - External Moderna COVID-19 Vaccine 2020-06-05 00:00:00 Completed Moderna COVID-19 Vaccine 2020-06-05 00:00:00 Completed Moderna COVID-19 Vaccine 2020-06-05 00:00:00 Completed Covid-19 Vaccine Moderna (Spikevax), Mrna-lnp, Cecil Protein, Pf 2020-04-30 00:00:00 Completed Jessika Seybold - External Moderna COVID-19 Vaccine 2020-04-30 00:00:00 Completed Moderna COVID-19 Vaccine 2020-04-30 00:00:00 Completed Moderna COVID-19 Vaccine 2020-04-30 00:00:00 Completed Covid-19 Vaccine Moderna (Spikevax), Mrna-lnp, Cecil Protein, Pf Unknown Completed [facility] - External Covid-19 Vaccine Moderna (Spikevax), Mrna-lnp, Cecil Protein, Pf Unknown Completed [facility] - External Covid-19 Vaccine Moderna (Spikevax), Mrna-lnp, Cecil Protein, Pf Unknown Completed [facility] - External Covid-19 Vaccine Moderna (Spikevax), Mrna-lnp, Cecil Protein, Pf Unknown Completed [facility] - External Covid-19 Vaccine Moderna (Spikevax), Mrna-lnp, Cecil Protein, Pf Unknown Completed [facility] - External Covid-19 Vaccine Moderna (Spikevax), Mrna-lnp, Cecil Protein, Pf Unknown Completed [facility] - External Covid-19 Vaccine Moderna (Spikevax), Mrna-lnp, Cecil Protein, Pf Unknown Completed [facility] - External Covid-19 Vaccine Moderna (Spikevax), Mrna-lnp, Cecil Protein, Pf Unknown Completed [facility] - External Covid-19 Vaccine Moderna (Spikevax), Mrna-lnp, Cecil Protein, Pf Unknown Completed [facility] - External Vital Signs Vital Name Observation Time Observation Value Comments S ource Systolic blood pressure 2023-08-08 18:08:00 156 mm[Hg] Jessika Castaneda ld - External Diastolic blood pressure 2023-08-08 18:08:00 80 mm[Hg] Jessika Seybo ld - External Heart rate 2023-08-08 17:52:00 78 /min Kelse y Seybold - External Body temperature 2023-08-08 17:52:00 36.56 Mela Jessika Seybold - External Respiratory rate 2023-08-08 17:52:00 15 /min Jessika Seybold - External Body height 2023-08-08 17:52:00 190.5 cm Sarah ey Seybold - External Body weight 2023-08-08 17:52:00 157.398 kg Sarah ey Seybold - External BMI 2023-08-08 17:52:00 43.37 kg/m2 Sarah ey Seybold - External Systolic blood pressure 2022-11-13 15:55:00 142 mm[Hg] Jessika Seybo ld - External Diastolic blood pressure 2022-11-13 15:55:00 80 mm[Hg] Jessika Seybo ld - External Heart rate 2022-11-13 15:55:00 57 /min Kelse y Seybold - External Body temperature 2022-11-13 [...] by Pulse oximetry 2022-11-13 15:55:00 97 /min Ejssika Seybo ld - External Systolic blood pressure 2022-07-11 14:30:00 134 mm[Hg] Jessika Seybo ld - External Diastolic blood pressure 2022-07-11 14:30:00 86 mm[Hg] Jessika Seybo ld - External Heart rate 2022-07-11 14:30:00 48 /min Kelse y Seybold - External Body temperature 2022-07-11 14:30:00 35.89 Mela Jessika Seybold - External Respiratory rate 2022-07-11 14:30:00 18 /min Jessika Georges - External Body height 2022-07-11 14:30:00 190.5 cm Sarah Georges - External Body weight 2022-07-11 14:30:00 160.664 kg Sarah Georges - External BMI 2022-07-11 14:30:00 44.27 kg/m2 Sarah Georges - External Oxygen saturation in Arterial blood by Pulse oximetry 2022-07-11 14:30:00 95 /min Jessika Jones ld - External BP Systolic 2021-11-05 16:38:00 [...] Goal Plan of Care Note [code = 75081-2] Goal Plan of Care Note [code = 43238-3] Goal Plan of Care Note [code = 36771-1] Goal Plan of Care Note [code = 97497-6] Goal Plan of Care Note [code = 07184-2] Goal Plan of Care Note [code = 62846-6] Goal Plan of Care Note [code = 54030-3] Goal Plan of Care Note [code = 46102-8] Goal Plan of Care Note [code = 92678-6] Goal Plan of Care Note [code = 83536-8] Goal Plan of Care Note [code = 33554-5] Goal Plan of Care Note [code = 89391-9] Goal Plan of Care Note [code = 04047-1] Goal Plan of Care Note [code = 18939-0] Goal Plan of Care Note [code = 10728-7] Goal Plan of Care Note [code = 00685-1] Goal Plan of Care Note [code = 19486-1] Goal Plan of Care Note [code = 70191-8] Goal Plan of Care Note [code = 65081-2] Goal Plan of Care Note [code = 59079-9] Goal Plan of Care Note [code = 43462-4] Goal Plan of Care Note [code = 07838-5] Goal Plan of Care Note [code = 99344-9] Goal Plan of Care Note [code = 01908-3] Goal Plan of Care Note [code = 38339-1] Goal Plan of Care Note [code = 97395-6] Goal Plan of Care Note [code = 01166-9] Goal Plan of Care Note [code = 45331-4] Goal Plan of Care Note [code = 35959-5] Goal Plan of Care Note [code = 78862-0] Goal Plan of Care Note [code = 09450-7] Goal Plan of Care Note [code = 79568-9] Goal Plan of Care Note [code = 97391-9] Goal Plan of Care Note [code = 62127-6] Goal Plan of Care Note [code = 71215-7] Goal Plan of Care Note [code = 52898-7] Goal Plan of Care Note [code = 49950-9] Goal Plan of Care Note [code = 79553-2] Goal Plan of Care Note [code = 78932-8] Goal Plan of Care Note [code = 18026-9] Goal Plan of Care Note [code = 55822-0] Goal Plan of Care Note [code = 50000-1] Goal Plan of Care Note [code = 51778-9] Goal Plan of Care Note [code = 76041-7] Goal Plan of Care Note [code = 79526-3] Goal Plan of Care Note [code = 82996-4] Goal Plan of Care Note [code = 63104-9] Goal Plan of Care Note [code = 78754-1] Goal Plan of Care Note [code = 45134-6] Goal Plan of Care Note [code = 92490-4] Goal Plan of Care Note [code = 47767-1] Goal Plan of Care Note [code = 18617-1] Goal Plan of Care Note [code = 23514-3] Goal Plan of Care Note [code = 76648-5] Goal Plan of Care Note [code = 60248-9] Goal Plan of Care Note [code = 93762-7] Goal Plan of Care Note [code = 93273-1] Goal Plan of Care Note [code = 72999-3] Goal Plan of Care Note [code = 85688-0] Goal Plan of Care Note [code = 74941-1] Goal Plan of Care Note [code = 28170-6] Goal Plan of Care Note [code = 06043-5] Goal Plan of Care Note [code = 87104-3] Goal Plan of Care Note [code = 38055-2] Goal Plan of Care Note [code = 53983-6] Goal Plan of Care Note [code = 00768-5] Goal Plan of Care Note [code = 17024-8] Goal Plan of Care Note [code = 91052-4] Goal Plan of Care Note [code = 14468-1] Goal Plan of Care Note [code = 78417-1] Goal Plan of Care Note [code = 39254-6] Goal Plan of Care Note [code = 83498-6] Goal Plan of Care Note [code = 26119-6] Goal Plan of Care Note [code = 64435-8] Goal Plan of Care Note [code = 33187-6] Goal Plan of Care Note [code = 84545-5] Goal Plan of Care Note [code = 25081-4] Goal Plan of Care Note [code = 10828-1] Goal Plan of Care Note [code = 74323-7] Goal Plan of Care Note [code = 78995-7] Goal Plan of Care Note [code = 08402-3] Encounters Start Date/Time End Date/Time Encounter Type Admission Type Attending [facility] Facility Care Department Encounter ID Source 2023-09-26 15:10:00 2023-09-26 15:10:00 Outpatient SANDY DEVINE JESSIKA GEORGE [id number] [facility] 2023-09-18 08:30:00 2023-09-18 08:30:00 Outpatient SID PRINCE [id number] [facility] 2023-09-12 08:30:00 2023-09-12 08:30:00 Outpatient ROBLES TWIN JESSIKA GEORGE [id number] [facility] 2023-08-26 00:00:00 2023-08-26 00:00:00 Outpatient DIANE, MELINAJordy GEORGE [id number] [facility] 2023-08-23 16:30:00 2023-08-23 16:30:00 Outpatient LULU VELASCO [id number] [facility] 2023-08-22 14:25:00 2023-08-22 14:25:00 Outpatient LAB90 JESSIKA GEORGE [id number] [facility] 2023-08-22 10:00:00 2023-08-22 10:00:00 Outpatient SID PRINCE [id number] [facility] 2023-08-22 09:00:00 2023-08-22 09:00:00 Outpatient VICKIE GUILLERMO [id number] [facility] 2023-08-21 00:00:00 2023-08-21 00:00:00 Outpatient MALA GREEN [id number] [facility] 2023-08-21 00:00:00 2023-08-21 00:00:00 Outpatient SID PRINCE [id number] [facility] 2023-08-21 00:00:00 2023-08-21 00:00:00 Outpatient [facility]IN[facility] [id number] [facility] 2023-08-16 00:00:00 2023-08-16 00:00:00 Outpatient HUNDL, SID JESSIKA GEORGE [id number] [facility] 2023-08-16 00:00:00 2023-08-16 00:00:00 Outpatient JESSIKA GEORGE [id number] [facility] 2023-08-15 08:00:00 2023-08-15 08:00:00 Outpatient VICKIE GUILLERMO JESSIKA GEORGE [id number] [facility] 2023-08-15 00:00:00 2023-08-15 00:00:00 Outpatient HUNDL, SID JESSIKA GEORGE [id number] [facility] 2023-08-15 00:00:00 2023-08-15 00:00:00 Outpatient JOSÉ-GREENKRISTINE JESSIKA GEORGE [id number] [facility] 2023-08-11 12:00:00 2023-08-11 12:00:00 Outpatient DALEDAMIEN [id number] [facility] 2023-08-08 14:00:00 2023-08-08 14:00:00 Outpatient LABNereyda JESSIKA GEORGE [id number] [facility] 2023-08-08 13:00:00 2023-08-08 13:00:00 Outpatient HUNDL, SID JESSIKA GEORGE [id number] [facility] 2023-08-06 00:00:00 2023-08-06 00:00:00 Outpatient HUNDL, SID GEORGE [id number] [facility] 2023-08-02 00:00:00 2023-08-02 00:00:00 Outpatient HUNDL, SID JESSIKA GEORGE [id number] [facility] 2023-07-24 00:00:00 2023-07-24 00:00:00 Outpatient HUNDL, SID GEORGE [id number] [facility] 2023-07-23 00:00:00 2023-07-23 00:00:00 Outpatient PALOMA GONZALES [id number] [facility] 2023-07-22 00:00:00 2023-07-22 00:00:00 Outpatient MALA GREEN [id number] [facility] 2023-07-21 00:00:00 2023-07-21 00:00:00 Outpatient CHRISTIANPALOMA BURT JESSIKA GEORGE [id number] [facility] 2023-07-20 15:00:00 2023-07-20 15:00:00 Outpatient ARLIN MIKE JESSIKA GEORGE [id number] [facility] 2023-06-28 00:00:00 2023-06-28 00:00:00 Outpatient NILSONSANDY Bolivar JESSIKA GEORGE [id number] [facility] 2023-05-30 00:00:00 2023-05-30 00:00:00 Outpatient HUNDSID Espinoza [id number] [facility] 2023-04-28 00:00:00 2023-04-28 00:00:00 Outpatient HUNDL SID GEORGE [id number] [facility] 2023-04-26 00:00:00 2023-04-26 00:00:00 Outpatient HUNDAlexis SID GEORGE [id number] [facility] 2023-04-26 00:00:00 2023-04-26 00:00:00 Outpatient NILSONSANDY JESSIKA GEORGE [id number] [facility] 2023-03-28 00:00:00 2023-03-28 00:00:00 Outpatient CHRISTIAN PALOMA GEORGE [id number] [facility] 2023-03-07 00:00:00 2023-03-07 00:00:00 Outpatient CHRISTIANPALOMA BURT JESSIKA GEORGE [id number] [facility] 2023-03-07 00:00:00 2023-03-07 00:00:00 Outpatient HUNDAlexis SID GEORGE [id number] [facility] 2023-02-21 15:00:00 2023-02-21 15:00:00 Outpatient LIDIA HALE [id number] [facility] 2023-01-29 00:00:00 2023-01-29 00:00:00 Outpatient MALA GREEN [id number] [facility] 2022-12-20 14:15:00 2022-12-20 14:15:00 Outpatient LIDIA HALE [id number] [facility] 2022-12-15 00:00:00 2022-12-15 00:00:00 Outpatient SID PRINCE [id number] [facility] 2022-12-15 00:00:00 2022-12-15 00:00:00 Outpatient MD JESSIKA QUIGLEY [id number] [facility] 2022-12-11 13:30:00 2022-12-11 13:30:00 Outpatient SID PRINCE [id number] [facility] 2022-12-11 10:30:00 2022-12-11 10:30:00 Outpatient BATSHEVA GRIER [id number] [facility] 2022-12-06 08:30:00 2022-12-06 08:30:00 Outpatient HIRAM MACK [id number] [facility] 2022-11-29 10:30:00 2022-11-29 10:30:00 Outpatient LIDIA HALE [id number] [facility] 2022-11-24 13:20:00 2022-11-24 13:20:00 [id number] [facility]:00:00 2022-11-23 00:00:00 Outpatient PALOMA GONZALES [id number] [facility] 2022-11-22 08:05:00 2022-11-22 08:05:00 Outpatient LAB90 JESSIKA GEORGE [id number] [facility] 2022-11-13 11:00:00 2022-11-13 11:00:00 Outpatient SID PRINCE [id number] [facility] 2022-11-10 13:00:00 2022-11-10 13:00:00 Outpatient LIDIA HALE [id number] [facility] 2022-11-08 16:30:00 2022-11-08 16:30:00 Outpatient KRISTA LULU GEORGE [id number] [facility] 2022-11-03 00:00:00 2022-11-03 00:00:00 Outpatient MALA GREEN JESSIKA GEORGE [id number] [facility] 2022-11-01 00:00:00 2022-11-01 00:00:00 Outpatient SID PRINCE [id number] [facility] 2022-10-30 00:00:00 2022-10-30 00:00:00 Outpatient MALA GREEN JESSIKA GEORGE [id number] [facility] 2022-10-24 13:45:00 2022-10-24 13:45:00 Outpatient HALE LIDIA JESSIKA GEORGE [id number] [facility] 2022-10-18 14:20:00 2022-10-18 14:20:00 Outpatient AZIZA ALMEAN [id number] [facility] 2022-10-13 00:00:00 2022-10-13 00:00:00 Outpatient PALOMA GONZALES [id number] [facility] 2022-10-12 00:00:00 2022-10-12 00:00:00 Outpatient MD JESSIKA QUIGLEY [id number] [facility] 2022 00:00:00 2022 00:00:00 Outpatient SANDY DEVINE [id number] [facility] 2022-10-10 13:00:00 2022-10-10 13:00:00 Outpatient SID PRINCE [id number] [facility] 2022-10-10 09:00:00 2022-10-10 09:00:00 Outpatient SID PRINCE [id number] [facility] 2022-10-09 10:15:00 2022-10-09 10:15:00 Outpatient JESSIKA GEORGE [id number] [facility] 2022-09-22 00:00:00 2022-09-22 00:00:00 Outpatient MD JESSIKA QUIGLEY [id number] [facility] 2022-09-21 00:00:00 2022-09-21 00:00:00 Outpatient NILSONSANDY Bolivar JESSIKA GEORGE [id number] [facility] 2022-09-21 00:00:00 2022-09-21 00:00:00 Outpatient JESSIKA GEORGE [id number] [facility] 2022-09-18 13:45:00 2022-09-18 13:45:00 Outpatient CASSIE DARIUSZ JESSIKA GEORGE [id number] [facility] 2022-09-15 12:00:00 2022-09-15 12:00:00 Outpatient JESSIKA GEORGE [id number] [facility] 2022-09-15 00:00:00 2022-09-15 00:00:00 Outpatient GABRIELA SIMPSON [id number] [facility] 2022-09-14 15:00:00 2022-09-14 15:00:00 Outpatient TREMartell7 [facility]ESSIKA GEORGE [id number] [facility] 2022-09-14 13:55:00 2022-09-14 13:55:00 Outpatient NILSON SADNY JESSIKA GEORGE [id number] [facility] 2022-09-14 00:00:00 2022-09-14 00:00:00 Outpatient SANDY DEVINE [id number] [facility] 2022-09-11 00:00:00 2022-09-11 00:00:00 Outpatient PLAOMA GONZALES [id number] [facility] 2022-08-29 00:00:00 2022-08-29 00:00:00 Outpatient MALA GREEN [id number] [facility] 2022-08-25 08:50:00 2022-08-25 08:50:00 Outpatient LAB90 JESSIKA GEORGE [id number] [facility] 2022-08-24 00:00:00 2022-08-24 00:00:00 Outpatient DIANE WELSH [id number] [facility] 2022-08-16 11:00:00 2022-08-16 11:00:00 Outpatient NIKISID JESSIKA GEORGE [id number] [facility] 2022-08-10 00:00:00 2022-08-10 00:00:00 Outpatient PALOMA GONZALES [id number] [facility] 2022-08-07 00:00:00 2022-08-07 00:00:00 Outpatient PREZAS, MALA GEORGE [id number] [facility] 2022-08-07 00:00:00 2022-08-07 00:00:00 Outpatient PREZAS, MALA GEORGE [id number] [facility] 2022-07-27 11:30:00 2022-07-27 11:30:00 Outpatient PREZAS, MAAL GEORGE [id number] [facility] 2022-07-27 10:00:00 2022-07-27 10:00:00 Outpatient ANITHA, DIANE JESSIKA GEORGE [id number] [facility] 2022-07-13 00:00:00 2022-07-13 00:00:00 Outpatient PALOMA GONZALES [id number] [facility] 2022-07-13 00:00:00 2022-07-13 00:00:00 Outpatient PALOMA GONZALES [id number] [facility] 2022-07-11 10:25:00 2022-07-11 10:25:00 Outpatient SISNereyda GEROGE [id number] [facility] 2022-07-11 09:30:00 2022-07-11 09:30:00 Outpatient PALOMA GONZALES [id number] [facility] 2022-07-05 09:30:00 2022-07-05 09:30:00 Outpatient KIM ARANA [id number] [facility] 2022-07-05 09:30:00 2022-07-05 09:30:00 Outpatient PALOMA GONZALES [id number] [facility] 2021-12-26 10:36:32 2021-12-26 10:36:32 Outpatient [facility] [id number] Javier Jean Baptiste 2021-12-26 00:00:00 2021-12-26 00:00:00 Outpatient Visit [id number] 2021-11-05 00:00:00 2021-11-05 00:00:00 Outpatient Visit [id number] 2021-10-29 00:00:00 2021-10-29 00:00:00 Outpatient Visit [id number] Results Test Description Test Time Test Comments Results Result Co mments Source CULTURE, ANAEROBIC 2021-11-14 14:23:01 SPECIMEN NUMBER: [id number] CULTURE, ANAEROBIC SPECIMEN NUMBER: [id number] SPECIMEN COMMENT: WOUND L KNEE SOURCE: KNEE REPORT STATUS: FINAL DIRECT GRAM STAIN: NO WBCs SEEN NO BACTERIA SEEN FINAL REPORT: 11/14/2021 NO ANAEROBES RECOVERED AFTER 5 DAYS PRELIMINARY REPORT #2: 11/12/2021 NO ANAEROBES ISOLATED AT 3 DAYS PRELIMINARY ANAEROBE REPORT: 11/11/2021 NO ANAEROBES RECOVERED AFTER 48 HOURS UNLESS OTHERWISE INDICATED, [facility] [address] [place] [address] CONTRACTING OFFICER: YOLETTE GUEVARA M.D. CLIA NUMBER [id number] [place]. [id number] CULTURE, [id number] 00:00:00* Test Item Value Reference Range Interpretation Comme nts CULTURE, ANAEROBIC (test code = 68804) SPECIMEN NUMBER: [id number] HEMOGLOBIN [id number] 07:55:48* Test Item Value Reference Range Interpretation Comme nts HEMOGLOBIN A1c (test code = 72948) 7.5 % 4.2-5.6 H [employer] GUIDELINES FOR HGB A1C: [...] CONSIDER ALTERNATE TESTING OR LABORATORY CONSULTATION. HEMOGLOBIN [id number] 00:00:00* Test Item Value Reference Range Interpretation Comme nts HEMOGLOBIN A1c (test code = 10138) 7.5 % HEMOGLOBIN [id number] 00:00:00* Test Item Value Reference Range Interpretation Comme nts HEMOGLOBIN A1c (test code = 16584) 7.5 % HEMOGLOBIN [id number] 00:00:00* Test Item Value Reference Range Interpretation Comme nts HEMOGLOBIN A1c (test code = 38796) 7.5 % COMPREHENSIVE METABOLIC [id number] 05:02:43* Test Item Value Reference Range Interpretation Comme nts GLUCOSE (test code = 2217) 118 MG/DL 70-99 H BUN (test code = 2208) 13 MG/DL 8-23 CREATININE (test code = 2214) 0.82 MG/DL 0.80-1.40 eGFR (2020 CKD-EPI) (test code = 24848) 100 ML/MIN/1.73 >60 CALC BUN/CREAT (test code = 2235) 16 RATIO 6-28 SODIUM (test code = 223) 139 MEQ/L 133-146 POTASSIUM (test code = 2228) 3.9 MEQ/L 3.5-5.4 CHLORIDE (test code = 2215) 100 MEQ/L 95-107 CARBON DIOXIDE (test code = 2206) 26 MEQ/L 19-31 CALCIUM (test code = 2209) 10.0 MG/DL 8.5-10.5 PROTEIN, TOTAL (test code = 2228) 7.2 G/DL 6.1-8.3 ALBUMIN (test code = 2200) 4.5 G/DL 3.5-5.2 CALC GLOBULIN (test code = 2240) 2.7 G/DL 1.9-3.7 CALC A/G RATIO (test code = 223) 1.7 RATIO 1.0-2.6 BILIRUBIN, TOTAL (test code = 2207) 0.5 MG/DL See_Comment [Automated me ssage] The system which generated this result transmitted reference range: <=1.2. The reference range was not used to interpret this result as normal/abnormal. ALKALINE PHOSPHATASE (test code = 2203) 71 U/L 40-123 AST (test code = 2218) 26 U/L 9-50 ALT (test code = 2219) 42 U/L 5-50 LIPID [id number] 05:02:43* Test Item Value Reference Range Interpretation Comme nts CHOLESTEROL (test code = 0) 248 MG/DL <200 H TRIGLYCERIDES (test code = 2232) 156 MG/DL <150 H HDL CHOLESTEROL (test code = 2220) 41 MG/DL >39 CALC LDL CHOL (test code = 2237) 177 MG/DL <100 H NOTE: CALCULATED LDL IS BASED ON JOHN-GOLDMAN METHOD WHICHINCLUDES ADJUSTABLE TRIGLYCERIDE:VLDL CHOLESTEROL RATIO.THIS FACTOR VARIES BY MEASURED TRIGLYCERIDE AND NON-HDLCHOLESTEROL CONCENTRATIONS WITH INCREASED CALCULATED LDL SEENIN HIGHER TRIGLYCERIDE OR LOWER NON-HDL SPECIMENS. FOR MOREINFORMATION, SEE CLIENT ANNOUNCEMENT AT [email or web address] Card /CalcLDL-C RISK RATIO LDL/HDL (test code = 223) 4.32 RATIO <3.55 H UNLESS OTHERW ISE INDICATED, ALL TESTING PERFORMED [facility] [address] [place] [address] CONTRACTING OFFICER: YOLETTE GUEVARA M.D. CLIA NUMBER [id number] [facility] [place]. [id number] COMPREHENSIVE METABOLIC [id number] 00:00:00* Test Item Value Reference Range Interpretation Comme nts GLUCOSE (test code = 2216) 118 MG/DL BUN (test code = 2207) 13 MG/DL CREATININE (test code = 2214) 0.82 MG/DL eGFR (2020 CKD-EPI) (test code = 13366) 100 ML/MIN/1.73 CALC BUN/CREAT (test code = 2235) 16 RATIO SODIUM (test code = 223) 139 MEQ/L POTASSIUM (test code = 2228) [...] code = 2219) 42 U/L COMPREHENSIVE METABOLIC [id number] 00:00:00* Test Item Value Reference Range Interpretation Comme nts GLUCOSE (test code = 2217) 118 MG/DL BUN (test code = 2208) 13 MG/DL CREATININE (test code = 2214) 0.82 MG/DL eGFR (2020 CKD-EPI) (test code = 28392) 100 ML/MIN/1.73 CALC BUN/CREAT (test code = [...] (test code = 2219) 42 U/L LIPID [id number] 00:00:00* Test Item Value Reference Range Interpretation Comme nts CHOLESTEROL (test code = 2210) 248 MG/DL TRIGLYCERIDES (test code = 2232) 156 MG/DL HDL CHOLESTEROL (test code = 2220) 41 MG/DL CALC LDL CHOL (test code = 2237) 177 MG/DL RISK RATIO LDL/HDL (test cod e = 2238) 4.32 RATIO LIPID [id number] 00:00:00* Test Item Value Reference Range Interpretation Comme nts CHOLESTEROL (test code = 2210) 248 MG/DL TRIGLYCERIDES (test code = 2232) 156 MG/DL HDL CHOLESTEROL (test code = 2220) 41 MG/DL CALC LDL CHOL (test code = 2237) 177 MG/DL RISK RATIO LDL/HDL (test cod e = 2238) 4.32 RATIO LIPID [id number] 03:48:15* Test Item Value Reference Range Interpretation [...] SPECIMENS. FOR MOREINFORMATION, SEE CLIENT ANNOUNCEMENT AT [email or web address] Card /CalcLDL-C RISK RATIO LDL/HDL (test code = 2238) 5.31 RATIO <3.55 H COMPREHENSIVE METABOLIC [id number] 03:48:15* Test Item Value Reference Range Interpretation Comme nts GLUCOSE (test code = 2217) 132 MG/DL 70-99 H BUN (test code = 220) 9 MG/DL 8-23 CREATININE (test code = 2214) 0.74 MG/DL 0.80-1.40 L eGFR (2020 CKD-EPI) (test code = 95209) 104 ML/MIN/1.73 >60 CALC BUN/CREAT (test code = 2235) 12 RATIO 6-28 SODIUM (test code = 2231) 140 MEQ/L 133-146 POTASSIUM (test code = 2228) 3.9 MEQ/L 3.5-5.4 CHLORIDE (test code = 2215) 100 MEQ/L 95-107 CARBON DIOXIDE (test code = 220) 28 MEQ/L 19-31 CALCIUM (test code = 220) 9.8 MG/DL 8.5-10.5 PROTEIN, TOTAL (test code = 2229) 7.2 G/DL 6.1-8.3 ALBUMIN (test code = 2201) 4.4 G/DL 3.5-5.2 CALC GLOBULIN (test code = 2240) 2.8 G/DL 1.9-3.7 CALC A/G RATIO (test code = 2234) 1.6 RATIO 1.0-2.6 BILIRUBIN, TOTAL (test code = 2207) 0.7 MG/DL See_Comment [Automated me ssage] The system which generated this result transmitted reference range: <=1.2. The reference range was not used to interpret this result as normal/abnormal. ALKALINE PHOSPHATASE (test code = 2204) 72 U/L 40-123 AST (test code = 2218) 25 U/L 9-50 ALT (test code = 2219) 39 U/L 5-50 UNLESS OTHERWISE INDICATED, ALL TESTING PERFORMED [facility] [employer] [address] [place] [address] CONTRACTING OFFICER: YOLETTE GUEVARA M.D. IA NUMBER [id number] [facility] [place] [place]. [id number] HEMOGLOBIN [id number] 03:27:52* Test Item Value Reference Range Interpretation Comme nts HEMOGLOBIN A1c (test code = 13453) 7.7 % 4.2-5.6 H [employer] GUIDELINES FOR HGB A1C: [...] CONSIDER ALTERNATE TESTING OR LABORATORY CONSULTATION. LIPID [id number] 00:00:00* Test Item Value Reference Range Interpretation Comme nts CHOLESTEROL (test code = 2210) 246 MG/DL TRIGLYCERIDES (test code = 2232) 118 MG/DL HDL CHOLESTEROL (test code = 2220) 35 MG/DL CALC LDL CHOL (test code = 2237) 186 MG/DL RISK RATIO LDL/HDL (test cod e = 2238) 5.31 RATIO HEMOGLOBIN [id number] 00:00:00* Test Item Value Reference Range Interpretation Comme nts HEMOGLOBIN A1c (test code = 02846) 7.7 % HEMOGLOBIN [id number] 00:00:00* Test Item Value Reference Range Interpretation Comme nts HEMOGLOBIN A1c (test code = 25280) 7.7 % COMPREHENSIVE METABOLIC [id number] 00:00:00* Test Item Value Reference Range Interpretation Comme nts GLUCOSE (test code = 2217) 132 MG/DL BUN (test code = 2208) 9 MG/DL CREATININE (test code = 2214) 0.74 MG/DL eGFR (2020 CKD-EPI) (test code = 64425) 104 ML/MIN/1.73 CALC BUN/CREAT (test code = [...] (test code = 2219) 39 U/L LIPID [id number] 00:00:00* Test Item Value Reference Range Interpretation Comme nts CHOLESTEROL (test code = 2210) 246 MG/DL TRIGLYCERIDES (test code = 2232) 118 MG/DL HDL CHOLESTEROL (test code = 2220) 35 MG/DL CALC LDL CHOL (test code = 2237) 186 MG/DL RISK RATIO LDL/HDL (test cod e = 2238) 5.31 RATIO LIPID [id number] 00:00:00* Test Item Value Reference Range Interpretation Comme nts CHOLESTEROL (test code = 2210) 246 MG/DL TRIGLYCERIDES (test code = 2232) 118 MG/DL HDL CHOLESTEROL (test code = 2220) 35 MG/DL CALC LDL CHOL (test code = 2237) 186 MG/DL RISK RATIO LDL/HDL (test cod e = 2238) 5.31 RATIO HEMOGLOBIN [id number] 00:00:00* Test Item Value Reference Range Interpretation Comme nts HEMOGLOBIN A1c (test code = 73500) 7.7 % HEMOGLOBIN [id number] 00:00:00* Test Item Value Reference Range Interpretation Comme nts HEMOGLOBIN A1c (test code = 38337) 7.7 % HEMOGLOBIN [id number] 00:00:00* Test Item Value Reference Range Interpretation Comme nts HEMOGLOBIN A1c (test code = 24963) 7.7 % COMPREHENSIVE METABOLIC [id number] 00:00:00* Test Item Value Reference Range Interpretation Comme nts GLUCOSE (test code = 2217) 132 MG/DL BUN (test code = 2208) 9 MG/DL CREATININE (test code = 2214) 0.74 MG/DL eGFR (2020 CKD-EPI) (test code = 80795) 104 ML/MIN/1.73 CALC BUN/CREAT (test code = [...] code = 2219) 39 U/L COMPREHENSIVE METABOLIC [id number] 00:00:00* Test Item Value Reference Range Interpretation Comme nts GLUCOSE (test code = 2217) 132 MG/DL BUN (test code = 2208) 9 MG/DL CREATININE (test code = 2214) 0.74 MG/DL eGFR (2020 CKD-EPI) (test code = 34990) 104 ML/MIN/1.73 CALC BUN/CREAT (test code = [...] (test code = 2219) 39 U/L LIPID [id number] 00:00:00* Test Item Value Reference Range Interpretation Comme nts CHOLESTEROL (test code = 2210) 246 MG/DL TRIGLYCERIDES (test code = 2232) 118 MG/DL HDL CHOLESTEROL (test code = 2220) 35 MG/DL CALC LDL CHOL (test code = 2237) 186 MG/DL RISK RATIO LDL/HDL (test cod e = 2238) 5.31 RATIO LIPID [id number] 00:00:00* Test Item Value Reference Range Interpretation Comme nts CHOLESTEROL (test code = 2210) 246 MG/DL TRIGLYCERIDES (test code = 2232) 118 MG/DL HDL CHOLESTEROL (test code = 2220) 35 MG/DL CALC LDL CHOL (test code = 2237) 186 MG/DL RISK RATIO LDL/HDL (test cod e = 2238) 5.31 RATIO HEMOGLOBIN [id number] 00:00:00* Test Item Value Reference Range Interpretation Comme nts HEMOGLOBIN A1c (test code = 67775) 7.7 % HEMOGLOBIN [id number] 00:00:00* Test Item Value Reference Range Interpretation Comme nts HEMOGLOBIN A1c (test code = 78048) 7.7 % HEMOGLOBIN [id number] 00:00:00* Test Item Value Reference Range Interpretation Comme nts HEMOGLOBIN A1c (test code = 58516) 7.7 % COMPREHENSIVE METABOLIC [id number] 00:00:00* Test Item Value Reference Range Interpretation Comme nts GLUCOSE (test code = 2217) 132 MG/DL BUN (test code = 2208) 9 MG/DL CREATININE (test code = 2214) 0.74 MG/DL eGFR (2020 CKD-EPI) (test code = 04192) 104 ML/MIN/1.73 CALC BUN/CREAT (test code = [...] code = 2219) 39 U/L COMPREHENSIVE METABOLIC [id number] 00:00:00* Test Item Value Reference Range Interpretation Comme nts GLUCOSE (test code = 2217) 132 MG/DL BUN (test code = 2208) 9 MG/DL CREATININE (test code = 2214) 0.74 MG/DL eGFR (2020 CKD-EPI) (test code = 81380) 104 ML/MIN/1.73 CALC BUN/CREAT (test code = [...] (test code = 2219) 39 U/L HEMOGLOBIN [id number] 00:00:00* Test Item Value Reference Range Interpretation Comme nts HEMOGLOBIN A1c (test code = 58541) 7.2 % HEMOGLOBIN [id number] 00:00:00* Test Item Value Reference Range Interpretation Comme nts HEMOGLOBIN A1c (test code = 34304) 7.2 % LIPID [id number] 00:00:00* Test Item Value Reference Range Interpretation Comme nts CHOLESTEROL (test code = 2210) 234 MG/DL TRIGLYCERIDES (test code = 2232) 130 MG/DL HDL CHOLESTEROL (test code = 2220) 39 MG/DL CALC LDL CHOL (test code = 2237) 168 MG/DL RISK RATIO LDL/HDL (test cod e = 2238) 4.31 RATIO COMPREHENSIVE METABOLIC [id number] 00:00:00* Test Item Value Reference Range Interpretation Comme nts GLUCOSE (test code = 2217) 152 MG/DL BUN (test code = 2208) 11 MG/DL CREATININE (test code = 2214) 0.72 MG/DL eGFR AMER. (test cod e = 25505) 118 ML/MIN/1.73 eGFR NON- AMER. (test code = 42609) 102 ML/MIN/1.73 CALC BUN/CREAT (test code = [...] (test code = 2219) 65 U/L HEMOGLOBIN [id number] 00:00:00* Test Item Value Reference Range Interpretation Comme nts HEMOGLOBIN A1c (test code = 21477) 7.2 % HEMOGLOBIN [id number] 00:00:00* Test Item Value Reference Range Interpretation Comme nts HEMOGLOBIN A1c (test code = 51285) 7.2 % HEMOGLOBIN [id number] 00:00:00* Test Item Value Reference Range Interpretation Comme nts HEMOGLOBIN A1c (test code = 55904) 7.2 % LIPID [id number] 00:00:00* Test Item Value Reference Range Interpretation Comme nts CHOLESTEROL (test code = 2210) 234 MG/DL TRIGLYCERIDES (test code = 2232) 130 MG/DL HDL CHOLESTEROL (test code = 2220) 39 MG/DL CALC LDL CHOL (test code = 2237) 168 MG/DL RISK RATIO LDL/HDL (test cod e = 2238) 4.31 RATIO LIPID [id number] 00:00:00* Test Item Value Reference Range Interpretation Comme nts CHOLESTEROL (test code = 2210) 234 MG/DL TRIGLYCERIDES (test code = 2232) 130 MG/DL HDL CHOLESTEROL (test code = 2220) 39 MG/DL CALC LDL CHOL (test code = 2237) 168 MG/DL RISK RATIO LDL/HDL (test cod e = 2238) 4.31 RATIO COMPREHENSIVE METABOLIC [id number] 00:00:00* Test Item Value Reference Range Interpretation Comme nts GLUCOSE (test code = 2217) 152 MG/DL BUN (test code = 2208) 11 MG/DL CREATININE (test code = 2214) 0.72 MG/DL eGFR AMER. (test cod e = 32415) 118 ML/MIN/1.73 eGFR NON- AMER. (test code = 45558) 102 ML/MIN/1.73 CALC BUN/CREAT (test code = [...] code = 2219) 65 U/L COMPREHENSIVE METABOLIC [id number] 00:00:00* Test Item Value Reference Range Interpretation Comme nts GLUCOSE (test code = 2217) 152 MG/DL BUN (test code = 2208) 11 MG/DL CREATININE (test code = 2214) 0.72 MG/DL eGFR AMER. (test cod e = 03825) 118 ML/MIN/1.73 eGFR NON- AMER. (test code = 60786) 102 ML/MIN/1.73 CALC BUN/CREAT (test code = [...] (test code = 2219) 65 U/L HEMOGLOBIN [id number] 00:00:00* Test Item Value Reference Range Interpretation Comme nts HEMOGLOBIN A1c (test code = 21333) 7.2 % HEMOGLOBIN [id number] 00:00:00* Test Item Value Reference Range Interpretation Comme nts HEMOGLOBIN A1c (test code = 20860) 7.2 % HEMOGLOBIN [id number] 00:00:00* Test Item Value Reference Range Interpretation Comme nts HEMOGLOBIN A1c (test code = 06988) 7.2 % LIPID [id number] 00:00:00* Test Item Value Reference Range Interpretation Comme nts CHOLESTEROL (test code = 2210) 234 MG/DL TRIGLYCERIDES (test code = 2232) 130 MG/DL HDL CHOLESTEROL (test code = 2220) 39 MG/DL CALC LDL CHOL (test code = 2237) 168 MG/DL RISK RATIO LDL/HDL (test cod e = 2238) 4.31 RATIO LIPID [id number] 00:00:00* Test Item Value Reference Range Interpretation Comme nts CHOLESTEROL (test code = 2210) 234 MG/DL TRIGLYCERIDES (test code = 2232) 130 MG/DL HDL CHOLESTEROL (test code = 2220) 39 MG/DL CALC LDL CHOL (test code = 2237) 168 MG/DL RISK RATIO LDL/HDL (test cod e = 2238) 4.31 RATIO COMPREHENSIVE METABOLIC [id number] 00:00:00* Test Item Value Reference Range Interpretation Comme nts GLUCOSE (test code = 2217) 152 MG/DL BUN (test code = 2208) 11 MG/DL CREATININE (test code = 2214) 0.72 MG/DL eGFR AMER. (test cod e = 45166) 118 ML/MIN/1.73 eGFR NON- AMER. (test code = 70626) 102 ML/MIN/1.73 CALC BUN/CREAT (test code = [...] code = 2219) 65 U/L COMPREHENSIVE METABOLIC [id number] 00:00:00* Test Item Value Reference Range Interpretation Comme nts GLUCOSE (test code = 2217) 152 MG/DL BUN (test code = 2208) 11 MG/DL CREATININE (test code = 2214) 0.72 MG/DL eGFR AMER. (test cod e = 16954) 118 ML/MIN/1.73 eGFR NON- AMER. (test code = 30030) 102 ML/MIN/1.73 CALC BUN/CREAT (test code = 2235) 15 RATIO SODIUM (test code = 2231) 136 MEQ/L POTASSIUM (test code = 2228) 4.5 MEQ/L CHLORIDE (test code = 2215) 99 MEQ/L CARBON DIOXIDE (test code = 2206) 26 MEQ/L CALCIUM (test code = 2209) 9.5 MG/DL PROTEIN, TOTAL (test code = 222) 6.9 G/DL ALBUMIN (test code = 2201) 4.5 G/DL CALC GLOBULIN (test code = 2240) 2.4 G/DL CALC A/G RATIO (test code = 2234) 1.9 RATIO BILIRUBIN, TOTAL (test code = 2207) 0.5 MG/DL ALKALINE PHOSPHATASE (test code = 2204) 70 U/L AST (test code = 2218) 36 U/L ALT (test code = 2219) 65 U/L HEMOGLOBIN [id number] 00:00:00* Test Item Value Reference Range Interpretation Comme nts HEMOGLOBIN A1c (test code = 32005) 7.0 % HEMOGLOBIN [id number] 00:00:00* Test Item Value Reference Range Interpretation Comme nts HEMOGLOBIN A1c (test code = 53283) 7.0 % LIPID [id number] 00:00:00* Test Item Value Reference Range Interpretation Comme nts CHOLESTEROL (test code = 2210) 228 MG/DL TRIGLYCERIDES (test code = 2232) 172 MG/DL HDL CHOLESTEROL (test code = 2220) 34 MG/DL CALC LDL CHOL (test code = 2237) 162 MG/DL RISK RATIO LDL/HDL (test cod e = 2238) 4.76 RATIO COMPREHENSIVE METABOLIC [id number] 00:00:00* Test Item Value Reference Range Interpretation Comme nts GLUCOSE (test code = 2217) 162 MG/DL BUN (test code = 2208) 16 MG/DL CREATININE (test code = 2214) 0.81 MG/DL eGFR AMER. (test cod e = 24282) 113 ML/MIN/1.73 eGFR NON- AMER. (test code = 16863) 97 ML/MIN/1.73 CALC BUN/CREAT (test code = [...] (test code = 2219) 53 U/L HEMOGLOBIN [id number] 00:00:00* Test Item Value Reference Range Interpretation Comme nts HEMOGLOBIN A1c (test code = 01109) 7.0 % HEMOGLOBIN [id number] 00:00:00* Test Item Value Reference Range Interpretation Comme nts HEMOGLOBIN A1c (test code = 59624) 7.0 % HEMOGLOBIN [id number] 00:00:00* Test Item Value Reference Range Interpretation Comme nts HEMOGLOBIN A1c (test code = 60594) 7.0 % LIPID [id number] 00:00:00* Test Item Value Reference Range Interpretation Comme nts CHOLESTEROL (test code = 2210) 228 MG/DL TRIGLYCERIDES (test code = 2232) 172 MG/DL HDL CHOLESTEROL (test code = 2220) 34 MG/DL CALC LDL CHOL (test code = 2237) 162 MG/DL RISK RATIO LDL/HDL (test cod e = 2238) 4.76 RATIO LIPID [id number] 00:00:00* Test Item Value Reference Range Interpretation Comme nts CHOLESTEROL (test code = 2210) 228 MG/DL TRIGLYCERIDES (test code = 2232) 172 MG/DL HDL CHOLESTEROL (test code = 2220) 34 MG/DL CALC LDL CHOL (test code = 2237) 162 MG/DL RISK RATIO LDL/HDL (test cod e = 2238) 4.76 RATIO COMPREHENSIVE METABOLIC [id number] 00:00:00* Test Item Value Reference Range Interpretation Comme nts GLUCOSE (test code = 2217) 162 MG/DL BUN (test code = 2208) 16 MG/DL CREATININE (test code = 2214) 0.81 MG/DL eGFR AMER. (test cod e = 75745) 113 ML/MIN/1.73 eGFR NON- AMER. (test code = 06596) 97 ML/MIN/1.73 CALC BUN/CREAT (test code = [...] code = 2219) 53 U/L COMPREHENSIVE METABOLIC [id number] 00:00:00* Test Item Value Reference Range Interpretation Comme nts GLUCOSE (test code = 2217) 162 MG/DL BUN (test code = 2208) 16 MG/DL CREATININE (test code = 2214) 0.81 MG/DL eGFR AMER. (test cod e = 18823) 113 ML/MIN/1.73 eGFR NON- AMER. (test code = 34516) 97 ML/MIN/1.73 CALC BUN/CREAT (test code = [...] (test code = 2219) 53 U/L HEMOGLOBIN [id number] 00:00:00* Test Item Value Reference Range Interpretation Comme nts HEMOGLOBIN A1c (test code = 51034) 7.0 % HEMOGLOBIN [id number] 00:00:00* Test Item Value Reference Range Interpretation Comme nts HEMOGLOBIN A1c (test code = 11838) 7.0 % HEMOGLOBIN [id number] 00:00:00* Test Item Value Reference Range Interpretation Comme nts HEMOGLOBIN A1c (test code = 81466) 7.0 % LIPID [id number] 00:00:00* Test Item Value Reference Range Interpretation Comme nts CHOLESTEROL (test code = 2210) 228 MG/DL TRIGLYCERIDES (test code = 2232) 172 MG/DL HDL CHOLESTEROL (test code = 2220) 34 MG/DL CALC LDL CHOL (test code = 2237) 162 MG/DL RISK RATIO LDL/HDL (test cod e = 2238) 4.76 RATIO LIPID [id number] 00:00:00* Test Item Value Reference Range Interpretation Comme nts CHOLESTEROL (test code = 2210) 228 MG/DL TRIGLYCERIDES (test code = 2232) 172 MG/DL HDL CHOLESTEROL (test code = 2220) 34 MG/DL CALC LDL CHOL (test code = 2237) 162 MG/DL RISK RATIO LDL/HDL (test cod e = 2238) 4.76 RATIO COMPREHENSIVE METABOLIC [id number] 00:00:00* Test Item Value Reference Range Interpretation Comme nts GLUCOSE (test code = 2217) 162 MG/DL BUN (test code = 2208) 16 MG/DL CREATININE (test code = 2214) 0.81 MG/DL eGFR AMER. (test cod e = 37204) 113 ML/MIN/1.73 eGFR NON- AMER. (test code = 54750) 97 ML/MIN/1.73 CALC BUN/CREAT (test code = [...] code = 2219) 53 U/L COMPREHENSIVE METABOLIC [id number] 00:00:00* Test Item Value Reference Range Interpretation Comme nts GLUCOSE (test code = 2217) 162 MG/DL BUN (test code = 2208) 16 MG/DL CREATININE (test code = 2214) 0.81 MG/DL eGFR AMER. (test cod e = 08823) 113 ML/MIN/1.73 eGFR NON- AMER. (test code = 12105) 97 ML/MIN/1.73 CALC BUN/CREAT (test code = [...] (test code = 2219) 53 U/L LIPID [id number] 00:00:00* Test Item Value Reference Range Interpretation Comme nts CHOLESTEROL (test code = 2210) 243 MG/DL TRIGLYCERIDES (test code = 2232) 133 MG/DL HDL CHOLESTEROL (test code = 2220) 44 MG/DL CALC LDL CHOL (test code = 2237) 172 MG/DL RISK RATIO LDL/HDL (test cod e = 2238) 3.91 RATIO HEMOGLOBIN [id number] 00:00:00* Test Item Value Reference Range Interpretation Comme nts HEMOGLOBIN A1c (test code = 46668) 6.8 % HEMOGLOBIN [id number] 00:00:00* Test Item Value Reference Range Interpretation Comme nts HEMOGLOBIN A1c (test code = 39194) 6.8 % LIPID [id number] 00:00:00* Test Item Value Reference Range Interpretation Comme nts CHOLESTEROL (test code = 2210) 243 MG/DL TRIGLYCERIDES (test code = 2232) 133 MG/DL HDL CHOLESTEROL (test code = 2220) 44 MG/DL CALC LDL CHOL (test code = 2237) 172 MG/DL RISK RATIO LDL/HDL (test cod e = 2238) 3.91 RATIO LIPID [id number] 00:00:00* Test Item Value Reference Range Interpretation Comme nts CHOLESTEROL (test code = 2210) 243 MG/DL TRIGLYCERIDES (test code = 2232) 133 MG/DL HDL CHOLESTEROL (test code = 2220) 44 MG/DL CALC LDL CHOL (test code = 2237) 172 MG/DL RISK RATIO LDL/HDL (test cod e = 2238) 3.91 RATIO HEMOGLOBIN [id number] 00:00:00* Test Item Value Reference Range Interpretation Comme nts HEMOGLOBIN A1c (test code = 22272) 6.8 % HEMOGLOBIN [id number] 00:00:00* Test Item Value Reference Range Interpretation Comme nts HEMOGLOBIN A1c (test code = 87100) 6.8 % HEMOGLOBIN [id number] 00:00:00* Test Item Value Reference Range Interpretation Comme nts HEMOGLOBIN A1c (test code = 68873) 6.8 % LIPID [id number] 00:00:00* Test Item Value Reference Range Interpretation Comme nts CHOLESTEROL (test code = 2210) 243 MG/DL TRIGLYCERIDES (test code = 2232) 133 MG/DL HDL CHOLESTEROL (test code = 2220) 44 MG/DL CALC LDL CHOL (test code = 2237) 172 MG/DL RISK RATIO LDL/HDL (test cod e = 2238) 3.91 RATIO LIPID [id number] 00:00:00* Test Item Value Reference Range Interpretation Comme nts CHOLESTEROL (test code = 2210) 243 MG/DL TRIGLYCERIDES (test code = 2232) 133 MG/DL HDL CHOLESTEROL (test code = 2220) 44 MG/DL CALC LDL CHOL (test code = 2237) 172 MG/DL RISK RATIO LDL/HDL (test cod e = 2238) 3.91 RATIO HEMOGLOBIN [id number] 00:00:00* Test Item Value Reference Range Interpretation Comme nts HEMOGLOBIN A1c (test code = 72031) 6.8 % HEMOGLOBIN [id number] 00:00:00* Test Item Value Reference Range Interpretation Comme nts HEMOGLOBIN A1c (test code = 85508) 6.8 % HEMOGLOBIN [id number] 00:00:00* Test Item Value Reference Range Interpretation Comme nts HEMOGLOBIN A1c (test code = 71753) 6.8 % HEMOGLOBIN [id number] 00:00:00* Test Item Value Reference Range Interpretation Comme nts HEMOGLOBIN A1c (test code = 45736) 6.4 % HEMOGLOBIN [id number] 00:00:00* Test Item Value Reference Range Interpretation Comme nts HEMOGLOBIN A1c (test code = 61319) 6.4 % HEMOGLOBIN [id number] 00:00:00* Test Item Value Reference Range Interpretation Comme nts HEMOGLOBIN A1c (test code = 97432) 6.4 % HEMOGLOBIN [id number] 00:00:00* Test Item Value Reference Range Interpretation Comme nts HEMOGLOBIN A1c (test code = 39633) 6.4 % HEMOGLOBIN [id number] 00:00:00* Test Item Value Reference Range Interpretation Comme nts HEMOGLOBIN A1c (test code = 44246) 6.4 % HEMOGLOBIN [id number] 00:00:00* Test Item Value Reference Range Interpretation Comme nts HEMOGLOBIN A1c (test code = 91440) 6.4 % HEMOGLOBIN [id number] 00:00:00* Test Item Value Reference Range Interpretation Comme nts HEMOGLOBIN A1c (test code = 02615) 6.4 % HEMOGLOBIN [id number] 00:00:00* Test Item Value Reference Range Interpretation Comme nts HEMOGLOBIN A1c (test code = 28895) 6.4 % COMPREHENSIVE METABOLIC [id number] 00:00:00* Test Item Value Reference Range Interpretation Comme nts GLUCOSE (test code = 2217) 136 MG/DL BUN (test code = 2208) 12 MG/DL CREATININE (test code = 2214) 0.86 MG/DL eGFR AMER. (test cod e = 48858) 112 ML/MIN/1.73 eGFR NON- AMER. (test code = 19872) 96 ML/MIN/1.73 CALC BUN/CREAT (test code = [...] (test code = 2219) 38 U/L LIPID [id number] 00:00:00* Test Item Value Reference Range Interpretation Comme nts CHOLESTEROL (test code = 2210) 160 MG/DL TRIGLYCERIDES (test code = 2232) 91 MG/DL HDL CHOLESTEROL (test code = 2220) 36 MG/DL CALC LDL CHOL (test code = 2237) 106 MG/DL RISK RATIO LDL/HDL (test cod e = 2238) 2.94 RATIO HEMOGLOBIN [id number] 00:00:00* Test Item Value Reference Range Interpretation Comme nts HEMOGLOBIN A1c (test code = 45534) 6.9 % HEMOGLOBIN [id number] 00:00:00* Test Item Value Reference Range Interpretation Comme nts HEMOGLOBIN A1c (test code = 42564) 6.9 % COMPREHENSIVE METABOLIC [id number] 00:00:00* Test Item Value Reference Range Interpretation Comme nts GLUCOSE (test code = 2217) 136 MG/DL BUN (test code = 2208) 12 MG/DL CREATININE (test code = 2214) 0.86 MG/DL eGFR AMER. (test cod e = 24060) 112 ML/MIN/1.73 eGFR NON- AMER. (test code = 01701) 96 ML/MIN/1.73 CALC BUN/CREAT (test code = [...] code = 2219) 38 U/L COMPREHENSIVE METABOLIC [id number] 00:00:00* Test Item Value Reference Range Interpretation Comme nts GLUCOSE (test code = 2217) 136 MG/DL BUN (test code = 2208) 12 MG/DL CREATININE (test code = 2214) 0.86 MG/DL eGFR AMER. (test cod e = 04222) 112 ML/MIN/1.73 eGFR NON- AMER. (test code = 51893) 96 ML/MIN/1.73 CALC BUN/CREAT (test code = [...] (test code = 2219) 38 U/L LIPID [id number] 00:00:00* Test Item Value Reference Range Interpretation Comme nts CHOLESTEROL (test code = 2210) 160 MG/DL TRIGLYCERIDES (test code = 2232) 91 MG/DL HDL CHOLESTEROL (test code = 2220) 36 MG/DL CALC LDL CHOL (test code = 2237) 106 MG/DL RISK RATIO LDL/HDL (test cod e = 2238) 2.94 RATIO LIPID [id number] 00:00:00* Test Item Value Reference Range Interpretation Comme nts CHOLESTEROL (test code = 2210) 160 MG/DL TRIGLYCERIDES (test code = 2232) 91 MG/DL HDL CHOLESTEROL (test code = 2220) 36 MG/DL CALC LDL CHOL (test code = 2237) 106 MG/DL RISK RATIO LDL/HDL (test cod e = 2238) 2.94 RATIO HEMOGLOBIN [id number] 00:00:00* Test Item Value Reference Range Interpretation Comme nts HEMOGLOBIN A1c (test code = 96546) 6.9 % HEMOGLOBIN [id number] 00:00:00* Test Item Value Reference Range Interpretation Comme nts HEMOGLOBIN A1c (test code = 94219) 6.9 % HEMOGLOBIN [id number] 00:00:00* Test Item Value Reference Range Interpretation Comme nts HEMOGLOBIN A1c (test code = 24312) 6.9 % COMPREHENSIVE METABOLIC [id number] 00:00:00* Test Item Value Reference Range Interpretation Comme nts GLUCOSE (test code = 2217) 136 MG/DL BUN (test code = 2208) 12 MG/DL CREATININE (test code = 2214) 0.86 MG/DL eGFR AMER. (test cod e = 34095) 112 ML/MIN/1.73 eGFR NON- AMER. (test code = 08340) 96 ML/MIN/1.73 CALC BUN/CREAT (test code = [...] code = 2219) 38 U/L COMPREHENSIVE METABOLIC [id number] 00:00:00* Test Item Value Reference Range Interpretation Comme nts GLUCOSE (test code = 2217) 136 MG/DL BUN (test code = 2208) 12 MG/DL CREATININE (test code = 2214) 0.86 MG/DL eGFR AMER. (test cod e = 97872) 112 ML/MIN/1.73 eGFR NON- AMER. (test code = 84023) 96 ML/MIN/1.73 CALC BUN/CREAT (test code = [...] (test code = 2219) 38 U/L LIPID [id number] 00:00:00* Test Item Value Reference Range Interpretation Comme nts CHOLESTEROL (test code = 2210) 160 MG/DL TRIGLYCERIDES (test code = 2232) 91 MG/DL HDL CHOLESTEROL (test code = 2220) 36 MG/DL CALC LDL CHOL (test code = 2237) 106 MG/DL RISK RATIO LDL/HDL (test cod e = 2238) 2.94 RATIO LIPID [id number] 00:00:00* Test Item Value Reference Range Interpretation Comme nts CHOLESTEROL (test code = 2210) 160 MG/DL TRIGLYCERIDES (test code = 2232) 91 MG/DL HDL CHOLESTEROL (test code = 2220) 36 MG/DL CALC LDL CHOL (test code = 2237) 106 MG/DL RISK RATIO LDL/HDL (test cod e = 2238) 2.94 RATIO HEMOGLOBIN [id number] 00:00:00* Test Item Value Reference Range Interpretation Comme nts HEMOGLOBIN A1c (test code = 47283) 6.9 % HEMOGLOBIN [id number] 00:00:00* Test Item Value Reference Range Interpretation Comme nts HEMOGLOBIN A1c (test code = 08935) 6.9 % HEMOGLOBIN [id number] 00:00:00* Test Item Value Reference Range Interpretation Comme nts HEMOGLOBIN A1c (test code = 93800) 6.9 % HEMOGLOBIN [id number] 00:00:00* Test Item Value Reference Range Interpretation Comme nts HEMOGLOBIN A1c (test code = 69513) 6.4 % HEMOGLOBIN [id number] 00:00:00* Test Item Value Reference Range Interpretation Comme nts HEMOGLOBIN A1c (test code = 46904) 6.4 % CBC W/AUTO [id number] 00:00:00* Test Item Value Reference Range Interpretation [...] code = 1015) 217 K/UL CBC W/AUTO [id number] 00:00:00* Test Item Value Reference Range Interpretation [...] code = 1015) 217 K/UL COMPREHENSIVE METABOLIC [id number] 00:00:00* Test Item Value Reference Range Interpretation Comme nts GLUCOSE (test code = 2217) 142 MG/DL BUN (test code = 2208) 15 MG/DL CREATININE (test code = 2214) 0.83 MG/DL eGFR AMER. (test cod e = 79132) 113 ML/MIN/1.73 eGFR NON- AMER. (test code = 10746) 98 ML/MIN/1.73 CALC BUN/CREAT (test code = [...] (test code = 2219) 45 U/L LIPID [id number] 00:00:00* Test Item Value Reference Range Interpretation Comme nts CHOLESTEROL (test code = 2210) 224 MG/DL TRIGLYCERIDES (test code = 2232) 104 MG/DL HDL CHOLESTEROL (test code = 2220) 40 MG/DL CALC LDL CHOL (test code = 2237) 163 MG/DL RISK RATIO LDL/HDL (test cod e = 2238) 4.08 RATIO PSA, [id number] 00:00:00* Test Item Value Reference Range Interpretation Comme nts PSA, TOTAL (test code = 2606) 0.51 NG/ML PSA, [id number] 00:00:00* Test Item Value Reference Range Interpretation Comme nts PSA, TOTAL (test code = 2606) 0.51 NG/ML [id number] 00:00:00* Test Item Value Reference Range Interpretation Comme nts TSH, THIRD GENERATION (test code = 2821) 1.250 UIU/ML [id number] 00:00:00* Test Item Value Reference Range Interpretation Comme nts TSH, THIRD GENERATION (test code = 2821) 1.250 UIU/ML HEMOGLOBIN [id number] 00:00:00* Test Item Value Reference Range Interpretation Comme nts HEMOGLOBIN A1c (test code = 80391) 6.4 % HEMOGLOBIN [id number] 00:00:00* Test Item Value Reference Range Interpretation Comme nts HEMOGLOBIN A1c (test code = 04649) 6.4 % HEMOGLOBIN [id number] 00:00:00* Test Item Value Reference Range Interpretation Comme nts HEMOGLOBIN A1c (test code = 82605) 6.4 % CBC W/AUTO [id number] 00:00:00* Test Item Value Reference Range Interpretation [...] code = 1015) 217 K/UL CBC W/AUTO [id number] 00:00:00* Test Item Value Reference Range Interpretation [...] code = 1015) 217 K/UL CBC W/AUTO [id number] 00:00:00* Test Item Value Reference Range Interpretation [...] code = 1015) 217 K/UL COMPREHENSIVE METABOLIC [id number] 00:00:00* Test Item Value Reference Range Interpretation Comme nts GLUCOSE (test code = 2217) 142 MG/DL BUN (test code = 2208) 15 MG/DL CREATININE (test code = 2214) 0.83 MG/DL eGFR AMER. (test cod e = 87814) 113 ML/MIN/1.73 eGFR NON- AMER. (test code = 01245) 98 ML/MIN/1.73 CALC BUN/CREAT (test code = [...] code = 2219) 45 U/L COMPREHENSIVE METABOLIC [id number] 00:00:00* Test Item Value Reference Range Interpretation Comme nts GLUCOSE (test code = 2217) 142 MG/DL BUN (test code = 2208) 15 MG/DL CREATININE (test code = 2214) 0.83 MG/DL eGFR AMER. (test cod e = 18334) 113 ML/MIN/1.73 eGFR NON- AMER. (test code = 73521) 98 ML/MIN/1.73 CALC BUN/CREAT (test code = [...] (test code = 2219) 45 U/L LIPID [id number] 00:00:00* Test Item Value Reference Range Interpretation Comme nts CHOLESTEROL (test code = 2210) 224 MG/DL TRIGLYCERIDES (test code = 2232) 104 MG/DL HDL CHOLESTEROL (test code = 2220) 40 MG/DL CALC LDL CHOL (test code = 2237) 163 MG/DL RISK RATIO LDL/HDL (test cod e = 2238) 4.08 RATIO LIPID [id number] 00:00:00* Test Item Value Reference Range Interpretation Comme nts CHOLESTEROL (test code = 2210) 224 MG/DL TRIGLYCERIDES (test code = 2232) 104 MG/DL HDL CHOLESTEROL (test code = 2220) 40 MG/DL CALC LDL CHOL (test code = 2237) 163 MG/DL RISK RATIO LDL/HDL (test cod e = 2238) 4.08 RATIO PSA, [id number] 00:00:00* Test Item Value Reference Range Interpretation Comme nts PSA, TOTAL (test code = 2606) 0.51 NG/ML PSA, [id number] 00:00:00* Test Item Value Reference Range Interpretation Comme nts PSA, TOTAL (test code = 2606) 0.51 NG/ML PSA, [id number] 00:00:00* Test Item Value Reference Range Interpretation Comme nts PSA, TOTAL (test code = 2606) 0.51 NG/ML [id number] 00:00:00* Test Item Value Reference Range Interpretation Comme nts TSH, THIRD GENERATION (test code = 2821) 1.250 UIU/ML [id number] 00:00:00* Test Item Value Reference Range Interpretation Comme nts TSH, THIRD GENERATION (test code = 2821) 1.250 UIU/ML [id number] 00:00:00* Test Item Value Reference Range Interpretation Comme nts TSH, THIRD GENERATION (test code = 2821) 1.250 UIU/ML HEMOGLOBIN [id number] 00:00:00* Test Item Value Reference Range Interpretation Comme nts HEMOGLOBIN A1c (test code = 47069) 6.4 % HEMOGLOBIN [id number] 00:00:00* Test Item Value Reference Range Interpretation Comme nts HEMOGLOBIN A1c (test code = 04116) 6.4 % HEMOGLOBIN [id number] 00:00:00* Test Item Value Reference Range Interpretation Comme nts HEMOGLOBIN A1c (test code = 79757) 6.4 % CBC W/AUTO [id number] 00:00:00* Test Item Value Reference Range Interpretation [...] code = 1015) 217 K/UL CBC W/AUTO [id number] 00:00:00* Test Item Value Reference Range Interpretation [...] code = 1015) 217 K/UL CBC W/AUTO [id number] 00:00:00* Test Item Value Reference Range Interpretation [...] code = 1015) 217 K/UL COMPREHENSIVE METABOLIC [id number] 00:00:00* Test Item Value Reference Range Interpretation Comme nts GLUCOSE (test code = 2217) 142 MG/DL BUN (test code = 2208) 15 MG/DL CREATININE (test code = 2214) 0.83 MG/DL eGFR AMER. (test cod e = 92292) 113 ML/MIN/1.73 eGFR NON- AMER. (test code = 47154) 98 ML/MIN/1.73 CALC BUN/CREAT (test code = [...] code = 2219) 45 U/L COMPREHENSIVE METABOLIC [id number] 00:00:00* Test Item Value Reference Range Interpretation Comme nts GLUCOSE (test code = 2217) 142 MG/DL BUN (test code = 2208) 15 MG/DL CREATININE (test code = 2214) 0.83 MG/DL eGFR AMER. (test cod e = 52855) 113 ML/MIN/1.73 eGFR NON- AMER. (test code = 85366) 98 ML/MIN/1.73 CALC BUN/CREAT (test code = [...] (test code = 2219) 45 U/L LIPID [id number] 00:00:00* Test Item Value Reference Range Interpretation Comme nts CHOLESTEROL (test code = 2210) 224 MG/DL TRIGLYCERIDES (test code = 2232) 104 MG/DL HDL CHOLESTEROL (test code = 2220) 40 MG/DL CALC LDL CHOL (test code = 2237) 163 MG/DL RISK RATIO LDL/HDL (test cod e = 2238) 4.08 RATIO LIPID [id number] 00:00:00* Test Item Value Reference Range Interpretation Comme nts CHOLESTEROL (test code = 2210) 224 MG/DL TRIGLYCERIDES (test code = 2232) 104 MG/DL HDL CHOLESTEROL (test code = 2220) 40 MG/DL CALC LDL CHOL (test code = 2237) 163 MG/DL RISK RATIO LDL/HDL (test cod e = 2238) 4.08 RATIO PSA, [id number] 00:00:00* Test Item Value Reference Range Interpretation Comme nts PSA, TOTAL (test code = 2606) 0.51 NG/ML PSA, [id number] 00:00:00* Test Item Value Reference Range Interpretation Comme nts PSA, TOTAL (test code = 2606) 0.51 NG/ML PSA, [id number] 00:00:00* Test Item Value Reference Range Interpretation Comme nts PSA, TOTAL (test code = 2606) 0.51 NG/ML [id number] 00:00:00* Test Item Value Reference Range Interpretation Comme nts TSH, THIRD GENERATION (test code = 2821) 1.250 UIU/ML [id number] 00:00:00* Test Item Value Reference Range Interpretation Comme nts TSH, THIRD GENERATION (test code = 2821) 1.250 UIU/ML [id number] 00:00:00* Test Item Value Reference Range Interpretation [...] (test code = 2821) 1.1 UIU/ML LIPID [id number] 00:00:00* Test Item Value Reference Range Interpretation Comme nts CHOLESTEROL (test code = 2210) 234 MG/DL TRIGLYCERIDES (test code = 2232) 92 MG/DL HDL CHOLESTEROL (test code = 2220) 42 MG/DL CALCULATED LDL CHOL (test co de = 2237) 174 MG/DL RISK RATIO LDL/HDL (test cod e = 2238) 4.13 RATIO CBC W/AUTO [id number] 00:00:00* Test Item Value Reference Range Interpretation [...] code = 1015) 206 K/UL CBC W/AUTO [id number] 00:00:00* Test Item Value Reference Range Interpretation [...] code = 1015) 206 K/UL COMPREHENSIVE METABOLIC [id number] 00:00:00* Test Item Value Reference Range Interpretation Comme nts GLUCOSE (test code = 2217) 100 MG/DL BUN (test code = 2208) 12 MG/DL CREATININE (test code = 2214) 0.8 MG/DL eGFR AMER. (test cod e = 30591) 122 ML/MIN/1.73 eGFR NON- AMER. (test code = 66787) 101 ML/MIN/1.73 CALCULATED BUN/CREAT (test code = [...] (test code = 2219) 23 U/L HEMOGLOBIN [id number] 00:00:00* Test Item Value Reference Range Interpretation Comme nts HEMOGLOBIN A1c (test code = 12426) 5.9 % HEMOGLOBIN [id number] 00:00:00* Test Item Value Reference Range Interpretation Comme nts HEMOGLOBIN A1c (test code = 14304) 5.9 % THYROID II PROFILE (T3U, T4, [...] (test code = 2821) 1.1 UIU/ML LIPID [id number] 00:00:00* Test Item Value Reference Range Interpretation Comme nts CHOLESTEROL (test code = 2210) 234 MG/DL TRIGLYCERIDES (test code = 2232) 92 MG/DL HDL CHOLESTEROL (test code = 2220) 42 MG/DL CALCULATED LDL CHOL (test co de = 2237) 174 MG/DL RISK RATIO LDL/HDL (test cod e = 2238) 4.13 RATIO LIPID [id number] 00:00:00* Test Item Value Reference Range Interpretation Comme nts CHOLESTEROL (test code = 2210) 234 MG/DL TRIGLYCERIDES (test code = 2232) 92 MG/DL HDL CHOLESTEROL (test code = 2220) 42 MG/DL CALCULATED LDL CHOL (test co de = 2237) 174 MG/DL RISK RATIO LDL/HDL (test cod e = 2238) 4.13 RATIO CBC W/AUTO [id number] 00:00:00* Test Item Value Reference Range Interpretation [...] code = 1015) 206 K/UL CBC W/AUTO [id number] 00:00:00* Test Item Value Reference Range Interpretation [...] code = 1015) 206 K/UL CBC W/AUTO [id number] 00:00:00* Test Item Value Reference Range Interpretation [...] code = 1015) 206 K/UL COMPREHENSIVE METABOLIC [id number] 00:00:00* Test Item Value Reference Range Interpretation Comme nts GLUCOSE (test code = 2217) 100 MG/DL BUN (test code = 2208) 12 MG/DL CREATININE (test code = 2214) 0.8 MG/DL eGFR AMER. (test cod e = 98757) 122 ML/MIN/1.73 eGFR NON- AMER. (test code = 71332) 101 ML/MIN/1.73 CALCULATED BUN/CREAT (test code = [...] code = 2219) 23 U/L COMPREHENSIVE METABOLIC [id number] 00:00:00* Test Item Value Reference Range Interpretation Comme nts GLUCOSE (test code = 2217) 100 MG/DL BUN (test code = 2208) 12 MG/DL CREATININE (test code = 2214) 0.8 MG/DL eGFR AMER. (test cod e = 65715) 122 ML/MIN/1.73 eGFR NON- AMER. (test code = 92135) 101 ML/MIN/1.73 CALCULATED BUN/CREAT (test code = [...] 0.4 MG/DL ALKALINE PHOSPHATASE (test code = 220) 57 U/L SGOT (AST) (test code = 2218) 18 U/L SGPT (ALT) (test code = 2219) 23 U/L HEMOGLOBIN [id number] 00:00:00* Test Item Value Reference Range Interpretation Comme nts HEMOGLOBIN A1c (test code = 10749) 5.9 % HEMOGLOBIN [id number] 00:00:00* Test Item Value Reference Range Interpretation Comme nts HEMOGLOBIN A1c (test code = 90318) 5.9 % HEMOGLOBIN [id number] 00:00:00* Test Item Value Reference Range Interpretation Comme nts HEMOGLOBIN A1c (test code = 29038) 5.9 % THYROID II PROFILE (T3U, T4, [...] (test code = 2821) 1.1 UIU/ML LIPID [id number] 00:00:00* Test Item Value Reference Range Interpretation Comme nts CHOLESTEROL (test code = 2210) 234 MG/DL TRIGLYCERIDES (test code = 2232) 92 MG/DL HDL CHOLESTEROL (test code = 2220) 42 MG/DL CALCULATED LDL CHOL (test co de = 2237) 174 MG/DL RISK RATIO LDL/HDL (test cod e = 2238) 4.13 RATIO LIPID [id number] 00:00:00* Test Item Value Reference Range Interpretation Comme nts CHOLESTEROL (test code = 2210) 234 MG/DL TRIGLYCERIDES (test code = 2232) 92 MG/DL HDL CHOLESTEROL (test code = 2220) 42 MG/DL CALCULATED LDL CHOL (test co de = 2237) 174 MG/DL RISK RATIO LDL/HDL (test cod e = 2238) 4.13 RATIO CBC W/AUTO [id number] 00:00:00* Test Item Value Reference Range Interpretation [...] code = 1015) 206 K/UL CBC W/AUTO [id number] 00:00:00* Test Item Value Reference Range Interpretation [...] code = 1015) 206 K/UL CBC W/AUTO [id number] 00:00:00* Test Item Value Reference Range Interpretation [...] code = 1015) 206 K/UL COMPREHENSIVE METABOLIC [id number] 00:00:00* Test Item Value Reference Range Interpretation Comme nts GLUCOSE (test code = 2217) 100 MG/DL BUN (test code = 2208) 12 MG/DL CREATININE (test code = 2214) 0.8 MG/DL eGFR AMER. (test cod e = 62382) 122 ML/MIN/1.73 eGFR NON- AMER. (test code = 99373) 101 ML/MIN/1.73 CALCULATED BUN/CREAT (test code = [...] code = 2219) 23 U/L COMPREHENSIVE METABOLIC [id number] 00:00:00* Test Item Value Reference Range Interpretation Comme nts GLUCOSE (test code = 2217) 100 MG/DL BUN (test code = 2208) 12 MG/DL CREATININE (test code = 2214) 0.8 MG/DL eGFR AMER. (test cod e = 30368) 122 ML/MIN/1.73 eGFR NON- AMER. (test code = 31638) 101 ML/MIN/1.73 CALCULATED BUN/CREAT (test code = [...] (test code = 2219) 23 U/L HEMOGLOBIN [id number] 00:00:00* Test Item Value Reference Range Interpretation Comme [facility] HEMOGLOBIN A1c (test code = 05487) 5.9 % HEMOGLOBIN [id number] 00:00:00* Test Item Value Reference Range Interpretation Comme [facility] HEMOGLOBIN A1c (test code = 76743) 5.9 % HEMOGLOBIN [id number] 00:00:00* Test Item Value Reference Range Interpretation Comme nts HEMOGLOBIN A1c (test code = 99251) 5.9 % Notes Date/Time Note Provider Source 2023-08-08 13:02:10 [id number]:02:10F ormatting of this note is different from the original.Chief ComplaintPatient presents withDiabetesHospital F/UHospital follow up from [facility] for chest pains. Was admitted and [place] [address]-5Urtwk [id number]:02:25Nurse NoteTXT1.2.840.904756.1.13.131.2.7. 2.230340|[id number] for patient rpio83916-9Qlefp NoteLNNARRATIVEFormatted C-CDA narrative [id number]:02:251.2.840.002888 .1.72.3.15|1.2.840.047331.1.13.131. [id number] [facility] 2022-11-13 11:01:48 [id number]:01:48F ormatting of this note might be different from the original.Patient is here for 3 month f/u for diabetes and requesting medication refills, BP 140/80, Hr 57, medications reconciled. 54620-0Bgyvn [id number]:02:31Nurse NoteTXT1.2.840.369563.1.13.131.2.7. 2.446894|[id number] for patient vwve69341-8Uewzu [id number] [address][id number] [id number]:02:311.2.840.705966 .1.72.3.15|1.2.840.778860.1.13.131. [id number] [facility]"
[2023-08-26] MEDS ORDERED: NA CHLORIDE 0.9% 1,000 ML ONE (04:01)
[2023-08-26] MEDS ORDERED: ONDANSETRON 4 MG/2 ML VIAL ONE (04:01)
[2023-08-26] MEDS ORDERED: METOCLOPRAMIDE 10 MG/2mL INJ ONE (04:01)
[2023-08-26] MEDS ORDERED: MORPHINE 4 MG/ML SYR ONE ×2 (04:02→07:43)
[2023-08-26 04:11] LABS: Absolute Basophils 0.1 K/uL (0-0.5); Absolute Eosinophils 0.3 K/uL (0-0.5); Absolute Lymphocytes (CBC) 1.8 K/uL (0.7-4.9); Absolute Monocytes 0.9 K/uL (0.1-1.3); Absolute Neutrophil 7.1 K/uL (1.8-8.0); Basophils % 0.8 % (0-1.3); Eosinophils % 3.4 % (0-4.4); Hematocrit 47.5 % (39.6-49.0); Hemoglobin 16.4 g/dL (13.6-17.9); Lymphocytes % 17.4 % (15.3-44.8); MCH 33.3 pg (27.0-35.0); MCHC 34.5 g/dL (32.0-36.0); MCV 96.6 fL (80-100); MPV 7.6 fL (7.6-11.3); Monocytes % 8.6 % (3.3-12.3); Neutrophils % 69.8 % (41.7-73.7); Platelets 224 thou/uL (152-406); RBC Red Blood Cell Count 4.92 M/uL (4.33-5.43); Red Cell Distribution Width 13.1 % (12.1-15.2)
[2023-08-26 04:29] LABS: Albumin 3.8 g/dL (3.4-5.0); Albumin/Globulin Ratio 0.9 (1.1-1.8); Anion Gap 7.4 mEq/L (5.0-15.0); Bilirubin Direct 0.3 mg/dL (0-0.2); Bilirubin Indirect, Calculated 0.9 mg/dL (0.2-0.8); Bilirubin Total 1.2 mg/dL (0.2-1.0); Globulin 4.1 g/dL (2.3-3.5); Magnesium 1.7 mg/dL (1.6-2.4); Potassium 3.4 mEq/L (3.5-5.1); Protein, Total 7.9 g/dL (6.4-8.2)
[2023-08-26 05:41] LABS: Specific Gravity 1.022 (1.005-1.030); Sqamous Epithelial None Seen /HPF (None Seen); Urine Bacteria None Seen /HPF (<20); Urine Bilirubin NEGATIVE (Negative); Urine Blood Negative (Negative); Urine Clarity Turbid (Clear); Urine Color Yellow (Yellow); Urine Culture Reflex Order NOT NEEDED; Urine Glucose NEGATIVE (Negative); Urine Ketones NEGATIVE (Negative); Urine Micro Reflex YN NO BILL MICROSCOPIC; Urine Mucus Slight /HPF (None Seen); Urine Nitrite NEGATIVE (Negative); Urine Protein 1+ (Negative); Urine RBC <5 /HPF (None Seen); Urine Urobilinogen 1+ (Normal); Urine WBC <5 /HPF (<5)
--- NOTE | 2023-08-26 08:00 | RAD REPORT ---
EXAM DESCRIPTION: CT - Abdomen Pelvis W Contrast - 08/26/2023 4:55 am CLINICAL HISTORY: Abdominal pain COMPARISON: June 2023 TECHNIQUE: Computed axial tomography of the abdomen pelvis was obtained. 100 cc Isovue-300 was admin istered intravenously. Oral contrast was not requested which limits evaluation of bowel and appendix All CT scans are performed using dose optimization technique as appropriate and may include automated exposure control or mA/KV adjustment according to patient size. FINDINGS: The liver, spleen, pancreas, adrenal and kidneys appear unremarkable. There is no evidence of diverticulitis. Moderate dilatation of multiple loops of small bowel within the right abdomen. The ileum is decompres sed. No free air Borderline enlargement the appendix. No stranding adjacent. Small inguinal hernias IMPRESSION: Moderate dilatation of small bowel probably an obstruction Borderline enlargement of the appendix. This probably is insignificant given lack of adjacent strandi ng but should correlated clinically for signs of appendicitis
--- NOTE | 2023-08-26 08:35 | EDPHYS ---
Physician Documentation [facility] Name: Ander Jean Age: 62 yrs Sex: Male : 1960 Arrival Date: 08/26/2023 Time: 03:26 Bed 3 Private MD: ED Physician Jarrett Wasserman HPI: 08/25 03:30 This 62 yrs old Male presents to ER via Unassigned with complaints of sp4 Abdominal Pain. 06:33 62 -year-old male started Trulicity shots with last injection on Sunday for weight sp4 loss. Patient states after his Trulicity injection he developed mid abdominal pain associated with vomiting. Pain has intensified this morning patient arrived to the ER for evaluation of abdominal pain.. Historical: - Allergies: 03:35 Codeine; lg3 03:35 PENICILLINS; lg3 - Home Meds: 07:47 carvedilol Oral 2 times per day [Active]; lisinopril-hydrochlorothiazide 20-25 mg Oral hb tab 2 tabs once daily [Active]; - PMHx: 03:35 Aneurysm; diabetes mellitus; Hypertension; COPD; lg3 - PSHx: 07:47 None; hb - Immunization history:: Adult Immunizations up to date. - Infectious Disease History:: Denies. - Social history:: Smoking status: Patient denies any tobacco usage or history of. Patient/guardian denies using alcohol, street drugs. - Family history:: not pertinent. ROS: 06:33 Constitutional: Negative for fever, chills, and weight loss, positive for mid sp4 abdominal pain and positive for nausea with vomiting. 06:33 All other systems are negative, Exam: 06:33 Constitutional: This is a well developed, well nourished patient who is awake, alert, sp4 and in no acute distress. Head/Face: Normocephalic, atraumatic. Eyes: Pupils equal round and reactive to light, extra-ocular motions intact. Lids and lashes normal. Conjunctiva and sclera are not injected. Cornea within normal limits. Periorbital areas with no swelling, redness, or edema. ENT: Nares patent. No nasal discharge, no septal abnormalities noted. Tympanic membranes are normal and external auditory canals are clear. Oropharynx with no redness, swelling, or masses, exudates, or evidence of obstruction, uvula midline. Mucous membranes moist. Neck: Trachea midline, no thyromegaly or masses palpated, and no cervical lymphadenopathy. Supple, full range of motion without nuchal rigidity, or vertebral point tenderness. Chest/axilla: Normal chest wall appearance and motion. Nontender with no deformity. No lesions are appreciated. Cardiovascular: Regular rate and rhythm with a normal S1 and S2. No gallops, murmurs, or rubs. Normal PMI, no JVD. No pulse deficits. Respiratory: Lungs have equal breath sounds bilaterally, clear to auscultation and percussion. No rales, rhonchi or wheezes noted. No increased work of breathing, no retractions or nasal flaring. Abdomen/GI: Soft, with normal bowel sounds. No distension or tympany. No guarding or rebound. No evidence of tenderness throughout. Back: No spinal tenderness. No costovertebral tenderness. Skin: Warm, dry with normal turgor. Normal color with no rashes, no lesions, and no evidence of cellulitis. MS/ Extremity: Pulses equal, no cyanosis. Neurovascular intact. Full, normal range of motion. Neuro: Awake and alert, GCS 15, oriented to person, place, time, and situation. Cranial nerves II-XII grossly intact. Motor strength 5/5 in all extremities. Sensory grossly intact. Psych: Awake, alert, with orientation to person, place and time. Behavior, mood, and affect are within normal limits Vital Signs: 03:32 BP 163 / 89; Pulse 77; Resp 17 S; Temp 97.4(O); Pulse Ox 98% on R/A; Weight 110.22 kg lg3 (R); Height 6 ft. 3 in. (R); 04:00 BP 137 / 82; Pulse 79; Resp 20; Pulse Ox 97% on R/A; km8 04:30 BP 149 / 81; Pulse 74; Resp 16; Pulse Ox 95% on R/A; km8 05:00 BP 154 / 86; Pulse 72; Resp 16; Pulse Ox 93% on R/A; km8 06:00 BP 154 / 86; Pulse 72; Resp 15; Pulse Ox 97% ; vc1 07:47 BP 151 / 90; Pulse 71; Resp 16; Pulse Ox 97% on R/A; Pain 9/10; hb 09:08 BP 160 / 88; Pulse 77; Resp 18; Pulse Ox 95% on R/A; Pain 0/10; rs5 03:32 Body Mass Index 30.37 (110.22 kg, 190.5 cm) lg3 07:47 Pain Scale: Adult hb 09:08 Pain Scale: Adult rs5 Barbra Coma Score: 04:00 Eye Response: spontaneous(4). Motor Response: obeys commands(6). Verbal Response: km8 oriented(5). Total: 15. 06:33 Eye Response: spontaneous(4). Motor Response: obeys commands(6). Verbal Response: sp4 oriented(5). Total: 15. MDM: 03:46 Patient medically screened. sp4 07:34 Differential Diagnosis altered mental status, sepsis, flu. Data reviewed: vital signs, sp4 nurses notes, old medical records, lab test result(s), radiologic studies, CT scan. 07:38 Transition of care: After a detail discussion of the patient's case, care is sp4 transferred to Rain Tompkins MD. 08:31 Management of patient was discussed with the following: Hospitalist: . Transition of sd2 care: Care assumed from Jarrett Wasserman MD. ED course: CT report reviewed with probable obstruction and enlarged appendix. Will plan for admit at this time. Hospitalist aware.. 06 03:41 Order name: Basic Metabolic Panel; Complete Time: 06:36 sp4 08/25 03:41 Order name: CBC with Diff; Complete Time: 06:36 sp4 08/25 03:41 Order name: LFT's; Complete Time: 06:36 sp4 08/25 03:41 Order name: Magnesium; Complete Time: 06:36 sp4 08/25 03:42 Order name: Urinalysis W/Microscopic; Complete Time: 06:36 sp4 08/25 04:07 Order name: CT Abd/Pelvis - IV Contrast Only; Complete Time: 08:31 sp4 08/25 03:41 Order name: IV Saline Lock; Complete Time: 03:58 sp4 08/25 03:41 Order name: Labs collected and sent; Complete Time: 03:58 sp4 08/25 03:41 Order name: O2 Per Protocol; Complete Time: 03:42 sp4 08/25 03:41 Order name: O2 Sat Monitoring; Complete Time: 03:42 sp4 Administered Medications: 04:08 Drug: morphine IVP or IV 8 mg IVP once over 4 mins Route: IVP; Infused Over: 4 mins; km8 Site: right antecubital; 04:35 Follow up: Response: No adverse reaction; Pain is decreased km8 04:09 Drug: Ondansetron IVP 4 mg IVP once; over 2 minutes Route: IVP; Site: right antecubital;km8 04:35 Follow up: Response: No adverse reaction; Nausea is decreased km8 04:09 Drug: metoCLOPramide IVP 10 mg IVP once; over 1 to 2 minutes Route: IVP; Site: right km8 antecubital; 04:38 Follow up: Response: No adverse reaction; Nausea is decreased 8 04:09 Drug: NS 0.9% IV 1000 ml IV at 1 bolus Per protocol; 1000 mL bolus Route: IV; Rate: 1 km8 bolus; Site: right antecubital; 07:00 Follow up: Response: No adverse reaction rs5 07:45 Drug: morphine IVP or IV 6 mg IVP once over 4 mins Route: IVP; Infused Over: 4 mins; rs5 Site: right antecubital; 08:10 Follow up: Response: No adverse reaction; Pain is decreased rs5 10:04 Drug: Albuterol Inhalation 2.5 mg Inhalation once Route: Inhalation; ll1 10:06 Drug: Ipratropium Inhalation Aerosol 0.5 mg Inhalation once Route: Inhalation; hb Disposition Summary: 08/26/23 08:34 Hospitalization Ordered Notes: Hospitalization Status: Inpatient Admission sd2 Provider: Ebenezer Dai Location: Telemetry/MedSurg (Inpatient) sd2 Condition: Stable sd2 Problem: new sd2 Symptoms: have improved sd2 Bed/Room Type: [facility] Room Assignment: 404(08/26/23 09:31) eb Diagnosis - Small bowel obstruction sd2 - Enlarged appendix sd2 - Abdominal pain sd2 - Nausea and vomiting sd2 Forms: - Medication Reconciliation Form sd2 - SBAR form sd2 - Leadership Thank You Letter sd2 Signatures: Dispatcher [employer] EDKY Kashmir Casey FNP-C FNP-[facility] Elena Cano RN RN Martha Eldridge Lacie, RN RN lg3 Valeria Morales, ZAKIYA RN ll1 Rain Tompkins MD MD sd2 Anel Alejandro PA-Perry PA-C sb4 Placido Martínez, ZAKIYA RN rs5 Jarrett Wasserman MD MD sp4 Rose Mary Rodriguez, RN RN km8 Corrections: (The following items were deleted from the chart) 03:42 03:42 BASIC METABOLIC PANEL+C.LAB.BRZ ordered. EDMS EDMS 03:42 03:42 CBC+H.LAB.BRZ ordered. EDMS EDMS 03:42 03:42 HEPATIC FUNCTION+C.LAB.BRZ ordered. EDMS EDMS 03:42 03:42 MAGNESIUM+C.LAB.BRZ ordered. EDMS EDMS 09:31 08:34 sd2 eb 10:20 09:48 NG Tube ordered. sb4 sb4
--- NOTE | 2023-08-26 08:35 | ER ---
Nurse's Notes [facility] Name: Ander Jean Age: 62 yrs Sex: Male : 1960 Arrival Date: 08/26/2023 Time: 03:26 Bed 3 Private MD: Diagnosis: Small bowel obstruction;Enlarged appendix;Abdominal pain;Nausea and vomiting Presentation: 08/25 03:32 Chief complaint: Patient states: ABD pain X3 days after starting trulicity. Coronavirus lg3 screen: Client denies travel out of the [place] in the last 14 days. At this time, the client does not indicate any symptoms associated with coronavirus-19. Ebola Screen: No symptoms or risks identified at this time. Initial Sepsis Screen: Does the patient meet any 2 criteria? No. Patient's initial sepsis screen is negative. Does the patient have a suspected source of infection? No. Patient's initial sepsis screen is negative. Risk Assessment: Do you want to hurt yourself or someone else? Patient reports no desire to harm self or others. Onset of symptoms was August 23, 2023. 03:32 Method Of Arrival: Ambulatory lg3 03:32 Acuity: THANG 3 lg3 Triage Assessment: 03:35 General: Appears in no apparent distress. uncomfortable, Behavior is calm, cooperative. lg3 Pain: Complains of pain in abdomen. EENT: No deficits noted. No signs and/or symptoms were reported regarding the EENT system. Neuro: No deficits noted. Robbins Agitation-Sedation Scale (RASS): 0 - Alert and Calm Level of Consciousness is awake, alert, obeys commands, Oriented to person, place, time, situation. Cardiovascular: No deficits noted. Denies chest pain, shortness of breath, Capillary refill < 3 seconds Clubbing of nail beds is absent JVD is absent Patient's skin is warm and dry. Respiratory: No deficits noted. Airway is patent Respiratory effort is even, unlabored, Respiratory pattern is regular, symmetrical. GI: Abdomen is round non-distended, obese, Reports lower abdominal pain, upper abdominal pain, constipation, diarrhea, nausea, vomiting. : No deficits noted. No signs and/or symptoms were reported regarding the genitourinary system. Derm: No deficits noted. No signs and/or symptoms reported regarding the dermatologic system. Skin is intact, is healthy with good turgor, Skin is dry, Skin is normal, Skin temperature is warm. Musculoskeletal: No deficits noted. No signs and/or symptoms reported regarding the musculoskeletal system. Circulation, motion, and sensation intact. Range of motion: intact in all extremities. Historical: - Allergies: 03:35 Codeine; lg3 03:35 PENICILLINS; lg3 - Home Meds: 07:47 carvedilol Oral 2 times per day [Active]; lisinopril-hydrochlorothiazide 20-25 mg Oral hb tab 2 tabs once daily [Active]; - PMHx: 03:35 Aneurysm; diabetes mellitus; Hypertension; COPD; lg3 - PSHx: 07:47 None; hb - Immunization history:: Adult Immunizations up to date. - Infectious Disease History:: Denies. - Social history:: Smoking status: Patient denies any tobacco usage or history of. Patient/guardian denies using alcohol, street drugs. - Family history:: not pertinent. Screenin:00 [facility] ED Fall Risk Assessment (Adult) History of falling in the last 3 months, km8 including since admission No falls in past 3 months (0 pts) Confusion or Disorientation No (0 pts) Intoxicated or Sedated No (0 pts) Impaired Gait No (0 pts) Mobility Assist Device Used No (0 pt) Altered Elimination No (0 pt) Score/Fall Risk Level 0 - 2 = Low Risk Oriented to surroundings, Maintained a safe environment, Educated pt \T\ family on fall prevention, incl call for assistance when getting out of bed, Assessed \T\ reinforced patient's understanding of fall precautions. Abuse screen: Denies threats or abuse. Denies injuries from another. Nutritional screening: No deficits noted. Tuberculosis screening: No symptoms or risk factors identified. Assessment: 04:00 General: Appears uncomfortable, Behavior is cooperative, appropriate for age. Pain: km8 Complains of pain in abdomen Pain currently is 8 out of 10 on a pain scale. Neuro: Level of Consciousness is awake, alert, obeys commands, Oriented to person, place, time, situation. Cardiovascular: Denies chest pain, Patient's skin is warm and dry. Respiratory: Airway is patent Respiratory effort is even, unlabored, Respiratory pattern is regular, symmetrical. GI: Abdomen is obese, Bowel sounds present X 4 quads. Abdomen is tender to palpation in abdomen diffusely Reports lower abdominal pain, upper abdominal pain, nausea. : No signs and/or symptoms were reported regarding the genitourinary system. EENT: No signs and/or symptoms were reported regarding the EENT system. Derm: Skin is intact, is healthy with good turgor, Skin is dry, Skin is pink, warm \T\ dry. normal, Skin temperature is warm. Musculoskeletal: Range of motion: intact in all extremities. 05:00 Reassessment: Patient appears in no apparent distress at this time. Patient and/or km8 family updated on plan of care and expected duration. Pain level reassessed. Patient is alert, oriented x 3, equal unlabored respirations, skin warm/dry/pink. Patient states feeling better. Patient states symptoms have improved. 06:00 Reassessment: Patient appears in no apparent distress at this time. No changes from vc1 previously documented assessment. Patient and/or family updated on plan of care and expected duration. Pain level reassessed. Patient is alert, oriented x 3, equal unlabored respirations, skin warm/dry/pink. 07:46 Reassessment: Patient appears in no apparent distress at this time. Patient and/or hb family updated on plan of care and expected duration. Pain level reassessed. Patient is alert, oriented x 3, equal unlabored respirations, skin warm/dry/pink. 08:55 Reassessment: Patient and/or family updated on plan of care and expected duration. Pain rs5 level reassessed. Patient is alert, oriented x 3, equal unlabored respirations, skin warm/dry/pink. 09:32 Reassessment: Patient appears in no apparent distress at this time. Patient and/or hb family updated on plan of care and expected duration. Pain level reassessed. Patient is alert, oriented x 3, equal unlabored respirations, skin warm/dry/pink. 09:43 Reassessment: Dr. Dai at bedside. 10:06 Reassessment: Report faxed and pt ready to be transported to room upstairs, need neb ll1 before transport per Dr. Dai and ALLYSSA Marlow. Neb started, Charge Nurse Valeria notified. Vital Signs: 03:32 BP 163 / 89; Pulse 77; Resp 17 S; Temp 97.4(O); Pulse Ox 98% on R/A; Weight 110.22 kg lg3 (R); Height 6 ft. 3 in. (R); 04:00 BP 137 / 82; Pulse 79; Resp 20; Pulse Ox 97% on R/A; km8 04:30 BP 149 / 81; Pulse 74; Resp 16; Pulse Ox 95% on R/A; km8 05:00 BP 154 / 86; Pulse 72; Resp 16; Pulse Ox 93% on R/A; km8 06:00 BP 154 / 86; Pulse 72; Resp 15; Pulse Ox 97% ; vc1 07:47 BP 151 / 90; Pulse 71; Resp 16; Pulse Ox 97% on R/A; Pain 9/10; hb 09:08 BP 160 / 88; Pulse 77; Resp 18; Pulse Ox 95% on R/A; Pain 0/10; rs5 03:32 Body Mass Index 30.37 (110.22 kg, 190.5 cm) lg3 07:47 Pain Scale: Adult hb 09:08 Pain Scale: Adult rs5 Steinauer Coma Score: 04:00 Eye Response: spontaneous(4). Motor Response: obeys commands(6). Verbal Response: km8 oriented(5). Total: 15. 06:33 Eye Response: spontaneous(4). Motor Response: obeys commands(6). Verbal Response: sp4 oriented(5). Total: 15. ED Course: 03:27 Patient arrived in ED. jj6 03:30 Jarrett Wasserman MD is Attending Physician. sp4 03:33 Becka Koenig is Primary Nurse. cp4 03:35 Triage completed. lg3 03:35 Arm band placed on right wrist. lg3 03:58 Basic Metabolic Panel Sent. km8 03:58 CBC with Diff Sent. km8 03:59 LFT's Sent. km8 03:59 Magnesium Sent. km8 04:00 Patient has correct armband on for positive identification. Call light in reach. Side km8 rails up X2. Provided Education on: call light use. Pulse ox on. NIBP on. 04:00 Initial lab(s) drawn, by ED staff, sent to lab. Inserted saline lock: 20 gauge in right km8 antecubital area, using aseptic technique. Blood collected. 04:56 CT Abd/Pelvis - IV Contrast Only In Process Unspecified. EDMS 05:00 Primary Nurse role handed off by Becka Koenig km8 05:00 Rose Mary Rodriguez, ZAKIYA is Primary Nurse. km8 05:00 Patient moved back from CT. km8 08:03 Door closed. Lights dimmed. Warm blanket given. Cup of ice given. hb 08:33 Ebenezer Dai MD is Hospitalizing Provider. sd2 09:09 No provider procedures requiring assistance completed. Patient admitted, IV remains in rs5 place. Administered Medications: 04:08 Drug: morphine IVP or IV 8 mg IVP once over 4 mins Route: IVP; Infused Over: 4 mins; km8 Site: right antecubital; 04:35 Follow up: Response: No adverse reaction; Pain is decreased km8 04:09 Drug: Ondansetron IVP 4 mg IVP once; over 2 minutes Route: IVP; Site: right antecubital;km8 04:35 Follow up: Response: No adverse reaction; Nausea is decreased km8 04:09 Drug: metoCLOPramide IVP 10 mg IVP once; over 1 to 2 minutes Route: IVP; Site: right km8 antecubital; 04:38 Follow up: Response: No adverse reaction; Nausea is decreased km8 04:09 Drug: NS 0.9% IV 1000 ml IV at 1 bolus Per protocol; 1000 mL bolus Route: IV; Rate: 1 km8 bolus; Site: right antecubital; 07:00 Follow up: Response: No adverse reaction rs5 07:45 Drug: morphine IVP or IV 6 mg IVP once over 4 mins Route: IVP; Infused Over: 4 mins; rs5 Site: right antecubital; 08:10 Follow up: Response: No adverse reaction; Pain is decreased rs5 10:04 Drug: Albuterol Inhalation 2.5 mg Inhalation once Route: Inhalation; ll1 10:06 Drug: Ipratropium Inhalation Aerosol 0.5 mg Inhalation once Route: Inhalation; hb Medication: 04:00 VIS not applicable for this client. km8 Outcome: 08:34 Decision to Hospitalize by Provider. sd2 09:09 Admitted to ER Hold. [facility]. rs5 09:09 Condition: stable 09:09 Instructed on the need for admit, Demonstrated understanding of instructions, 10:28 Patient left the ED. ll1 Signatures: Dispatcher [employer] EDMS Elena Cano, RN RN hb Able, Karen, RN RN lg3 Valeria Morales RN RN ll1 Marce Mendoza jj6 Aster Mccracken RN RN 1 Rain Tompkins MD MD sd2 Placido Martínez RN RN rs5 Jarrett Wasserman MD MD sp4 Becka Koenig 4 Rose Mary Rodriguez RN RN km8 Corrections: (The following items were deleted from the chart) 07:48 07:47 BP 151 / 90; Pulse 59bpm; Resp 16bpm; Pulse Ox 97% RA; hb hb 10:28 10:06 Reassessment: Report faxed and pt ready to be transported to room upstairs, need ll1 neb and NGT before transport per Dr. Dai and ALLYSSA Marlow. Neb started, NGT pending completion of neb. Charge Nurse Valeria notified. hb
[2023-08-26] MEDS ORDERED: MORPHINE 2 MG/ML SYR IV PRN (09:17)
[2023-08-26 09:18] VITALS: BMI 30.2
[2023-08-26] MEDS ORDERED: IPRATROPIUM BROM 0.5MG/2.5ML ONE (09:57)
[2023-08-26] MEDS ORDERED: ALBUTEROL 2.5 MG/3 ML NEB SOL ONE (09:57)
[2023-08-26] MEDS: Enoxaparin 120 MG/0.8 ML SYR SQ SCH (10:00)
--- NOTE | 2023-08-26 10:30 | P.HP ---
Certification for Inpatient Patient admitted to: Inpatient With expected LOS: >2 Midnights Patient will require the following post-hospital care: None Practitioner: I am a practitioner with admitting privileges, knowledge of patient current condition, hospital course, and medical plan of care. Services: Services provided to patient in accordance with Admission requirements found in Title 42 Section 412.3 of the Code of Federal Regulations Patient History Date of Service: 08/26/23 History of Present Illness: 62-year-old male with history of diabetes mellitus type [id number], hypertension, COPD, atrial fibrillation on chronic anticoagulation with known thoracic aortic aneurysm presents to the emergency department chief complaint of abdominal pain, vomiting. He reports that he started Trulicity about a week and a half ago and since then has been having some GI symptoms, after his last injection on Sunday the he began to have nausea, on Sunday he developed significant abdominal pain and vomiting has been feeling unwell since then. His last normal bowel movement was Sunday the , he did have small amount of diarrhea on Sunday the . He was evaluated in the emergency department today his labs are significant for sodium 134 potassium 3.4 white blood cell 10.2 CT of the abdomen pelvis was performed IV contrast which revealed suspected small bowel obstruction and borderline enlargement of the appendix. ED wishes to admit patient for small bowel obstruction. Allergies codeine Allergy (Verified 03/16/17 15:37) vomiting Penicillins Allergy (Verified 11/29/13 02:02) unknown sour cream Allergy (Uncoded 11/29/13 02:02) unknown Home Medications: Albuterol Sulfate [Albuterol Sulfate Hfa] 2 puff IH Q6HP PRN 07/21/23 Glimepiride 2 mg PO ACB 07/21/23 Ipratropium Dumont 2.5 ml NEB TID 07/21/23 Ipratropium/Albuterol Sulfate [Iprat-Albut 0.5-3(2.5) mg/3 ml] 3 ml IH Q6HR 07/21/23 Metformin HCl 1,000 mg PO BREAKFAST 07/21/23 Montelukast [Singulair*] 10 mg PO BEDTIME 07/21/23 Aspirin [Aspirin EC 81 MG] 81 mg PO DAILY #30 tab 07/24/23 Atorvastatin Calcium [Lipitor*] 10 mg PO BEDTIME 30 Days #30 tab 07/24/23 Colchicine [Colcrys *] 0.6 mg PO DAILY #7 tab 07/24/23 Isosorbide Mononitrate [Isosorbide Mononitrate ER] 30 mg PO DAILY 30 Days #30 tab 07/24/23 allopurinoL [Allopurinol] 100 mg PO DAILY #30 tab 07/24/23 lisinopriL [Prinivil*] 20 mg PO DAILY #30 tab 07/24/23 Furosemide [Lasix] 40 mg PO M,W,F #15 tab 07/26/23 Potassium Chloride [K-Dur] 10 meq PO M,W,F #15 tab 07/26/23 - Past Medical/Surgical History Has patient received pneumonia vaccine in the past: Yes Diabetic: No -: HTN -: Cirrhosis -: Hepatitis C -: Inguinal Hernia -: Anxiety -: Sinus Problems -: COPD -: A. Fib -: sinus sx -: hernia repair Psychosocial/ Personal History: Lives at home, alone. 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 - Social History Smoking Status: Former smoker Alcohol use: No CD- Drugs: No Caffeine use: Yes Place of Residence: Home Review of Systems 10-point ROS is otherwise unremarkable Gastrointestinal: Nausea, Vomiting, Abdominal Pain, Diarrhea, Distention, Constipation Physical Examination - Physical Exam General: Alert, In no apparent distress, Oriented x3 HEENT: Atraumatic, PERRLA, EOMI Neck: Supple, 2+ carotid pulse no bruit, No LAD Respiratory: Clear to auscultation bilaterally, Normal air movement Cardiovascular: Regular rate/rhythm, Normal S1 S2 Gastrointestinal: Hypoactive, Distended, Tenderness (moderate epigastric) Musculoskeletal: No tenderness Integumentary: No rashes Neurological: Normal speech, Normal strength at 5/5 x4 extr, Normal tone, Normal affect - Studies Laboratory Data (last 24 hrs) 08/26/23 08/26/23 03:57 03:57 WBC 10.20 Hgb 16.4 Hct 47.5 Plt Count 224 Sodium 134 L Potassium 3.4 L BUN 11 Creatinine 0.94 Glucose 141 H Magnesium 1.7 Total Bilirubin 1.2 H AST 21 ALT 49 Alkaline Phosphatase 74 Assessment and Plan - Plan Assessment: Small bowel obstruction Borderline enlarged appendix Diabetes mellitus type [id number] Atrial fibrillation on chronic coagulation COPD Hypertension Plan: Small bowel obstruction Borderline enlarged appendix Abdominal distention present-will insert NGT for decompression No RLQ tenderness, no secondary signs of appendicitis on CT General surgery consulted/notified Suspect this is related to recent initiation of Trulicity Does have history of hernia repair many years ago Diabetes mellitus type [id number]-excuidg-vhwbzxmcr Every 6 hours Accu-Chek, sliding scale insulin Atrial fibrillation on chronic coagulation Therapy Lovenox until tolerating p.o. Resume Eliquis when tolerating p.o. COPD As needed nebulizer treatments Hypertension Continue home medication when tolerating p.o. As needed IV medications for now DVT PPX: Therapeutic Lovenox-resume Eliquis when tolerating p.o. Code status: Full Discharge Plan: Home Plan to discharge in: 72 Hours - Advance Directives Does patient have a Living Will: No Does patient have a Durable POA for Healthcare: No - Code Status/Comfort Care Code Status Assessed: Yes (Full code) Critical Care: No Time Spent Managing Pts Care (In Minutes): 70
[2023-08-26] MEDS: NA CHLORIDE 0.9% 1,000 ML IV SCH (10:47)
--- NOTE | 2023-08-26 11:47 | RAD REPORT ---
EXAM DESCRIPTION: RAD - Abdomen 1 View (KUB) - 08/26/2023 11:21 am CLINICAL HISTORY: Device placement nasogastric tube placement FINDINGS: The tip of a nasogastric tube lies within the distal gastric fundus
[2023-08-26] MEDS: MAGNESIUM SULFATE 1 gm IVPB 1 GM/100 ML BAG IV ONE ×2 (12:07→12:15)
[2023-08-26] MEDS: POTASSIUM CL 40 MEQ in NA CHLORIDE 0.9% 500 ML IV SCH (13:20)
[2023-08-26] MEDS: IPRATROPIUM BROM 0.5MG/2.5ML NEB PRN (16:00)
[2023-08-26] MEDS: ALBUTEROL 2.5 MG/3 ML NEB SOL NEB PRN (16:00)
[2023-08-26] MEDS: MORPHINE 4 MG/ML SYR IV PRN (16:48)
--- NOTE | 2023-08-26 19:19 | CON ---
Date of Consultation: 08/26/2023 Diagnosis: Small-bowel obstruction. History Of Present Illness: This is a case of a 62-year-old patient comes to us with abdominal diste ntion. He point that out to coincide with the initiation of injections. An injection is talking abo ut is Trulicity. He says he can pinpoint to the moment of that since then he has been nauseous. His intestines are not working properly. He also became a little bit more constipated than usual to the point he has take laxative. He has been for few weeks until last night it just got worse so he decided this morning to come to the ER, found to have a small bowel obstruction. His abdomen is not a rigid or peritonitis, but is distended. He denies any dysuria, hematuria, hematochezia, jack mary. Denies any recent traveling out of the country. Denies any family member sick at home. He allen s not remember the time of his last colonoscopy. Review of Systems: Nausea, vomiting, abdominal pain, combination of diarrhea and constipations and see HPI ten points ot herwise unremarkable. Past Surgical History: Include right inguinal hernia repair more than 30 years ago. Medical Problems: Include COPD, atrial fibrillation, anxiety, hepatitis C, cirrhosis, hypertension. Social History: He does not smoke anymore. He used to be a former smoker. He does not drink alcoho l. Medications: Include albuterol, glimepiride, metformin, Trulicity, lisinopril, furosemide, potassium . Physical Examination: Vital Signs: Reviewed. General: The patient is awake, alert. HEENT: Pupils are equal and reactive. Anicteric. Neck: Supple. Chest: Clear. Abdomen: Soft and depressible. He did complain mainly epigastric tenderness. Right lower quadrant shows no tenderness whatsoever. No guarding or rebound. No peritoneal signs. Abdomen is softly dis tended. Bowel sounds are present. RECTAL: Deferred. EXTREMITIES: Good capillary refill. Laboratory Data: Blood work shows a WBC count of 10 with hemoglobin of 16.4, platelets of 224. Pota ssium 3.4, total bilirubin of 1.2. UA; wbc count less than 5. CAT scan of the abdomen and pelvis in terpreted by Dr. Arrieta as moderate dilatation of multiple loops of small bowel within the right ab domen decompress. Borderline enlargement of appendix. No stranding adjacent. Small ingu inal hernias. Assessment: This is a 62-year-old patient comes to us with abdominal distention. The main discomfor t is right in the epigastric area, although he has no Waddell sign and his abdomen is distended. ____ CAT scan, which showed a bowel loops in that area. The right lower quadrant clinically looks benign with no pain in that area whatsoever. Obviously, we look like that since the CAT scan mention ed a borderline appendix with no stranding even though the mentioning that they asked us t o follow him clinically. Plan: Continue bowel rest, ambulation, NG tube. We going to continue serial abdominal examinations and proceed accordingly. We explained to him the options of laparotomy, possible bowel resection, an d at that moment, obviously he is trying to continue conservative treatment, although he understands his surgical option since we explained that to him and also the benefits, alternatives, and risks, wh ich include, but not limited to infection, bleeding, damage to adjacent structures, anesthesia compli cation, further adhesions in the future. HM/MODL Voice ID: [id number] Report ID: [id number]
[2023-08-27] MEDS: LORazepam 2 MG/ML VIAL IV ONE ×2 (00:45→21:35)
[2023-08-27] MEDS: ONDANSETRON 4 MG/2 ML VIAL IV PRN (05:21)
[2023-08-27 06:45] LABS: Absolute Eosinophils 0.3 K/uL (0-0.5); Absolute Lymphocytes (CBC) 1.4 K/uL (0.7-4.9); Absolute Monocytes 0.5 K/uL (0.1-1.3); Absolute Neutrophil 4.9 K/uL (1.8-8.0); Basophils % 0.7 % (0-1.3); Eosinophils % 4.4 % (0-4.4); Hematocrit 42.9 % (39.6-49.0); Hemoglobin 14.6 g/dL (13.6-17.9); Lymphocytes % 19.3 % (15.3-44.8); MCHC 33.9 g/dL (32.0-36.0); MCV 97.3 fL (80-100); MPV 7.3 fL (7.6-11.3); Monocytes % 7.1 % (3.3-12.3); Neutrophils % 68.5 % (41.7-73.7); Nucleated Red Blood Cells % 0.2 % (0-0); Platelets 188 thou/uL (152-406); RBC Red Blood Cell Count 4.41 M/uL (4.33-5.43); Red Cell Distribution Width 13.3 % (12.1-15.2)
[2023-08-27 07:07] LABS: Magnesium 2.2 mg/dL (1.6-2.4)
--- NOTE | 2023-08-27 07:58 | RAD REPORT ---
EXAM DESCRIPTION: RAD - Abdomen 1 View (KUB) - 08/27/2023 4:28 am CLINICAL HISTORY: sbo eval All pain COMPARISON: Abdomen 1 View (KUB) dated 08/26/2023 FINDINGS: Body habitus limits quality of the study. Enteric tube tip appears in the stomach. No alison l obstruction is seen.
--- NOTE | 2023-08-27 09:43 | P.PN ---
Date of Service: 08/27/23 Subjective: Passing gas no BM yet NGT to LIWS ROS: 10 point ROS as noted above, otherwise negative Physical exam GEN: Alert, oriented, NAD HEENT: Normal conjunctiva, sclera anicteric CV: Regular rate and rhythm, no edema Pulm: Nonlabored respirations on room air ABD: Soft, nontender, distended but improving MSK: No joint tenderness Integumentary: No rashes Neuro: Normal speech, normal affect Vitals reviewed Assessment: Small bowel obstruction Borderline enlarged appendix Diabetes mellitus type [id number] Atrial fibrillation on chronic coagulation COPD Hypertension Plan: Small bowel obstruction Borderline enlarged appendix Abdominal distention present but improving, tolerating NGT to LIWS No RLQ tenderness, no secondary signs of appendicitis on CT KUB with signs of improvement General surgery consulted-following Suspect this is related to recent initiation of Trulicity Does have history of hernia repair many years ago Diabetes mellitus type [id number]-gtwaimv-zofoaenjv Every 6 hours Accu-Chek, sliding scale insulin Atrial fibrillation on chronic coagulation Therapy Lovenox until tolerating p.o. Resume Eliquis when tolerating p.o. COPD As needed nebulizer treatments Hypertension Continue home medication when tolerating p.o. As needed IV medications for now DVT PPX: Therapeutic Lovenox-resume Eliquis when tolerating p.o. Code status: Full Discharge Plan: Home Plan to discharge in: 72 Hours Time Spent Managing Pts Care (In Minutes): 35
[2023-08-27] MEDS: HYDRALAZINE HCL 20 MG/ML VIAL IV PRN (16:17)
[2023-08-27] MEDS: MONTELUKAST 10 MG TAB PO SCH (20:00)
[2023-08-27] MEDS: ATORVASTATIN 10 MG TAB PO SCH (20:00)
[2023-08-27] MEDS: DOCUSATE NA 100 MG CAP PO SCH (20:01)
--- NOTE | 2023-08-28 00:56 | PN ---
Date of Progress Note: 08/27/2023 Diagnosis: Small bowel obstruction. Subjective: The patient is doing better. He is passing gas. He has had bowel movement. The abdome n is less distended. He is feeling great. Objective: Chest: Clear. Abdomen: Soft and depressible. Bowel sounds positive. Extremities: Good capillary refill. X-ray shows dissolution of the small bowel obstruction. Laboratory Data: Blood work reviewed. Plan: Advance diet. He was advised to see his heat reader for small bowel obstruction and la beverley bowel followup. He was also advised to come to office in 1 week. He was advised the importance of food selection. If the pain comes back again, come to the ER immediately. We are going to josselyn li diet. JACI/IVORY Voice ID: [id number] Report ID: [id number]
[2023-08-28 07:06] LABS: Absolute Basophils 0.1 K/uL (0-0.5); Absolute Eosinophils 0.3 K/uL (0-0.5); Absolute Lymphocytes (CBC) 1.6 K/uL (0.7-4.9); Absolute Monocytes 0.6 K/uL (0.1-1.3); Absolute Neutrophil 4.4 K/uL (1.8-8.0); Basophils % 0.8 % (0-1.3); Eosinophils % 3.9 % (0-4.4); Hematocrit 40.5 % (39.6-49.0); Hemoglobin 13.8 g/dL (13.6-17.9); Lymphocytes % 22.8 % (15.3-44.8); MCH 32.9 pg (27.0-35.0); MCV 96.9 fL (80-100); MPV 7.6 fL (7.6-11.3); Monocytes % 8.6 % (3.3-12.3); Neutrophils % 63.9 % (41.7-73.7); Platelets 168 thou/uL (152-406); RBC Red Blood Cell Count 4.18 M/uL (4.33-5.43); Red Cell Distribution Width 13.2 % (12.1-15.2)
[2023-08-28 07:14] LABS: Anion Gap 5.8 mEq/L (5.0-15.0); Potassium 3.8 mEq/L (3.5-5.1)
--- NOTE | 2023-08-28 08:31 | RAD REPORT ---
EXAM DESCRIPTION: RAD - Abdomen 1 View (KUB) - 08/28/2023 4:29 am CLINICAL HISTORY: sbo eval COMPARISON: Abdomen 1 View (KUB) dated 08/27/2023; Abdomen 1 View (KUB) dated 08/26/2023; Abdomen Pelv is W Contrast dated 08/26/2023 TECHNIQUE: Single AP view of the abdomen. FINDINGS: Mild gaseous distention of small bowel in the central abdomen and right hemiabdomen. The p attern has improved since the recent abdominal CT. No air-fluid levels, free air, or pneumatosis. No suspicious calcifications. No significant bony abnormality. IMPRESSION: Improving gaseous distention as above.
[2023-08-28] MEDS: ISOSORBIDE MONO SR 30 MG TAB PO SCH (09:02)
[2023-08-28] MEDS: lisinopriL 20 MG TAB PO SCH (09:02)
[2023-08-28] MEDS: allopurinoL 100 MG TAB PO SCH (09:03)
[2023-08-28] MEDS: ASPIRIN EC 81 MG TAB PO SCH (09:03)
[2023-08-28 09:14] VITALS: BP 140/78
[2023-08-28 10:25] VITALS: TEMP 97.2
[2023-08-28 10:49] VITALS: O2SAT 94
--- NOTE | 2023-08-28 10:53 | P.DS ---
Admission Date: 08/26/23 Discharge Date: 08/28/23 Disposition: ROUTINE DISCHARGE Discharge Condition: GOOD Consultations: General surgeryDr. Segovia Brief History of Present Illness: 62-year-old male with history of diabetes mellitus type [id number], hypertension, COPD, atrial fibrillation on chronic anticoagulation with known thoracic aortic aneurysm presents to the emergency department chief complaint of abdominal pain, vomiting. He reports that he started Trulicity about a week and a half ago and since then has been having some GI symptoms, after his last injection on Sunday the he began to have nausea, on Sunday he developed significant abdominal pain and vomiting has been feeling unwell since then. His last normal bowel movement was Sunday the , he did have small amount of diarrhea on Sunday the . He was evaluated in the emergency department today his labs are significant for sodium 134 potassium 3.4 white blood cell 10.2 CT of the abdomen pelvis was performed IV contrast which revealed suspected small bowel obstruction and borderline enlargement of the appendix. ED wishes to admit patient for small bowel obstruction. Hospital Course: Assessment: Small bowel obstruction Borderline enlarged appendix Diabetes mellitus type [id number] Atrial fibrillation on chronic coagulation COPD Hypertension Patient was admitted to the hospital for small bowel obstruction, his symptoms started shortly after starting the medication Trulicity which may have contributed to the development of a bowel obstruction. He was treated conservatively with nasogastric tube, IV fluids and bowel rest and had significant proved in his symptoms. He has been passing gas, abdomen is nondistended and he is tolerating full liquids at this time. He was seen by general surgery as well, patient stable for discharge at this time. Please follow-up with your primary care doctor 1 to 2 weeks He should also follow-up with Dr. Segovia general surgery 1 to 2 weeks and schedule appointment to follow-up with a GI doctor Vital Signs/Physical Exam: Temp Pulse Resp BP Pulse Ox 97.2 F 64 15 140/78 94 08/28/23 08:00 08/28/23 09:08/28/23 08:00 08/28/23 09:08/28/23 08:00 General: Alert, In no apparent distress, Oriented x3 HEENT: Atraumatic, PERRLA Neck: Supple, JVD not distended Respiratory: Clear to auscultation bilaterally, Normal air movement Cardiovascular: Regular rate/rhythm, Normal S1 S2 Gastrointestinal: Normal bowel sounds, No tenderness Musculoskeletal: No tenderness Integumentary: No rashes Neurological: Normal speech, Normal tone, Normal affect Laboratory Data at Discharge: WBC 6.90 thou/uL (4.3-10.9) 08/28/23 06:25 Hgb 13.8 g/dL (13.6-17.9) 08/28/23 06:25 Hct 40.5 % (39.6-49.0) 08/28/23 06:25 Plt Count 168 thou/uL (152-406) 08/28/23 06:25 Sodium 138 mEq/L (136-145) 08/28/23 06:25 Potassium 3.8 mEq/L (3.5-5.1) 08/28/23 06:25 BUN 9 mg/dL (7-18) 08/28/23 06:25 Creatinine 0.78 mg/dL (0.70-1.30) 08/28/23 06:25 Glucose 122 mg/dL (74-106) H 08/28/23 06:25 Magnesium 2.0 mg/dL (1.6-2.4) 08/28/23 06:25 Total Bilirubin 1.2 mg/dL (0.2-1.0) H 08/26/23 03:57 AST 21 U/L (15-37) 08/26/23 03:57 ALT 49 U/L (16-61) 08/26/23 03:57 Alkaline Phosphatase 74 U/L (45-117) 08/26/23 03:57 Home Medications: Albuterol Sulfate [Albuterol Sulfate Hfa] 2 puff IH Q6HP PRN 07/21/23 Ipratropium [place] 2.5 ml NEB TID 07/21/23 Ipratropium/Albuterol Sulfate [Iprat-Albut 0.5-3(2.5) mg/3 ml] 3 ml IH Q6HR 07/21/23 Metformin HCl 500 mg PO BID 07/21/23 Montelukast [Singulair*] 10 mg PO BEDTIME 07/21/23 Aspirin [Aspirin EC 81 MG] 81 mg PO DAILY #30 tab 07/24/23 Atorvastatin Calcium [Lipitor*] 10 mg PO BEDTIME 30 Days #30 tab 07/24/23 Colchicine [Colcrys *] 0.6 mg PO DAILY #7 tab 07/24/23 allopurinoL [Allopurinol] 100 mg PO DAILY #30 tab 07/24/23 Furosemide [Lasix] 40 mg PO M,W,F #15 tab 07/26/23 Potassium Chloride [K-Dur] 10 meq PO M,W,F #15 tab 07/26/23 Dulaglutide [Trulicity] 0.75 mg SQ EVERY 7TH DAY 08/26/23 Isosorbide Mononitrate [Isosorbide Mononitrate ER] 60 mg PO DAILY 08/26/23 Levocetirizine Dihydrochloride [Allergy Relief] 5 mg PO DAILY 08/26/23 lisinopriL [Prinivil*] 40 mg PO DAILY 08/26/23 Physician Discharge Instructions: Patient was admitted to the hospital for small bowel obstruction, his symptoms started shortly after starting the medication Trulicity which may have contributed to the development of a bowel obstruction. He was treated conservatively with nasogastric tube, IV fluids and bowel rest and had significant proved in his symptoms. He has been passing gas, abdomen is nondistended and he is tolerating full liquids at this time. He was seen by general surgery as well, patient stable for discharge at this time. Please follow-up with your primary care doctor 1 to 2 weeks He should also follow-up with Dr. Segovia general surgery 1 to 2 weeks and schedule appointment to follow-up with a GI doctor Diet: full liqui Activity: Ad lul Followup: Jaxson Segovia MD [ACTIVE - CAN ADMIT] - Ida Du FNP [Primary Care Provider] - 1-2 Weeks Time spent managing pt's care (in minutes): 35
== END 2023-08-28 10:50 | disposition home or self-care (01) | DRG 390 ==
LOC: ER 03:26 → ERHOLD 08:54 → 4TH 10:00
PROVIDERS: ADMIT Internal Medicine Sleep Medicine; ATTEND Hospitalist
PROC: 0DH67UZ Insertion of Feeding Device into Stomach, Via Natural or Artificial Opening (ICD-10-PCS; principal; 2023-08-26)
DX: K56.609 Unspecified intestinal obstruction, unspecified as to partial versus complete obstruction (principal); I10 Essential (primary) hypertension; E11.9 Type 2 diabetes mellitus without complications; I48.91 Unspecified atrial fibrillation; K59.00 Constipation, unspecified; J44.9 Chronic obstructive pulmonary disease, unspecified; Z88.0 Allergy status to penicillin; Z60.2 Problems related to living alone; Z88.5 Allergy status to narcotic agent; Z79.82 Long term (current) use of aspirin; Z79.01 Long term (current) use of anticoagulants; Z79.84 Long term (current) use of oral hypoglycemic drugs; Z79.02 Long term (current) use of antithrombotics/antiplatelets; Z91.018 Allergy to other foods; Z79.899 Other long term (current) drug therapy; Z87.891 Personal history of nicotine dependence
CPT/HCPCS: 36415; 74018; 74177; 80048; 80076; 81001; 82947; 83735; 85025; 94640; 96374; 96375; 99285; J0360; J1650; J2405; J2765; J3475; J3480; J7030; J7040; J7613; J7644; Q9967